=== PATIENT | male | born 1950 | race Caucasian/White ===

== ENCOUNTER → 2016-12-17 | Outpatient (CLI) | payer OTHER, MEDICARE ==
[~2016-12-17] MED LIST: ACET-1311 PO; ALT10 PO; ATEN-175 PO; CRS10 PO; GLC500 PO; LABE300T PO; PANT40TA PO; SPIR50TA2 PO
[2016-12-17 11:12] LABS: BASO % 0.3 %; BASO ABS # 0.03 K/uL (0-0.2); COMPLETE YES; EOS % 2.6 %; HEMATOCRIT 37.7 % (42-52); IG% 0.3 %; LYMPH % 16.7 %; LYMPH ABS # 1.51 K/uL (1.2-3.4); MEAN CELL VOLUME 91.1 fL (80-100); MEAN CORPUSCULAR HGB CONC 32.9 g/dl (32-36); MEAN PLATELET VOLUME 10.9 fL (7.4-10.4); MONO % 5.8 %; NEUT % 74.3 %; PLATELET COUNT 250 K/uL (130-400); RED BLOOD COUNT 4.14 M/uL (4.7-6.1); WHITE BLOOD COUNT 9.06 K/uL (4.8-10.8)
[2016-12-17 11:26] LABS: ESTIMATED AVERAGE GLUCOSE 151 mg/dl; HA1C FLAG Normal (Normal)
[2016-12-17 11:44] LABS: ALT/SGPT 21 U/L (12-78); AST/SGOT 12 U/L (15-37); BLOOD UREA NITROGEN 15 mg/dl (7-18); BUN/CREATININE RATIO 13.7 (10-20); CALCIUM 8.5 mg/dl (8.5-10.1); CARBON DIOXIDE 26 mmol/L (21-32); CHLORIDE 102 mmol/L (98-107); GLUCOSE 140 mg/dl (70-99); SODIUM 138 mmol/L (136-145)
[2016-12-17 11:48] LABS: ALB/GLOB RATIO 0.9 (0.9-2); ALKALINE PHOSPHATASE 95 U/L (45-117); CHOLESTEROL 166 mg/dl (0-200); CHOLESTEROL/HDL RATIO 4.3; HDL CHOLESTEROL 39 mg/dl; LDL CHOLESTEROL CALCULATED 81 mg/dl; TRIGLYCERIDES 229 mg/dl (0-150); VERY LOW DENSITY LIPOPROT CALC 46 mg/dl
[2016-12-17 11:50] LABS: RATIO 104.3 mcg/mg (0-30.0)
== END | disposition home or self-care (01) ==
LOC: C.LAB1850 09:49
PROVIDERS: ATTEND Nurse Practitioner Family
DX: E11.9 Type 2 diabetes mellitus without complications (principal); I10 Essential (primary) hypertension; E78.00 Pure hypercholesterolemia, unspecified; E88.81 Metabolic syndrome and other insulin resistance; K21.9 Gastro-esophageal reflux disease without esophagitis

== ENCOUNTER → 2017-01-21 | Outpatient (CLI) | payer OTHER, MEDICARE ==
[~2017-01-21] MED LIST changes: +ATEN50TA8 PO; +ATOR-24 PO; +CHOL20007 PO; +GLIM1TAB2 PO; +KRIL1000 PO; +LABE1TAB28 PO; +METF-384 PO; +RAMI10CA PO; +[UNRECOGNIZED DRUG - CODE] PO; +[UNRECOGNIZED DRUG - OTHER] PO
[2017-01-21 12:52] LABS: URINE APPEARANCE CLEAR (CLEAR); URINE BILIRUBIN NEG (NEG); URINE COLOR YELLOW; URINE EPITHELIAL CELL AUTO >30 /lpf (0-5); URINE NITRITE NEG (NEG); URINE SPECIFIC GRAVITY 1.011 (1.000-1.030); UROBILINOGEN NEG (NEG); ZZUR CULT IF INDIC CLEAN CATCH NO
[2017-01-21 12:57] LABS: MANUAL MICROSCOPIC REQUIRED? NO; REVIEW REQ? NO
[2017-01-21 13:06] LABS: URINE PROTIEN/CREAT RATIO 0.2 (0-0.2); URINE TOTAL PROTEIN 9.6 mg/dl (0-11.9)
[2017-01-21 13:14] LABS: BLOOD UREA NITROGEN 25 mg/dl (7-18); CARBON DIOXIDE 22 mmol/L (21-32); CHLORIDE 101 mmol/L (98-107); GLUCOSE 151 mg/dl (70-99); POTASSIUM 5.2 mmol/L (3.5-5.1); SODIUM 133 mmol/L (136-145)
[2017-01-21 13:15] LABS: PHOSPHORUS 3.2 mg/dl (2.5-4.9)
[2017-01-21 13:29] LABS: CALCIUM 9.6 mg/dl (8.5-10.1)
[2017-01-23 06:12] LABS: ALBUMIN 3.8 G/DL (3.8-4.8); ALBUMIN % 67.66 %; ALPHA-2-GLOBULIN % 9.07 %; BETA GLOBULIN % 11.58 %; CREATININE UR 58 MG/DL (20-370); GAMMA GLOBULIN 0.8 G/DL (0.8-1.7); GAMMA GLOBULIN % 6.11 %; TOTAL PROTEIN 6.9 G/DL (6.2-8.3)
--- NOTE | 2017-01-29 06:58 | CODING QUERY MEDICAL NECESSITY ---
CQSUPPORTING DIAGNOSIS NEEDED A supporting diagnosis is required for the test/procedure performed on this patient in order for us to be reimbursed by the patient's insurance. Please provide a supporting diagnosis for the following test/procedure listed below next to the test name along with your signature. *If there is no additional diagnosis for this patient that would support the following test/procedure please document that below next to the test/procedure. Test(s)/Procedure(s) that require a supporting diagnosis: DOS 01/21/17 VITAMIN D TEST Provider Signature: Date: Thank you Tamie Barakat Health Information Management Once completed, please kindly fax back to [phone] For questions please call [phone]
== END | disposition home or self-care (01) ==
LOC: C.LAB1850 10:41
PROVIDERS: ATTEND Internal Medicine Nephrology
DX: E83.42 Hypomagnesemia (principal); R80.9 Proteinuria, unspecified; E55.9 Vitamin D deficiency, unspecified

== ENCOUNTER → 2017-04-07 | Outpatient (CLI) | payer OTHER, MEDICARE ==
[~2017-04-07] MED LIST changes: -ATEN50TA8 PO; -ATOR-24 PO; -CHOL20007 PO; -GLIM1TAB2 PO; -KRIL1000 PO; -LABE1TAB28 PO; -METF-384 PO; -RAMI10CA PO; -[UNRECOGNIZED DRUG - CODE] PO; -[UNRECOGNIZED DRUG - OTHER] PO
[2017-04-07 10:57] LABS: ALT/SGPT 23 U/L (12-78); AST/SGOT 16 U/L (15-37); BLOOD UREA NITROGEN 25 mg/dl (7-18); BUN/CREATININE RATIO 17.9 (10-20); CARBON DIOXIDE 24 mmol/L (21-32); CHLORIDE 103 mmol/L (98-107); GLUCOSE 139 mg/dl (70-99); MAGNESIUM 1.9 mg/dl (1.8-2.4); POTASSIUM 5.4 mmol/L (3.5-5.1); SODIUM 136 mmol/L (136-145)
[2017-04-07 10:59] LABS: ALKALINE PHOSPHATASE 99 U/L (45-117)
[2017-04-07 11:22] LABS: RATIO 7.3 mcg/mg (0-30.0)
[2017-04-07 11:27] LABS: ESTIMATED AVERAGE GLUCOSE 143 mg/dl; HA1C FLAG Normal (Normal)
== END | disposition home or self-care (01) ==
LOC: C.LAB1850 09:26
PROVIDERS: ATTEND Internal Medicine Nephrology
DX: I10 Essential (primary) hypertension (principal); E78.00 Pure hypercholesterolemia, unspecified; E88.81 Metabolic syndrome and other insulin resistance; K21.9 Gastro-esophageal reflux disease without esophagitis; E83.42 Hypomagnesemia; E11.40 Type 2 diabetes mellitus with diabetic neuropathy, unspecified; Z12.11 Encounter for screening for malignant neoplasm of colon

== ENCOUNTER → 2017-05-19 | Outpatient (CLI) | payer OTHER, MEDICARE ==
[2017-05-19 12:59] LABS: BLOOD UREA NITROGEN 20 mg/dl (7-18); BUN/CREATININE RATIO 14.2 (10-20); CALCIUM 9.4 mg/dl (8.5-10.1); CARBON DIOXIDE 23 mmol/L (21-32); CHLORIDE 102 mmol/L (98-107); GLUCOSE 155 mg/dl (70-99); POTASSIUM 4.9 mmol/L (3.5-5.1); SODIUM 132 mmol/L (136-145)
== END | disposition home or self-care (01) ==
LOC: C.LAB1850 10:30
PROVIDERS: ATTEND Nurse Practitioner Family
DX: E87.5 Hyperkalemia (principal)

== ENCOUNTER → 2017-07-28 | Outpatient (CLI) | payer OTHER, MEDICARE ==
[~2017-07-28] MED LIST changes: +ATEN50TA8 PO; +ATOR-24 PO; +CHOL20007 PO; +GLIM1TAB2 PO; +KRIL1000 PO; +LABE1TAB28 PO; +METF-384 PO; +RAMI10CA PO; +[UNRECOGNIZED DRUG - CODE] PO; +[UNRECOGNIZED DRUG - OTHER] PO
[2017-07-28 13:25] LABS: ESTIMATED AVERAGE GLUCOSE 140 mg/dl; HA1C FLAG Normal (Normal)
[2017-07-28 13:52] LABS: ALT/SGPT 18 U/L (12-78); AST/SGOT 13 U/L (15-37); BLOOD UREA NITROGEN 22 mg/dl (7-18); BUN/CREATININE RATIO 16.5 (10-20); CALCIUM 9.1 mg/dl (8.5-10.1); CARBON DIOXIDE 23 mmol/L (21-32); CHLORIDE 102 mmol/L (98-107); CHOLESTEROL 181 mg/dl (0-200); CREATININE 1.33 mg/dl (0.60-1.40); GLUCOSE 152 mg/dl (70-99); MAGNESIUM 1.8 mg/dl (1.8-2.4); POTASSIUM 4.5 mmol/L (3.5-5.1); SODIUM 135 mmol/L (136-145); TRIGLYCERIDES 215 mg/dl (0-150); VERY LOW DENSITY LIPOPROT CALC 43 mg/dl
[2017-07-28 13:57] LABS: ALKALINE PHOSPHATASE 107 U/L (45-117); CHOLESTEROL/HDL RATIO 4.9; HDL CHOLESTEROL 37 mg/dl; LDL CHOLESTEROL CALCULATED 101 mg/dl; PHOSPHORUS 3.4 mg/dl (2.5-4.9)
[2017-07-28 15:21] LABS: RATIO 31.1 mcg/mg (0-30.0)
[2017-07-30 17:23] LABS: ALBUMIN 3.8 G/DL (3.8-4.8); GAMMA GLOBULIN 0.7 G/DL (0.8-1.7); TOTAL PROTEIN 6.5 G/DL (6.2-8.3)
== END | disposition home or self-care (01) ==
LOC: C.LAB1850 10:32
PROVIDERS: ATTEND Internal Medicine Nephrology
DX: R80.9 Proteinuria, unspecified (principal); E11.9 Type 2 diabetes mellitus without complications; I10 Essential (primary) hypertension; E78.00 Pure hypercholesterolemia, unspecified; E88.81 Metabolic syndrome and other insulin resistance; E87.5 Hyperkalemia

== ENCOUNTER → 2017-08-20 | Day surgery (SDC) | payer OTHER, MEDICARE ==
[2017-08-06 14:38] VITALS: BMI 49.0
[~2017-08-20] VITALS: Ht 172.7 cm; Wt 145.4 kg
[~2017-08-20] MED LIST changes: -ACET-1311 PO; -ALT10 PO; -ATEN-175 PO; -CRS10 PO; -GLC500 PO; -LABE300T PO; +PROPOFOL IV EMULSION 10 MG/ML 20 ML VIAL IV ONE; +SODIUM CHLORIDE 0.9% 500ML 500 ML IV ONE; -[UNRECOGNIZED DRUG - CODE] PO
[2017-08-20 08:09] VITALS: Ht 172.7 cm; Wt 145.4 kg
--- NOTE | 2017-08-20 08:51 | Endo History and Physical ---
History & Physical Date of Service: Aug 20, 2017. Chief Complaint: screening Referring Physician: Hai EVANS History of Present Illness 66 yo CM who presents for screening colonoscopy. Past Surgical History Hx Cardiac Surgery: No Hx Internal Defibrillator: No Hx Pacemaker: No Hx Abdominal Surgery: No Hx of Implantable Prosthesis: No Hx Post-Op Nausea and Vomiting: No Hx Cancer Surgery: No Hx Thoracic Surgery: No Hx Orthopedic: No Hx Urinary Tract Surgery: No Family History None Social History Smoking Status: Former Smoker Hx Substance Use: No Hx Alcohol Use: No Allergies Coded Allergies: No Known Allergies (Verified , NONE, 08/20/17) Current Medications Reported Home Medications Medications Dose Route/Sig Max Daily Dose Days Date Category Glucophage (Metformin Hcl) 1,000 Mg Tab 1,000 Mg PO BID 08/06/17 Reported Vitamin D3 (Cholecalciferol) 2,000 Unit Tab 1 Tab PO DAILY 08/06/17 Reported Krill Oil 1 Cap Cap 1 Cap PO DAILY 08/06/17 Reported [Super Mag] 400 Mg PO QID 08/06/17 Reported Protonix (Pantoprazole Sodium) 40 Mg Tab 40 Mg PO BID PRN 08/06/17 Reported Lipitor (Atorvastatin Calcium) 40 Mg Tab 40 Mg PO QPM 08/06/17 Reported Glimepiride 1 Mg Tab 1 Tab PO BID 08/06/17 Reported Normodyne (Labetalol HCl) 200 Mg Tab 200 Mg PO QAM 08/06/17 Reported Aldactone (Spironolactone) 50 Mg Tab 50 Mg PO BID 08/06/17 Reported Tenormin (Atenolol) 50 Mg Tab 50 Mg PO BID 08/06/17 Reported Ramipril 10 Mg Cap 1 Cap PO QAM 08/06/17 Reported Vital Signs Weight (Kilograms): 145.45 Height (Feet): 5 Height (Inches): 8 Date Time Temp Pulse Resp B/P (MAP) Pulse Ox O2 Delivery O2 Flow Rate FiO2 08/20/17 08:16 36.9 72 18 143/100 (114) 93 Room Air Physical Exam General Appearance: WD/WN, no apparent distress Respiratory/Chest: Auscultation: breath sounds normal Cardiovascular: Heart Auscultation: RRR Abdomen: Bowel Sounds: normal Inspection & Palpation: soft, non-distended, no tenderness, guarding & rebound Assessment and Plan Assessment: 66 yo CM who presents for screening colonoscopy. Plan: Proceed with colonoscopy.
--- NOTE | 2017-08-20 09:35 | Anesthesiology Progress Note ---
Anesthesia Post Op Note Date & Time Aug 20, 2017 at 09:35 Vital Signs Pain Intensity: 0 Vital Signs Past 12 Hours Date Time Temp Pulse Resp B/P (MAP) Pulse Ox O2 Delivery O2 Flow Rate FiO2 08/20/17 09:25 72 16 98/53 (68) 95 Room Air 08/20/17 08:16 36.9 72 18 143/100 (114) 93 Room Air Notes Mental Status: alert / awake / arousable, participated in evaluation Pt Amnestic to Procedure: Yes Nausea / Vomiting: adequately controlled Pain: adequately controlled Airway Patency, RR, SpO2: stable & adequate BP & HR: stable & adequate Hydration State: stable & adequate Anesthetic Complications: no major complications apparent
--- NOTE | 2017-08-20 09:41 | Discharge Instructions ---
Endoscopy Patient Instructions Date / Procedure(s) Performed Aug 20, 2017. Colonoscopy Allergy Information Coded Allergies: No Known Allergies (Verified , NONE, 08/20/17) Discharge Date / Findings Aug 20, 2017. Colon polyps Diverticulosis Internal hemorrhoids Medication Instructions Stopped Medication(s): METFORMIN AND SUPPLEMENTS OK to resume all medications today as prescribed Reported Home Medications Medications Dose Route/Sig Max Daily Dose Days Date Category Glucophage (Metformin Hcl) 1,000 Mg Tab 1,000 Mg PO BID 08/06/17 Reported Vitamin D3 (Cholecalciferol) 2,000 Unit Tab 1 Tab PO DAILY 08/06/17 Reported Krill Oil 1 Cap Cap 1 Cap PO DAILY 08/06/17 Reported [Super Mag] 400 Mg PO QID 08/06/17 Reported Protonix (Pantoprazole Sodium) 40 Mg Tab 40 Mg PO BID PRN 08/06/17 Reported Lipitor (Atorvastatin Calcium) 40 Mg Tab 40 Mg PO QPM 08/06/17 Reported Glimepiride 1 Mg Tab 1 Tab PO BID 08/06/17 Reported Normodyne (Labetalol HCl) 200 Mg Tab 200 Mg PO QAM 08/06/17 Reported Aldactone (Spironolactone) 50 Mg Tab 50 Mg PO BID 08/06/17 Reported Tenormin (Atenolol) 50 Mg Tab 50 Mg PO BID 08/06/17 Reported Ramipril 10 Mg Cap 1 Cap PO QAM 08/06/17 Reported Provider Instructions Activity Restrictions - No exercising or heavy lifting for 24 hours. - Do not drink alcohol the day of the procedure. - Do not drive a car or operate machinery until the day after the procedure. - Do not make any important decisions or sign important papers in 24 hours after the procedure. Following Day: - Return to full activity which may include returning to work/school. Diet Start your diet with liquids and light foods (jello, soup, juice, toast). Then eat your usual diet if not nauseated. Treatment For Common After Affects For mild abdominal pain, bloating, or excessive gas: - Rest - Eat lightly - Lie on right side Follow-Up Information Follow-up with Hai EVANS as scheduled Anesthesia Information What You Should Know You have had a procedure that required some medicine to reduce anxiety and discomfort. This treatment is called moderate sedation. After receiving the treatment, you may be sleepy, but you will be able to breathe on your own. The effects of the treatment may last for several hours. Follow these instructions along with Activity/Diet recommendations noted above: * Do NOT do anything where dizziness or clumsiness would be dangerous. * Rest quietly at home today, then you can be up and about tomorrow. * Have a responsible person stay with you the rest of today. * You may have had an I.V. today. If so, you may take the dressing off later today. Recommendations Call your doctor if: * Trouble breathing * Continuous vomiting for more than 24 hours * Temperature above 101 degrees * Severe abdominal pain or bloating * Pain not relieved by pain medicine ordered * There is increased drainage or redness from any incision * A large amount of rectal bleeding greater than 2-3 tablespoons. (If you had a polyp/s removed or have hemorrhoids, a small amount of blood - from the rectum is to be expected.) * You have any unanswered questions or concerns. IN THE EVENT OF A SERIOUS EMERGENCY, GO TO THE NEAREST EMERGENCY ROOM Your discharge instructions were prepared by provider Gerardo Ibrahim. Patient Instructions Signature Page Henri Granado Patient (or Guardian) Signature/Date: I have read and understand the instructions given to me by my caregivers. Caregiver/RN/Doctor Signature/Date: The above-named patient and/or guardian has received patient instructions on this date. + Original Patient Signature Page (only) stays with chart. Please make copy for patient.
[2017-08-20 09:58] VITALS: BP 124/62; PULSE 62; O2SAT 93
--- NOTE | 2017-08-20 10:32 | GI REPORT ---
Procedure Date: 08/20/2017 8:25 AM Procedure: Colonoscopy Indications: Screening for colorectal malignant neoplasm Medicines: Monitored Anesthesia Care Complications: No immediate complications. Estimated Blood Loss: Estimated blood loss: none. Procedure: Pre-Anesthesia Assessment: - Prior to the procedure, a History and Physical was performed, and patient medications and allergies were reviewed. The patient's tolerance of previous anesthesia was also reviewed. The risks and benefits of the procedure and the sedation options and risks were discussed with the patient. All questions were answered, and informed consent was obtained. Prior Anticoagulants: The patient has taken no previous anticoagulant or antiplatelet agents. ASA Grade Assessment: III - A patient with severe systemic disease. After reviewing the risks and benefits, the patient was deemed in satisfactory condition to undergo the procedure. After I obtained informed consent, the scope was passed under direct vision. Throughout the procedure, the patient's blood pressure, pulse, and oxygen saturations were monitored continuously. The scope was introduced through the anus and advanced to the terminal ileum. The colonoscopy was performed without difficulty. The patient tolerated the procedure well. The quality of the bowel preparation was good. The terminal ileum, ileocecal valve, appendiceal orifice, and rectum were photographed. Findings: Four sessile polyps were found in the sigmoid colon and in the ascending colon. The polyps were 4 to 7 mm in size. These polyps were removed with a hot snare. Resection and retrieval were complete. Multiple small-mouthed diverticula were found in the sigmoid colon. Non-bleeding internal hemorrhoids were found during retroflexion. The hemorrhoids were small. Impression: - Four 4 to 7 mm polyps in the sigmoid colon and in the ascending colon, removed with a hot snare. Resected and retrieved. - Diverticulosis in the sigmoid colon. - Non-bleeding internal hemorrhoids. Recommendation: - Resume previous diet. - Continue present medications. - Repeat colonoscopy for surveillance based on pathology results. - Return to primary care physician as previously scheduled. Gerardo Ibrahim, DO 08/20/2017 9:46:14 AM This report has been signed electronically. Note Initiated On: 08/20/2017 8:25 AM I attest to the content of the Intraoperative Record and orders documented therein, exceptions below
== END | disposition home or self-care (01) ==
LOC: C.GI 07:28
PROVIDERS: ATTEND Internal Medicine
DX: Z12.11 Encounter for screening for malignant neoplasm of colon (principal); D12.5 Benign neoplasm of sigmoid colon; D12.2 Benign neoplasm of ascending colon; K64.8 Other hemorrhoids; K57.90 Diverticulosis of intestine, part unspecified, without perforation or abscess without bleeding

== ENCOUNTER → 2018-01-26 | Outpatient (CLI) | payer OTHER, MEDICARE ==
[~2018-01-26] MED LIST changes: -PROPOFOL IV EMULSION 10 MG/ML 20 ML VIAL IV ONE; -SODIUM CHLORIDE 0.9% 500ML 500 ML IV ONE
[2018-01-26 12:57] LABS: HEMOGLOBIN A1C 6.9 % (4.5-5.6)
[2018-01-26 13:05] LABS: ALBUMIN 3.4 gm/dl (3.4-5.0); ALT/SGPT 21 U/L (12-78); AST/SGOT 15 U/L (15-37); BLOOD UREA NITROGEN 26 mg/dl (7-18); CARBON DIOXIDE 24 mmol/L (21-32); CREATININE 1.36 mg/dl (0.60-1.40); GLUCOSE 144 mg/dl (70-99); POTASSIUM 4.6 mmol/L (3.5-5.1); SODIUM 134 mmol/L (136-145)
[2018-01-26 13:09] LABS: ALKALINE PHOSPHATASE 100 U/L (45-117); CHOLESTEROL 176 mg/dl (0-200); LDL CHOLESTEROL CALCULATED 94 mg/dl; PHOSPHORUS 3.5 mg/dl (2.5-4.9); TOTAL PROTEIN 7.5 gm/dl (6.4-8.2)
[2018-01-26 14:59] LABS: CREATININE RANDOM URINE 76.5 mg/dl
== END | disposition home or self-care (01) ==
LOC: C.LAB1850 10:08
PROVIDERS: ATTEND Internal Medicine Nephrology
DX: E87.5 Hyperkalemia (principal); R80.9 Proteinuria, unspecified; I10 Essential (primary) hypertension; E83.42 Hypomagnesemia; E11.9 Type 2 diabetes mellitus without complications; E78.00 Pure hypercholesterolemia, unspecified; E88.81 Metabolic syndrome and other insulin resistance

== ENCOUNTER 2024-02-01 13:26 | Inpatient (IN) ==
[2024-02-01 14:27] LABS: Basophils # (auto) 0.06 K/uL (0.00-0.20); Basophils % (auto) 0.5 %; Eosinophils # (auto) 0.26 K/uL (0.00-0.50); Eosinophils % (auto) 2.2 %; Hematocrit (blood only) 40.8 % (42.0-52.0); Hemoglobin 13.5 g/dl (14.0-18.0); Immature Granulocytes # (auto) 0.04 K/uL (0.01-0.20); Immature Granulocytes % (auto) 0.3 %; Lymphocytes # (auto) 1.86 K/uL (1.20-3.40); Lymphocytes % (auto) 15.7 %; Mean Corpuscular Hgb Conc 33.1 g/dL (32.0-36.0); Mean Corpuscular Volume 93.6 fL (80.0-100.0); Mean Platelet Volume 10.4 fL (9.4-12.4); Monocytes # (auto) 0.84 K/uL (0.11-0.59); Monocytes % (auto) 7.1 %; Neutrophils # (auto) 8.78 K/uL (1.40-6.50); Neutrophils % (auto) 74.2 %; Platelet Count 210 K/uL (130-400); RDW Coefficient of Variation 12.9 % (11.5-14.5); RDW Standard Deviation 44.2 fL (36.4-46.3); Red Blood Count 4.36 M/uL (4.70-6.10); White Blood Count 11.84 K/ul (4.8-10.8)
[2024-02-01 14:39] LABS: Alanine Aminotransferase 16 U/L (7-52); Albumin Globulin Ratio 1.6 (0.9-2); Albumin Level 4.3 gm/dl (3.4-5.0); Alkaline Phosphatase 74 U/L (34-104); Anion Gap 11 (3-11); Aspartate Aminotransferase 18 U/L (13-39); BUN Creatinine Ratio 11.7 (10-20); Bilirubin,Total 0.4 mg/dl (0.2-1.0); Blood Urea Nitrogen 20 mg/dl (6-23); Calcium 8.9 mg/dl (8.6-10.3); Carbon Dioxide 22 mmol/L (21-32); Chloride 107 mmol/L (98-107); Creatinine Clr Calc Pharmacy 42.1 ml/min; Est GFR (African American) 45.4 ml/min; Est GFR (Non-African American) 39.1 ml/min; Globulin 2.7 gm/dl (2.5-4.0); Glucose 103 mg/dl (70-99(Fasting)); Potassium 3.6 mmol/L (3.5-5.1); Sodium 140 mmol/L (136-145)
--- NOTE | 2024-02-01 14:51 | Emergency Department Note ---
Impression & Plan Weakness, Diarrhea ED Provider Note NAME: GABRIELLA BECKER AGE: 73 SEX: Male INFORMANT: Patient ED PROVIDER(S): Alin Oliveira MD CHIEF COMPLAINT: Weakness PLAN: Disposition: Admitted Outpatient prescription management: None Referral: None MEDICAL DECISION MAKING: Patient presented to the emergency room because of feeling increased weakness. He noted having low magnesium and sodium on outpatient lab testing. He has decreased his magnesium supplementation due to loose stool which she states is a recurrent issue for him. The patient had an IV established. Blood work was obtained. Patient sodium was normal on testing. His magnesium was undetectable which was very concerning. IV magnesium replacement was ordered. Patient had a slight leukocytosis. Due to to the weakness and complaints of some back discomfort he did have x-ray imaging of the chest and thoracic spine. No abnormalities were noted. Patient will need further management in the hospital. [facility] Case was discussed with Dr. Barnhart and evaluated the patient in the ER and admitted him for further management and magnesium replacement. Care/management discussed with: manager vehicle Level of care consideration(s): After review of the information above and other included data, I feel the patient requires escalation of care to admission Triage Nursing notes: reviewed and agree them. Vital Signs: reviewed and remarkable for hypertension Additional History obtained from: none Chronic Medical/Social Conditions affecting care: Diabetes Prior/ Outside/ External records reviewed: none Differential Diagnosis: Infection, dehydration, metabolic abnormality, hypo/hyperglycemia, electrolyte disturbance, anemia, hypoxia, cardiac sources, intracerebral event, toxicologic, neurologic, as well as other pathologies. Diagnostics, independently interpreted by me: ECG: Twelve-lead ECG rhythm normal sinus rate 65 bpm low-voltage QRS. No ST elevation depression. Cardiac Monitoring: Cardiac monitoring ordered by me: The patient was placed on continuous cardiac monitoring and observed. It revealed a normal sinus rhythm at 65 beats per minute without ectopy or evidence of dysrhythmia. Medical decision rules: none Imaging studies: Chest x-ray. Findings: A chest x-ray was performed and revealed no pneumothorax, effusion, infiltrate, pulmonary edema, free air under the diaphragm, or wide mediastinum. Impression: No acute disease. RIB FRACTURE CARE: Definitive fracture care for rib fractures. Closed injury. No associated lung trauma. Patient educated, pain management reinforced, follow-up instructions provided. HPI: 73 year old Male arrives for evaluation of weakness. This started over the last and is seem to improve yesterday but then worsened in the afternoon and throughout the day today. The patient also notes the following associated symptoms, fluctuating levels of diarrhea and nausea. Patient felt more weak this afternoon and presented to the emergency department for evaluation.. The patient has taken no medication for relieving factors. Current pain is rated as mild. Patient noted some discomfort in his lower thoracic back. Denies any trauma. Patient states that he had outpatient blood work done and his magnesium was low at 1.2. His sodium was 130. Pt denies LOC, headache, fevers, chills, diaphoresis, neck pain, chest pain, breathing difficulties, vomiting, abdominal pain, back pain, melena, hematochezia, urinary symptoms, numbness, lymphadenopathy, rash, or other complaints. . PAST MEDICAL HISTORY: See Below, diabetes PAST SURGICAL HISTORY: See Below, SOCIAL HISTORY: See Below, retired HOME MEDICATIONS: See Below ALLERGIES: See Below VITALS: See Below PHYSICAL EXAMINATION: GENERAL: Awake, tired-appearing, in no distress HENT: Normocephalic, atraumatic. Oropharynx unremarkable. EYES: Normal conjunctiva. Sclera non-icteric. NECK: Inspection normal. Non-tender. Supple. No nuchal rigidity. FROM. No masses. RESPIRATORY: Clear to auscultation. No wheezes. No rales. Normal respiratory effort. CARDIAC: Normal rate. Normal rhythm. No murmurs. No rubs. Extremities warm and well perfused. Pulses equal. No JVD. GI: Soft, non-distended. No tenderness to palpation. No rebound or guarding. No masses. RECTAL: Deferred. MUSCULOSKELETAL: Atraumatic. Chest examination reveals no tenderness. The back is kyphotic on inspection without obvious abnormality. There is no CVA tenderness to palpation. No joint edema. LOWER EXTREMITIES: Calves are equal size bilaterally and non-tender. No edema. No discoloration. NEURO: Normal sensorium. No foot sensory or motor deficits noted. Mild resting tremor SKIN: No rash or jaundice noted. PROCEDURES: none CRITICAL CARE: none OBSERVATION NOTE: none Past Med/Surg History Medical History Hypomagnesemia Osteoarthritis Diabetes mellitus Gastroesophageal reflux disease Hypercholesterolemia Hypertension Obesity Proteinuria Surgical History No significant past surgical history Family History Father Congestive heart failure Mother Coronary heart disease Myocardial infarction Type 2 diabetes mellitus Brother Essential hypertension Sister Myocardial infarction Denies family history of Ovarian cancer Prostate cancer Kidney disease Breast cancer Colorectal cancer Social History Smoking Status: Former smoker Tobacco Type: Cigarettes Age Started Using Tobacco: 21; Second Hand Exposure: No; Do You Dip or Chew Tobacco: No; Hx Alcohol Use: No Hx Substance Use: No Preferred Language: Polish Communication Ability: Effective Visual Impairment: No Limitations Hearing Ability: Normal Consumer Lender Required: No Beliefs That Will Affect Care: None marital status: Single Current Living Situation: Family current occupational status: retired Feels Safe at Home: Yes Childhood Exposure to Second-Hand Smoke: No Diet: regular caffeine: Yes during the past year weight has: remained stable Dental Care, Regularly: Yes Physical Activity Frequency: Does not Exercise Seatbelt Use: always Sunscreen Use: No Assistive Devices: Glasses Allergies Allergies Allergy/AdvReac Type Severity Reaction Status Date / Time No Known Allergies Allergy Verified 02/01/24 15:20 Home Meds Home Medications Medication Instructions Recorded Confirmed [facility]/19 01/27/24 Ultra Blue Test Strip) cholecalciferol (vitamin D3) 25 3,000 units PO QDL 06/24/19 02/01/24 mcg (1,000 unit) capsule lancets 33 gauge (One[facility] #100 ea 06/24/19 01/27/24 Lancets) flaxseed 1,000 mg capsule 1,000 mg PO QDL 05/28/23 02/01/24 krill 500 mg-omega-3 150 mg-dha 45 1 cap PO QDL 05/28/23 02/01/24 mg-epa 75 [id number] capsule (krill oil) vitamin B complex 1 cap PO QPM 05/28/23 02/01/24 atenolol 50 mg tablet 25 mg PO QAM 02/01/24 02/01/24 atorvastatin 20 mg tablet 20 mg PO DAILY 02/01/24 02/01/24 atorvastatin 40 mg tablet 40 mg PO DAILY 02/01/24 02/01/24 spironolactone 50 mg tablet 50 mg PO QDL 02/01/24 02/01/24 Previous Rx's Medication Instructions Recorded furosemide 20 mg tablet 20 mg PO DAILY PRN edema #90 tabs 07/16/22 ramipril 10 mg capsule 10 mg PO BID #180 caps 07/02/23 diclofenac sodium 1 % topical gel 4 g topical QID PRN Joint Pain 90 07/04/23 days #300 grams glimepiride 1 mg tablet 1 mg PO BID #180 tabs 01/19/24 magnesium chloride 64 mg 64 mg PO BID #180 tabs 01/26/24 (magnesium chloride) tablet,delayed release pantoprazole 40 mg tablet,delayed 40 mg PO DAILY #90 tabs 01/26/24 release metformin 1,000 mg tablet 1,000 mg PO DAILY #90 tabs 01/27/24 Results & Data (ED) Vital Signs Vital Signs - 24 hr 02/01/24 13:40 02/01/24 15:07 Temperature 36.3 C L Temperature Source Temporal Artery Scan Pulse Rate 69 65 Respiratory Rate 20 Respiratory Effort / Characteristics Non-Labored Spontaneous Respiratory Depth Normal Blood Pressure 159/96 H Blood Pressure Mean 117 Pulse Oximetry 97 Oxygen Delivery Method Room Air Sepsis Recent Fever Within 48 Hours No Sepsis New/Unexplained Change in Mental Status N/A Sepsis Action Taken by Nursing No Action Required Laboratory Data 02/01/24 14:01 02/01/24 14:01 Lab Results 02/01/24 Range/Units 14:01 WBC 11.84 H (4.8-10.8) K/ul RBC 4.36 L (4.70-6.10) M/uL Hgb 13.5 L (14.0-18.0) g/dl Hct 40.8 L (42.0-52.0) % MCV 93.6 (80.0-100.0) fL MCH 31.0 (25.0-34.0) pg MCHC 33.1 (32.0-36.0) g/dL RDW Std Deviation 44.2 (36.4-46.3) fL RDW Coeff of Jonathan 12.9 (11.5-14.5) % Plt Count 210 (130-400) K/uL MPV 10.4 (9.4-12.4) fL Immature Gran % (Auto) 0.3 % Neut % (Auto) 74.2 % Lymph % (Auto) 15.7 % Webb % (Auto) 7.1 % Eos % (Auto) 2.2 % Baso % (Auto) 0.5 % Neut # (Auto) 8.78 H (1.40-6.50) K/uL Lymph # (Auto) 1.86 (1.20-3.40) K/uL Webb # (Auto) 0.84 H (0.11-0.59) K/uL Eos # (Auto) 0.26 (0.00-0.50) K/uL Baso # (Auto) 0.06 (0.00-0.20) K/uL Immature Gran # (Auto) 0.04 (0.01-0.20) K/uL Sodium 140 (136-145) mmol/L Potassium 3.6 (3.5-5.1) mmol/L Chloride 107 (98-107) mmol/L Carbon Dioxide 22 (21-32) mmol/L Anion Gap 11 (3-11) BUN 20 (6-23) mg/dl Creatinine 1.71 H (0.6-1.4) mg/dl Est Cr Clr Drug Dosing 42.1 ml/min Est GFR ( Amer) 45.4 ml/min Est GFR (Non-Af Amer) 39.1 ml/min BUN/Creatinine Ratio 11.7 (10-20) Glucose 103 H (70-99(Fasting)) mg/dl Calcium 8.9 (8.6-10.3) mg/dl Magnesium < 0.5 L* (1.7-2.4) mg/dl Total Bilirubin 0.4 (0.2-1.0) mg/dl AST 18 (13-39) U/L ALT 16 (7-52) U/L Alkaline Phosphatase 74 (34-104) U/L Troponin I High Sens 10.8 (0-20) pg/ml Total Protein 7.0 (6.0-8.3) gm/dl Albumin 4.3 (3.4-5.0) gm/dl Globulin 2.7 (2.5-4.0) gm/dl Albumin/Globulin Ratio 1.6 (0.9-2) Administered Medications Discontinued Medications Sodium Chloride (Nss) 500 mls @ 999 mls/hr IV .Q31M ONE Stop: 02/01/24 15:15 Last Infusion: 02/01/24 15:29 Dose: Infused Documented By: Admin: 02/01/24 14:52 Dose: 999 mls/hr Documented By: ELISABETH Sodium Chloride (Nss) 1,000 mls @ 125 mls/hr IV .Q8H [facility] Stop: 03/02/24 14:44 Last Admin: 02/01/24 15:30 Dose: 125 mls/hr Documented By: FAY Magnesium Sulfate/Dextrose (Magnesium Sulfate / D5w) 1 gm in 100 mls @ 100 mls/hr IV ONE ONE Stop: 02/01/24 16:24 Last Admin: 02/01/24 16:59 Dose: 100 mls/hr Documented By: FAY Magnesium Sulfate/Dextrose (Magnesium Sulfate / D5w) 1 gm in 100 mls @ 200 mls/hr IV Q30M [facility] Stop: 02/01/24 16:31 Last Infusion: 02/01/24 17:02 Dose: Infused Documented By: Admin: 02/01/24 16:24 Dose: 200 mls/hr Documented By: Infusion: 02/01/24 16:23 Dose: Infused Documented By: Admin: 02/01/24 15:50 Dose: 200 mls/hr Documented By: DAI Potassium Chloride (Potassium Chloride Crtab 20 Meq Tabcr) 40 meq PO NOW STA Stop: 02/01/24 16:09 Last Admin: 02/01/24 16:34 Dose: 40 meq Documented By: FAY Imaging Data Radiologist's Impression: Chest X-Ray 02/01/24 14:46 XR chest 2V PA/lateral HISTORY: weakness, back pain, nausea COMPARISON: Chest 04/03/2010. FINDINGS: The lungs are clear. Cardiac silhouette is normal in size. No pleural effusions. No pneumothorax. Degenerative changes within the right shoulder and lower thoracic spine. Calcified granuloma seen within the base of the left lower lobe. IMPRESSION: No acute process. ACT 112: Negative or not required by law. Electronically signed by: Raul Willams M.D. 02/01/2024 3:25 PM Thoracic Spine X-Ray 02/01/24 14:46 THORACIC SPINE 3 VIEWS HISTORY: low thoracic back pain COMPARISON: Chest 05/24/2009. FINDINGS: There is no fracture. No subluxation. Moderate to severe disc space narrowing within the lower thoracic spine. Mild disc space narrowing within the upper to mid thoracic spine IMPRESSION: No fracture or subluxation within the thoracic spine. Degenerative changes most pronounced within the lower thoracic spine. ACT 112: Negative or not required by law. Electronically signed by: Raul Willams M.D. 02/01/2024 3:23 PM Discharge Plan Visit Data Chief Complaint: Weakness Stated Complaint: WEAK/SHAKEY/PAIN [facility] Provider: Alin Oliveira Discharge Problem: Weakness, Diarrhea Forms Stand Alone Forms: [facility] Prescriptions Prescriptions: No Action furosemide 20 mg tablet 20 mg PO DAILY PRN (Reason: edema) Qty: 90 1RF ramipril 10 mg capsule 10 mg PO BID Qty: 180 3RF diclofenac sodium 1 % gel 4 g topical QID PRN (Reason: Joint Pain) 90 Days Qty: 300 1RF Rx Instructions: apply to single knee, ankle, foot; for foot includes sole/toes/top of foot glimepiride 1 mg tablet 1 mg PO BID Qty: 180 3RF (DME) OneTouch Ultra Blue Test Strip strip See Dose Instructions .ROUTE .MEDSUPPLY Qty: 10 Rx Instructions: As directed (DME) lancets [OneTouch [employer] Lancets] 33 gauge misc See Dose Instructions .ROUTE .MEDSUPPLY Qty: 100 Rx Instructions: As directed cholecalciferol (vitamin D3) 1,000 unit capsule 3,000 units PO QDL Hold Instructions: Home Medication placed on hold at Doctor's office magnesium chloride 64 mg tablet,delayed release (DR/EC) 64 mg PO BID Qty: 180 3RF pantoprazole 40 mg tablet,delayed release (DR/EC) 40 mg PO DAILY Qty: 90 3RF metformin 1,000 mg tablet 1,000 mg PO DAILY Qty: 90 3RF vitamin B complex Capsule 1 cap PO QPM flaxseed 1,000 mg Capsule 1,000 mg PO QDL krill oil [id number] mg Capsule 1 cap PO QDL atorvastatin 40 mg tablet 40 mg PO DAILY Rx Instructions: TAKE 1 TABLET BY MOUTH DAILY TAKE ALONG WITH 20 MG TABLET FOR 60 MG DAILY atorvastatin 20 mg tablet 20 mg PO DAILY Rx Instructions: TAKE 1 TABLET BY MOUTH DAILY TAKE ALONG WITH 40 MG TABLET FOR 60 MG DAILY atenolol 50 mg tablet 25 mg PO QAM Rx Instructions: TAKE 1/2 TABLET BY MOUTH ONCE DAILY (qam) spironolactone 50 mg tablet 50 mg PO QDL Rx Instructions: TAKE 1 TABLET BY MOUTH DAILY (lunch) Referrals Referrals: Hai Khan III, CRNP [Primary Care Provider] -
[2024-02-01] MEDS: SODIUM CHLORIDE 0.9% 500 ML IV ONE (14:52)
[2024-02-01 15:11] LABS: Troponin I High Sensitivity 10.8 pg/ml (0-20)
[2024-02-01 15:24] LABS: Magnesium < 0.5 mg/dl (1.7-2.4)
--- NOTE | 2024-02-01 15:25 | XRay Report ---
THORACIC SPINE 3 VIEWS HISTORY: low thoracic back pain COMPARISON: Chest 05/24/2009. FINDINGS: There is no fracture. No subluxation. Moderate to severe disc space narrowing within the l ower thoracic spine. Mild disc space narrowing within the upper to mid thoracic spine IMPRESSION: No fracture or subluxation within the thoracic spine. Degenerative changes most pronounced within the lower thoracic spine. ACT 112: Negative or not required by law. Electronically signed by: Raul Willams M.D. 02/01/2024 3:23 PM
--- NOTE | 2024-02-01 15:27 | XRay Report ---
XR chest 2V PA/lateral HISTORY: weakness, back pain, nausea COMPARISON: Chest 04/03/2010. FINDINGS: The lungs are clear. Cardiac silhouette is normal in size. No pleural effusions. No pneumot horax. Degenerative changes within the right shoulder and lower thoracic spine. Calcified granuloma s een within the base of the left lower lobe. IMPRESSION: No acute process. ACT 112: Negative or not required by law. Electronically signed by: Raul Willams M.D. 02/01/2024 3:25 PM
[2024-02-01] MEDS: SODIUM CHLORIDE 0.9% 1,000 ML IV SCH (15:30)
[2024-02-01] MEDS: MAGNESIUM SULFATE / D5W 1 GM/100 ML BAG IV ONE (15:31)
--- NOTE | 2024-02-01 15:47 | History & Physical Report ---
Date of Service February 01, 2024 Assessment & Plan (1) Hypomagnesemia: Plan: Chronically low (on PPI) but acutely worse after stopping oral magnesium supplementation Mg sulfate 2g over 1 hour. Then 1g over 1 hour. Then 3g over 6 hours. Stop if bradycardic or he becomes short of breath and remeasure Mg level. Repeat Mg/BMP/PO q6h Aim Mg 3.6-4.9 overnight, K > 4 Consult nephrology (2) Gastroesophageal reflux disease: Plan: Continue pantoprazole, recently decreased to once daily (3) Diabetes mellitus: Plan: HbA1C 5.5 in December, no need to repeat Hold metformin, glyburide Novolog: --Goal BSG Range: Low 110 mg/dL, High 140 mg/dL --Correction Factor: 45 mg/dL/unit --Carbohydrate ratio = 15 g/unit --BSGs ACHS if eating, q6h if npo Consult pharmacy for ongoing glycemic control, may need basal tomorrow as his current morning medications are metabolized/excreted Plan HTN/hypercholesterolemia - continue his routine home meds VTE Prophylaxis - heparin 5000 units SQ BID Diet - T2DM Disposition - admit to PCU Admission and Anticipated Discharge Date Admission Date: February 01, 2024 History of Present Illness Chief Complaint: Generalized weakness Primary Care Provider: Hai Khan III, CRNP Henri Granado is a 73-year-old male who presents to the ER with generalized weakness, shakiness, back pain. He has a history of hypomagnesemia possibly secondary to PPI use (recently reduced from BID to daily dosing) with some diarrhea this week therefore he cut back on his magnesium as he felt this was contributing. No vision changes, no seizures or history of such, no palpitations. Symptoms started yesterday with generalized weakness, generally washed out, shaky, back pain above his ribs on both sides. His recent Mg level was 1.2 a week ago therefore with his current diarrhea he thought the Mg supplementation was not working. He switched to slow Mg a week ago but only took 3-4 tabs of this to avoid getting diarrhea. He feels his diarrhea has been worse since eating less and therefore the magnesium supplements having more of an effect since September. He was recently advised by his physician assistant surgery to cut back to once a day pantoprazole from BID and he has not noticed worsening of his GERD although he has had 10-15 seconds of nausea intermittently the last few days. Allergies Allergy/AdvReac Type Severity Reaction Status Date / Time No Known Allergies Allergy Verified 02/01/24 15:20 Home Medications Medication Instructions Recorded Confirmed Type blood sugar diagnostic (Viriuch #10 ea 06/24/19 01/27/24 History Ultra Blue Test Strip) cholecalciferol (vitamin D3) 25 3,000 units PO QDL 06/24/19 02/01/24 History mcg (1,000 unit) capsule lancets 33 gauge (Jazmine Delica #100 ea 06/24/19 01/27/24 History Lancets) furosemide 20 mg tablet 20 mg PO DAILY PRN edema #90 tabs 07/16/22 02/01/24 Rx flaxseed 1,000 mg capsule 1,000 mg PO QDL 05/28/23 02/01/24 History krill 500 mg-omega-3 150 mg-dha 45 1 cap PO QDL 05/28/23 02/01/24 History mg-epa 75 mt-fapctjo-gnllz capsule (krill oil) vitamin B complex 1 cap PO QPM 05/28/23 02/01/24 History ramipril 10 mg capsule 10 mg PO BID #180 caps 07/02/23 02/01/24 Rx diclofenac sodium 1 % topical gel 4 g topical QID PRN Joint Pain 90 07/04/23 02/01/24 Rx days #300 grams glimepiride 1 mg tablet 1 mg PO BID #180 tabs 01/19/24 02/01/24 Rx magnesium chloride 64 mg 64 mg PO BID #180 tabs 01/26/24 02/01/24 Rx (magnesium chloride) tablet,delayed release pantoprazole 40 mg tablet,delayed 40 mg PO DAILY #90 tabs 01/26/24 02/01/24 Rx release metformin 1,000 mg tablet 1,000 mg PO DAILY #90 tabs 01/27/24 02/01/24 Rx atenolol 50 mg tablet 25 mg PO QAM 02/01/24 02/01/24 History atorvastatin 20 mg tablet 20 mg PO DAILY 02/01/24 02/01/24 History atorvastatin 40 mg tablet 40 mg PO DAILY 02/01/24 02/01/24 History spironolactone 50 mg tablet 50 mg PO QDL 02/01/24 02/01/24 History Past Med/Surg History Medical History Hypomagnesemia Osteoarthritis Diabetes mellitus Gastroesophageal reflux disease Hypercholesterolemia Hypertension Obesity Proteinuria Surgical History No significant past surgical history Family History Father Congestive heart failure Mother Coronary heart disease Myocardial infarction Type 2 diabetes mellitus Brother Essential hypertension Sister Myocardial infarction Denies family history of Ovarian cancer Prostate cancer Kidney disease Breast cancer Colorectal cancer Social History Smoking Status: Former smoker Tobacco Type: Cigarettes Age Started Using Tobacco: 21; Second Hand Exposure: No; Do You Dip or Chew Tobacco: No; Hx Alcohol Use: No Hx Substance Use: No Preferred Language: Russian Communication Ability: Effective Visual Impairment: No Limitations Hearing Ability: Normal 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 Beliefs That Will Affect Care: None marital status: Single Current Living Situation: Family current occupational status: retired Feels Safe at Home: Yes Childhood Exposure to Second-Hand Smoke: No Diet: regular caffeine: Yes during the past year weight has: remained stable Dental Care, Regularly: Yes Physical Activity Frequency: Does not Exercise Seatbelt Use: always Sunscreen Use: No Assistive Devices: Glasses Review of Systems Review of Systems: All systems reviewed & are unremarkable except as noted in HPI & below Physical Exam Constitutional: WD/WN, vitals as above Eyes: PERRL, conjunctivae normal, anicteric sclerae no nystagmus ENMT: external ear and nose normal, oropharynx normal Respiratory: normal respiratory effort, lungs clear to auscultation Cardiovascular: RRR, no murmur, no edema Gastrointestinal (Abdomen): normal bowel sounds, soft, nontender, no hepatosplenomegaly Musculoskeletal: no cyanosis or clubbing, extremities motor strength 5/5 Skin: no rashes, warm and dry Neurologic: moves all extremities and awake; + abnormal deep tendon reflexes (hyperreflexia) and not confused Psychiatric: A+Ox3, euthymic affect Genitourinary: no CVA tenderness Results & Data Results & Data Vital Signs (Past 12 Hours) Vital Signs Temp Pulse Resp BP Pulse Ox O2 Del Method 02/01/24 15:07 65 02/01/24 13:40 36.3 C L 69 20 159/96 H 97 Room Air Laboratory Results Abnormal lab results 02/01/24 Range/Units 14:01 WBC 11.84 H (4.8-10.8) K/ul RBC 4.36 L (4.70-6.10) M/uL Hgb 13.5 L (14.0-18.0) g/dl Hct 40.8 L (42.0-52.0) % Neut # (Auto) 8.78 H (1.40-6.50) K/uL [place]ton # (Auto) 0.84 H (0.11-0.59) K/uL Creatinine 1.71 H (0.6-1.4) mg/dl Glucose 103 H (70-99(Fasting)) mg/dl Magnesium < 0.5 L* (1.7-2.4) mg/dl Diagnostic Findings XR chest 2V PA/lateral HISTORY: weakness, back pain, nausea COMPARISON: Chest 04/03/2010. FINDINGS: The lungs are clear. Cardiac silhouette is normal in size. No pleural effusions. No pneumothorax. Degenerative changes within the right shoulder and lower thoracic spine. Calcified granuloma seen within the base of the left lower lobe. IMPRESSION: No acute process. THORACIC SPINE 3 VIEWS HISTORY: low thoracic back pain COMPARISON: Chest 05/24/2009. FINDINGS: There is no fracture. No subluxation. Moderate to severe disc space narrowing within the lower thoracic spine. Mild disc space narrowing within the upper to mid thoracic spine IMPRESSION: No fracture or subluxation within the thoracic spine. Degenerative changes most pronounced within the lower thoracic spine. Medications Administered ER medications given: Normal saline 500 mL bolus Magnesium sulfate 1 g IV ECG Rate (beats per minute): 65 Rhythm: normal sinus Findings: + other (T wave flattening widespread) Comparison ECG Date: from (April 03, 2010) Change: the following changes noted (T wave flattening anteriorly) Code Status & VTE Plan Code Status Full VTE Prophylaxis Plan VTE Prophylaxis will be ordered: Yes PG Care Time/CCT Total # of Minutes Spent Total Time Spent with Patient: Total time spent is greater than 50% in coordination of care (as documented) at patient's floor/unit and/or counseling patient: Coding Level of Care Code 65899 INT INP/OBS CARE Diagnoses Hypomagnesemia E83.42 Gastroesophageal reflux disease without esophagitis K21.9 Esophagitis presence: without esophagitis Type 2 diabetes mellitus with chronic kidney disease, without long-term current use of insulin, unspecified CKD stage E11.22 Chronic kidney disease stage: unspecified stage Diabetes mellitus complication detail: with chronic kidney disease Diabetes mellitus complication status: with kidney complications Diabetes mellitus terminologist insulin use: without terminologist use Diabetes mellitus type: type 2 (2) Gastroesophageal reflux disease Esophagitis presence: without esophagitis Qualified Code(s): K21.9 - Gastro- esophageal reflux disease without esophagitis (3) Diabetes mellitus Chronic kidney disease stage: unspecified stage Diabetes mellitus complication detail: with chronic kidney disease Diabetes mellitus complication status: with kidney complications Diabetes mellitus terminologist insulin use: without terminologist use Diabetes mellitus type: type 2 Qualified Code(s): E11.22 - Type 2 diabetes mellitus with diabetic chronic kidney disease
[2024-02-01] MEDS: MAGNESIUM SULFATE / D5W 1 GM/100 ML BAG IV SCH ×2 (15:50→20:41)
[2024-02-01] MEDS: POTASSIUM CHLORIDE CRTAB 20 MEQ TABCR PO STA (16:34)
[2024-02-01] MEDS: MAGNESIUM SULFATE / D5W 1 GM/100 ML BAG IV STA (18:22)
[2024-02-01] MEDS ORDERED: GLUCOSE 10 TAB/TUBE PO PRN (20:10)
[2024-02-01] MEDS ORDERED: PHARMACY GLYCEMIC MGMT CONSULT PRN (20:10)
[2024-02-01] MEDS ORDERED: DEXTROSE 50% 50 ML SYRINGE IV PRN (20:10)
[2024-02-01] MEDS ORDERED: GLUCOSE 40% GEL 15 GM TUBE PO PRN (20:10)
[2024-02-01] MEDS ORDERED: CARBOHYDRATES FOR HYPOGLYCEMIA PO PRN (20:10)
[2024-02-01] MEDS ORDERED: GLUCAGON FOR INJ 1 MG VIAL SQ PRN (20:10)
[2024-02-01] MEDS ORDERED: ENALAPRIL MALEATE 10 MG TAB PO SCH (21:00)
[2024-02-01] MEDS ORDERED: MAGNESIUM CHLORIDE W/CALCIUM 64MG DELAYED REL TAB PO SCH (21:00)
[2024-02-01] MEDS: HEPARIN SOD 5,000 UNIT/0.5 ML VIAL SQ SCH (21:12)
[2024-02-01] MEDS: INSULIN ASPART PER UNIT CHARGE SC SCH (21:20)
[2024-02-01] MEDS: VITAMIN B COMPLEX TAB PO SCH (21:21)
[2024-02-01 21:25] LABS: BUN Creatinine Ratio 12.5 (10-20); Calcium 8.2 mg/dl (8.6-10.3); Creatinine Clr Calc Pharmacy 47.4 ml/min; Est GFR (African American) 52.3 ml/min; Est GFR (Non-African American) 45.1 ml/min; Magnesium 1.5 mg/dl (1.7-2.4); Phosphorus 3.4 mg/dl (2.5-4.9); Potassium 3.8 mmol/L (3.5-5.1)
--- NOTE | 2024-02-01 23:15 | Electrocardiogram Report ---
Test Reason : Blood Pressure : / mmHG Vent. Rate : 065 BPM Atrial Rate : 065 BPM P-R Int : 186 ms QRS Dur : 092 ms QT Int : 364 ms P-R-T Axes : 056 025 048 degrees QTc Int : 378 ms Normal sinus rhythm Low voltage QRS Borderline ECG When compared with ECG of 03-APR-2010 19:51, QRS duration has decreased T wave amplitude has decreased in Anterior leads Confirmed by Yaya Kahn ([id number]) on 02/01/2024 11:15:16 PM Referred By: Confirmed By:Yaya Kahn
[2024-02-02 02:04] LABS: Appearance Urine Clear (Clear); Bilirubin Urine Negative (Negative); Blood Urine Negative (Negative); Color Urine Dark Yellow; Glucose Urine UA Negative (Negative); Ketones Urine Trace (Negative); Leukocyte Esterase Urine Negative (Negative); Nitrite Urine Negative (Negative); Protein Urine Negative (Negative); Specific Gravity Urine 1.018 (1.000-1.030); Urobilinogen Urine Negative (Negative)
[2024-02-02 03:27] LABS: BUN Creatinine Ratio 12.8 (10-20); Calcium 8.2 mg/dl (8.6-10.3); Creatinine Clr Calc Pharmacy 52.4 ml/min; Est GFR (Non-African American) 46.6 ml/min; Magnesium 1.6 mg/dl (1.7-2.4); Potassium 3.5 mmol/L (3.5-5.1)
[2024-02-02] MEDS ORDERED: POTASSIUM CHLORIDE / WTR 10 MEQ/100 ML PLCT IV SCH (04:00)
[2024-02-02] MEDS: POTASSIUM CHLORIDE CRTAB 20 MEQ TABCR PO STA (04:18)
[2024-02-02] MEDS: MAGNESIUM SULFATE / D5W 1 GM/100 ML BAG IV SCH (04:18)
[2024-02-02 07:24] LABS: BUN Creatinine Ratio 11.4 (10-20); Calcium 7.8 mg/dl (8.6-10.3); Est GFR (African American) 53.6 ml/min; Est GFR (Non-African American) 46.2 ml/min; Magnesium 1.9 mg/dl (1.7-2.4); Phosphorus 3.2 mg/dl (2.5-4.9); Potassium 3.9 mmol/L (3.5-5.1)
--- NOTE | 2024-02-02 08:33 | Nephrology Consultation ---
Date of Consultation February 02, 2024 Assessment & Plan (1) Hypomagnesemia: Improving with IV replacement. I have ordered magnesium chloride BID starting this afternoon. IV infusion to complete this morning. Henri received spironolactone this morning but I would consider switching to amiloride in the future. Consider dietary consult to discuss magnesium rich diet options. I suspect his PPI, diarrhea, and chronic metformin use are contributing to hypomagnesemia. Continue once daily PPI and wean as tolerated. May benefit from gastroenterology follow up regarding GI symptoms including persistent GERD and dyspepsia. (2) Diabetes mellitus with diabetic nephropathy: Remains on metformin. (3) Proteinuria: Recent evaluation reviewed. Close outpatient follow up in the nephrology clinic p discharge. Continue ramipril as Rx. (4) Diarrhea: Improving. Henri feels this is related to PO magnesium. We are trying to adjust therapy to something better tolerated. He was also advised that PRN Imodium may be considered. Ultimately, he may benefit from follow up with gastroenterology. (5) Diabetes mellitus: (6) Gastroesophageal reflux disease: Remains on pantoprazole 40 mg daily. History of Present Illness Reason for Consultation: hypomagnesemia Requesting Physician: Isaak Mccarthy Attending Physician: Isaak Mccarthy History of Present Illness Henri Granado is a 73 year-old male with diabetes mellitus, hypertension, obesity, GERD, OA/DJD, hypomagnesemia, and CKD. 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 Henri has followed with me in the clinic for several years. I recently saw Henri in the clinic ~1 week ago. Prior to this Henri's last clinic visit was in December 2022. Baseline creatinine ~1.5-1.9 mg/dL. MACR 12 mcg/mg. Kidney function has been stable for years. Serum magnesium had seemingly been controlled for at least 1 year. Henri gained weight over the holidays. He changed his diet in mid-September but developed worsening of chronic diarrhea around this time. He presented to the clinic last month with ongoing diarrhea and associated volume depletion. He stopped taking his OTC magnesium supplement and this helped with his GI symptoms. He did not endorse melena or hematochezia. He held ramipril intermittently due to low BP. He was not taking any furosemide. Henri was supplementing with Super Magnesium (Mg lactate + citrat e combination) for hypomagnesemia. Following the clinic visit, I advised that he stop his Super Magnesium supplement and try Magnesium Chloride. We also attempted to wean pantoprazole from 40 mg twice daily to once daily. He has not tolerated weaning his PPI in the past. He has a longstanding history of GERD. EGD was performed several years ago per Henri. He reports H pylori which was treated. Henri has been treated for hypertension since he was in his 40's. He required more than 1 agent for many years. In 2012, his PCP was concerned about an element of aldosteronism and Aldactone was added with reportedly good response. There was no confirmation of a diagnosis of hyperaldosteronism based on labs. Henri has a longstanding history of hypomagnesemia for many years. He has been treated with IV magnesium in the past. He developed diarrhea with magnesium oxide. He switched over to a complex magnesium supplement (Super Mag) and was tolerating this medication well for at least ~1 year. He does not consume alcohol. He has a history of a slight M spike on SPEP. On follow up testing, there was no change or development of progressive globulinemia. Immunofixation demonstrated a small band in IgM lambda in the past but more recently IgM K with very slight increase in alpha globulins on SPEP. UPEP by history showed non selective proteinuria. He has not had evidence of RTA otherwise. There is no other clinical evidence of paraproteinemia and no significant change overall in proteinuria. OA/DJD major limiting factor to activity tolerance. Henri states that he tolerated magnesium chloride for 3 days but on the 4th day he developed diarrhea with multiple loose watery bowel movements after taking the medication. He describes some increased abdominal bloating after reducing his PPI. He was experiencing mild nausea and some reflux while in bed this morning. He continues to restrict his calories and reports that he feels full after very small meals. He is not experiencing any diarrhea at this time. Some generalized weakness and shakiness persist but he is feeling significantly better than he did yesterday. Allergies Allergy/AdvReac Type Severity Reaction Status Date / Time No Known Allergies Allergy Verified 02/01/24 15:20 Home Medications Medication Instructions Recorded Confirmed Type blood sugar diagnostic (OneEyeAntTouch #10 ea 06/24/19 01/27/24 History Ultra Blue Test Strip) cholecalciferol (vitamin D3) 25 3,000 units PO QDL 06/24/19 02/01/24 History mcg (1,000 unit) capsule lancets 33 gauge (TaylaToayana Delalcides #100 ea 06/24/19 01/27/24 History Lancets) furosemide 20 mg tablet 20 mg PO DAILY PRN edema #90 tabs 07/16/22 02/01/24 Rx flaxseed 1,000 mg capsule 1,000 mg PO QDL 05/28/23 02/01/24 History krill 500 mg-omega-3 150 mg-dha 45 1 cap PO QDL 05/28/23 02/01/24 History mg-epa 75 [id number] capsule (krill oil) vitamin B complex 1 cap PO QPM 05/28/23 02/01/24 History ramipril 10 mg capsule 10 mg PO BID #180 caps 07/02/23 02/01/24 Rx diclofenac sodium 1 % topical gel 4 g topical QID PRN Joint Pain 90 07/04/23 02/01/24 Rx days #300 grams glimepiride 1 mg tablet 1 mg PO BID #180 tabs 01/19/24 02/01/24 Rx magnesium chloride 64 mg 64 mg PO BID #180 tabs 01/26/24 02/01/24 Rx (magnesium chloride) tablet,delayed release pantoprazole 40 mg tablet,delayed 40 mg PO DAILY #90 tabs 01/26/24 02/01/24 Rx release metformin 1,000 mg tablet 1,000 mg PO DAILY #90 tabs 01/27/24 02/01/24 Rx atenolol 50 mg tablet 25 mg PO QAM 02/01/24 02/01/24 History atorvastatin 20 mg tablet 20 mg PO DAILY 02/01/24 02/01/24 History atorvastatin 40 mg tablet 40 mg PO DAILY 02/01/24 02/01/24 History spironolactone 50 mg tablet 50 mg PO QDL 02/01/24 02/01/24 History Patient History Medical History Hypomagnesemia Osteoarthritis Diabetes mellitus Gastroesophageal reflux disease Hypercholesterolemia Hypertension Obesity Proteinuria Surgical History No significant past surgical history Family History Father Congestive heart failure Mother Coronary heart disease Myocardial infarction Type 2 diabetes mellitus Brother Essential hypertension Sister Myocardial infarction Denies family history of Ovarian cancer Prostate cancer Kidney disease Breast cancer Colorectal cancer Social History Smoking Status: Former smoker Tobacco Type: Cigarettes Age Started Using Tobacco: 21; Second Hand Exposure: No; Do You Dip or Chew Tobacco: No; Tobacco Cessation Education Requested by Patient: No Hx Alcohol Use: No Hx Substance Use: No Preferred Language: Chadian Communication Ability: Effective Visual Impairment: No Limitations Hearing Ability: Normal Bandmill Operator Required: No Beliefs That Will Affect Care: None marital status: Single Current Living Situation: Family current occupational status: retired Other Information That Helps Us Care for You: No Feels Safe at Home: Yes Childhood Exposure to Second-Hand Smoke: No Diet: regular caffeine: Yes during the past year weight has: remained stable Dental Care, Regularly: Yes Physical Activity Frequency: Does not Exercise Seatbelt Use: always Sunscreen Use: No Assistive Devices: Cane Review of Systems Review of Systems: All systems reviewed & are unremarkable except as noted in HPI & below Gastrointestinal: + heartburn, + nausea and + diarrhea/loo se stools Physical Exam Constitutional: well developed; no acute distress Eyes: no scleral abnormality and no corneal abnormality Neck: normal visual inspection and trachea midline Respiratory: normal respiratory effort Auscultation: lungs clear to auscultation bilaterally Cardiovascular: Rate/Rhythm: regular rate Heart Sounds: normal S1 and normal S2 Extremities: no edema Musculoskeletal: Extremities: no cyanosis and no clubbing Skin: normal turgor; no lesions Neurologic: Motor/Sensory: no tremor and no asterixis Psychiatric: Orientation: alert and oriented x 3 Results & Data Vital Signs (Past 12 Hours) Vital Signs Temp Pulse Pulse Pulse Resp BP Pulse Ox 02/02/24 07:44 36.7 C 89 19 139/85 93 02/02/24 02:43 36.6 C 81 18 143/79 H 95 02/01/24 22:55 36.5 C 70 18 156/83 H 95 02/01/24 22:00 65 02/01/24 21:58 36.9 C 75 16 172/91 H 96 O2 Del Method 02/02/24 07:44 Room Air 02/02/24 02:43 Room Air 02/01/24 22:55 Room Air 02/01/24 22:00 02/01/24 21:58 Room Air Laboratory Results Laboratory Results - last 24 hr 02/01/24 02/01/24 02/01/24 14:01 20:47 21:18 WBC 11.84 H RBC 4.36 L Hgb 13.5 L Hct 40.8 L MCV 93.6 MCH 31.0 MCHC 33.1 RDW Std Deviation 44.2 RDW Coeff of Jonathan 12.9 Plt Count 210 MPV 10.4 Immature Gran % (Auto) 0.3 Neut % (Auto) 74.2 Lymph % (Auto) 15.7 [place] % (Auto) 7.1 Eos % (Auto) 2.2 Baso % (Auto) 0.5 Neut # (Auto) 8.78 H Lymph # (Auto) 1.86 [place] # (Auto) 0.84 H Eos # (Auto) 0.26 Baso # (Auto) 0.06 Immature Gran # (Auto) 0.04 Sodium 140 140 Potassium 3.6 3.8 Chloride 107 109 H Carbon Dioxide 22 20 L Anion Gap 11 11 BUN 20 19 Creatinine 1.71 H 1.52 H Est Cr Clr Drug Dosing 42.1 47.4 Est GFR ( Amer) 45.4 52.3 Est GFR (Non-Af Amer) 39.1 45.1 BUN/Creatinine Ratio 11.7 12.5 Glucose 103 H 105 H POC Glucose 107 H Calcium 8.9 8.2 L Phosphorus 3.4 Magnesium < 0.5 L* 1.5 L Total Bilirubin 0.4 AST 18 ALT 16 Alkaline Phosphatase 74 Troponin I High Sens 10.8 Total Protein 7.0 Albumin 4.3 Globulin 2.7 Albumin/Globulin Ratio 1.6 Urine Color Urine Appearance Urine pH Ur Specific [place] Urine Protein Urine Glucose (UA) Urine Ketones Urine Blood Urine Nitrite Urine Bilirubin Urine Urobilinogen Ur Leukocyte Esterase 02/02/24 02/02/24 02/02/24 01:50 02:41 06:31 WBC RBC Hgb Hct MCV MCH MCHC RDW Std Deviation RDW Coeff of Jonathan Plt Count MPV Immature Gran % (Auto) Neut % (Auto) Lymph % (Auto) [place] % (Auto) Eos % (Auto) Baso % (Auto) Neut # (Auto) Lymph # (Auto) [place] # (Auto) Eos # (Auto) Baso # (Auto) Immature Gran # (Auto) Sodium 140 140 Potassium 3.5 3.9 Chloride 111 H 109 H Carbon Dioxide 20 L 22 Anion Gap 9 9 BUN 19 17 Creatinine 1.48 H 1.49 H Est Cr Clr Drug Dosing 52.4 52.0 Est GFR ( Amer) 54.0 53.6 Est GFR (Non-Af Amer) 46.6 46.2 BUN/Creatinine Ratio 12.8 11.4 Glucose 105 H 102 H POC Glucose Calcium 8.2 L 7.8 L Phosphorus 3.0 3.2 Magnesium 1.6 L 1.9 Total Bilirubin AST ALT Alkaline Phosphatase Troponin I High Sens Total Protein Albumin Globulin Albumin/Globulin Ratio Urine Color Dark Yellow Urine Appearance Clear Urine pH 5.0 Ur Specific [place] 1.018 Urine Protein Negative Urine Glucose (UA) Negative Urine Ketones Trace H Urine Blood Negative Urine Nitrite Negative Urine Bilirubin Negative Urine Urobilinogen Negative Ur Leukocyte Esterase Negative 02/02/24 07:12 WBC RBC Hgb Hct MCV MCH MCHC RDW Std Deviation RDW Coeff of Jonathan Plt Count MPV Immature Gran % (Auto) Neut % (Auto) Lymph % (Auto) [place] % (Auto) Eos % (Auto) Baso % (Auto) Neut # (Auto) Lymph # (Auto) [place] # (Auto) Eos # (Auto) Baso # (Auto) Immature Gran # (Auto) Sodium Potassium Chloride Carbon Dioxide Anion Gap BUN Creatinine Est Cr Clr Drug Dosing Est GFR ( Amer) Est GFR (Non-Af Amer) BUN/Creatinine Ratio Glucose POC Glucose 97 Calcium Phosphorus Magnesium Total Bilirubin AST ALT Alkaline Phosphatase Troponin I High Sens Total Protein Albumin Globulin Albumin/Globulin Ratio Urine Color Urine Appearance Urine pH Ur Specific [place] Urine Protein Urine Glucose (UA) Urine Ketones Urine Blood Urine Nitrite Urine Bilirubin Urine Urobilinogen Ur Leukocyte Esterase Diagnostic Findings XR chest 2V PA/lateral COMPARISON: Chest 04/03/2010. FINDINGS: The lungs are clear. Cardiac silhouette is normal in size. No pleural effusions. No pneumothorax. Degenerative changes within the right shoulder and lower thoracic spine. Calcified granuloma seen within the base of the left lower lobe. IMPRESSION: No acute process. ECG Additional Comments: Vent. Rate : 065 BPM Atrial Rate : 065 BPM P-R Int : 186 ms QRS Dur : 092 ms QT Int : 364 ms P-R-T Axes : 056 025 048 degrees QTc Int : 378 ms Normal sinus rhythm Low voltage QRS PG Care Time/CCT Total # of Minutes Spent Total Time Spent with Patient: Total time spent is greater than 50% in coordination of care (as documented) at patient's floor/unit and/or counseling patient: Coding Level of Care Code 81882 IN/OBS CONSULT LVL 4,60M Diagnoses Hypomagnesemia E83.42 Type 2 diabetes mellitus with diabetic nephropathy, without long-term current use of insulin E11.21 Diabetes mellitus general milling superintendent insulin use: without detention use Diabetes mellitus type: type 2 Proteinuria R80.9 Diarrhea R19.7 Type 2 diabetes mellitus with chronic kidney disease, without long-term current use of insulin, unspecified CKD stage E11.22 Chronic kidney disease stage: unspecified stage Diabetes mellitus complication detail: with chronic kidney disease Diabetes mellitus complication status: with kidney complications Diabetes mellitus general milling superintendent insulin use: without detention use Diabetes mellitus type: type 2 Gastroesophageal reflux disease without esophagitis K21.9 Esophagitis presence: without esophagitis (2) Diabetes mellitus with diabetic nephropathy Diabetes mellitus general milling superintendent insulin use: without detention use Diabetes mellitus type: type 2 Qualified Code(s): E11.21 - Type 2 diabetes mellitus with diabetic nephropathy (5) Diabetes mellitus Chronic kidney disease stage: unspecified stage Diabetes mellitus complication detail: with chronic kidney disease Diabetes mellitus complication status: with kidney complications Diabetes mellitus detention insulin use: without detention use Diabetes mellitus type: type 2 Qualified Code(s): E11.22 - Type 2 diabetes mellitus with diabetic chronic kidney disease (6) Gastroesophageal reflux disease Esophagitis presence: without esophagitis Qualified Code(s): K21.9 - Gastro- esophageal reflux disease without esophagitis
[2024-02-02] MEDS: ATORVASTATIN 40 MG TAB PO SCH (09:24)
[2024-02-02] MEDS: PANTOprazole 40 MG TAB PO SCH (09:24)
[2024-02-02] MEDS: ATENOLOL 25 MG TABLET PO SCH (09:24)
[2024-02-02] MEDS: ENALAPRIL MALEATE 10 MG TAB PO SCH (09:24)
[2024-02-02] MEDS: ATORVASTATIN 20 MG TAB PO SCH (09:24)
[2024-02-02] MEDS: SPIRONOLACTONE 25 MG TAB PO SCH (12:05)
--- NOTE | 2024-02-02 13:58 | Pharmacy Report ---
Pharmacy Glycemic Short Note 2 - Date of Service February 02, 2024 - Glycemic Short BSG Results (Last 24 hours): 02/01/24 02/01/24 02/01/24 14:01 20:47 21:18 Glucose 103 H 105 H POC Glucose 107 H 02/02/24 02/02/24 02/02/24 02:41 06:31 07:12 Glucose 105 H 102 H POC Glucose 97 02/02/24 02/02/24 09:50 12:07 Glucose POC Glucose 172 H 120 H OUTPATIENT ANTIDIABETIC REGIMEN: * metformin 1000mg PO daily * glimepiride 1mg PO BID * A1c= 5.5% 12/2023 per Hospitalist documentation ASSESSMENT: * Type 2 diabetic admitted for weakness, shakiness, hypomagnesemia. * Fasting BSG at goal this AM with no basal on board. Will continue to withhold basal and monitor fasting trend. * Post-prandial BSGs well controlled with current Novolog CR/CF (equivalent to "mild-moderate" stress level wt-based dosing) PLAN FOR INPATIENT GLYCEMIC CONTROL: * Hold outpatient oral diabetes medications * Basal insulin * none at this time * Bolus insulin * NovoLog per scale ACHS or Q6hrs while NPO * Goal Range: Low 110 mg/dL - High 140 mg/dL * Correction Factor: 25 mg/dL/unit * Nutritional / Prandial insulin per carb ratio of 1 unit per 10 grams CHO consumed
[2024-02-02 16:22] LABS: BUN Creatinine Ratio 11.4 (10-20); Calcium 8.4 mg/dl (8.6-10.3); Est GFR (African American) 53.6 ml/min; Est GFR (Non-African American) 46.2 ml/min; Phosphorus 2.5 mg/dl (2.5-4.9); Potassium 4.4 mmol/L (3.5-5.1)
[2024-02-02] MEDS: MAGNESIUM CHLORIDE W/CALCIUM 64MG DELAYED REL TAB PO SCH (21:53)
--- NOTE | 2024-02-02 23:01 | Hospitalist Progress Note ---
Date of Service February 02, 2024 Assessment & Plan (1) Hypomagnesemia: Plan: Chronically low (on PPI) but acutely worse after stopping oral magnesium supplementation Mg sulfate 2g over 1 hour. Then 1g over 1 hour. Then 3g over 6 hours. Stop if bradycardic or he becomes short of breath and remeasure Mg level. Consult nephrology Magnesium appears better controlled. will recheck magenesium to ensure stability. will consider switching metformin 500 mg PO BID ER. (2) Gastroesophageal reflux disease: Plan: Continue pantoprazole, recently decreased to once daily (3) Diabetes mellitus: Plan: HbA1C 5.5 in December, no need to repeat Hold metformin, glyburide Novolog: --Goal BSG Range: Low 110 mg/dL, High 140 mg/dL --Correction Factor: 45 mg/dL/unit --Carbohydrate ratio = 15 g/unit --BSGs ACHS if eating, q6h if npo Consult pharmacy for ongoing glycemic control, may need basal tomorrow as his current morning medications are metabolized/excreted Plan HTN/hypercholesterolemia - continue his routine home meds VTE Prophylaxis - heparin 5000 units SQ BID Diet - T2DM Disposition - admit to PCU Admission and Anticipated Discharge Date Admission Date: February 01, 2024 Subjective Patient reports no new symptoms. Patient stae he is feeling better but not quite at baseline. He is concerned about his magnesium. Review of Systems Review of Systems: All systems reviewed & are unremarkable except as noted in HPI & below Physical Exam Physical Exam: Constitutional: WD/WN, vitals as above Eyes: PERRL, conjunctivae normal, anicteric sclerae no nystagmus ENMT: external ear and nose normal, oropharynx normal Respiratory: normal respiratory effort, lungs clear to auscultation Cardiovascular: RRR, no murmur, no edema Gastrointestinal (Abdomen): normal bowel sounds, soft, nontender, no hepatosplenomegaly Skin: no rashes, warm and dry Psychiatric: A+Ox3, euthymic affect Genitourinary: no CVA tenderness Results & Data Results & Data Vital Signs (Past 12 Hours) Vital Signs Temp Pulse Resp BP Pulse Ox O2 Del Method 02/02/24 19:28 37.2 C 67 20 140/80 94 Room Air 02/02/24 13:58 37.3 C 64 20 149/89 H 95 Room Air PG Care Time/CCT Total # of Minutes Spent Total Time Spent with Patient: Total time spent is greater than 50% in coordination of care (as documented) at patient's floor/unit and/or counseling patient: Coding Level of Care Code 19119 SUB INP/OBS CARE 350MIN Diagnoses Hypomagnesemia E83.42 Gastroesophageal reflux disease without esophagitis K21.9 Esophagitis presence: without esophagitis Type 2 diabetes mellitus with chronic kidney disease, without long-term current use of insulin, unspecified CKD stage E11.22 Chronic kidney disease stage: unspecified stage Diabetes mellitus complication detail: with chronic kidney disease Diabetes mellitus complication status: with kidney complications Diabetes mellitus nursing home insulin use: without intermediate manager use Diabetes mellitus type: type 2 Time Spent (min) 50 (2) Gastroesophageal reflux disease Esophagitis presence: without esophagitis Qualified Code(s): K21.9 - Gastro- esophageal reflux disease without esophagitis (3) Diabetes mellitus Chronic kidney disease stage: unspecified stage Diabetes mellitus complication detail: with chronic kidney disease Diabetes mellitus complication status: with kidney complications Diabetes mellitus intermediate manager insulin use: without intermediate manager use Diabetes mellitus type: type 2 Qualified Code(s): E11.22 - Type 2 diabetes mellitus with diabetic chronic kidney disease
[2024-02-03] MEDS ORDERED: busPIRone 5 MG TAB PO SCH
[2024-02-03 07:11] LABS: Hematocrit (blood only) 32.9 % (42.0-52.0); Hemoglobin 10.9 g/dl (14.0-18.0); Mean Corpuscular Hemoglobin 30.8 pg (25.0-34.0); Mean Corpuscular Hgb Conc 33.1 g/dL (32.0-36.0); Mean Corpuscular Volume 92.9 fL (80.0-100.0); Mean Platelet Volume 10.4 fL (9.4-12.4); Platelet Count 155 K/uL (130-400); RDW Coefficient of Variation 12.8 % (11.5-14.5); RDW Standard Deviation 43.8 fL (36.4-46.3); Red Blood Count 3.54 M/uL (4.70-6.10); White Blood Count 6.25 K/ul (4.8-10.8)
[2024-02-03 07:53] LABS: Albumin Level 3.4 gm/dl (3.4-5.0); BUN Creatinine Ratio 12.8 (10-20); Calcium 7.8 mg/dl (8.6-10.3); Creatinine Clr Calc Pharmacy 52.5 ml/min; Est GFR (Non-African American) 46.6 ml/min; Magnesium 1.7 mg/dl (1.7-2.4); Potassium 4.2 mmol/L (3.5-5.1)
[2024-02-03] MEDS: LOPERAMIDE HCL 2 MG CAP PO PRN (08:48)
--- NOTE | 2024-02-03 10:00 | Nephrology Progress Note ---
Date of Service February 03, 2024 Assessment & Plan (1) Hypomagnesemia: Plan: Magnesium chloride 64 mg BID. Recheck magnesium this afternoon. Spot urine sample pending to assess for renal wasting. I suspect hypomagnesemia was related to GI losses and poor absorption (metformin and PPI contributing). PPI is being weaned as tolerated. Oral replacement restarted. No significant GI symptoms at this time. Imodium available PRN. Henri remains on spironolactone which hopefully will help. We discussed monitoring blood magnesium weekly post discharge and supplementing with IV replacement PRN. (2) Diabetes mellitus with diabetic nephropathy: Plan: Remains on metformin. (3) Proteinuria: Plan: No evidence of monoclonal/Bence Fox protein on UPEP. Close outpatient follow up in the nephrology clinic p discharge. Continue ramipril as Rx. (4) Diarrhea: Plan: Improved. Henri suspects that this was related to PO magnesium. We are trying to adjust therapy to something better tolerated. Ultimately, follow up with gastroenterology may be beneficial. (5) Gastroesophageal reflux disease: Plan: Remains on pantoprazole 40 mg daily. Admission and Anticipated Discharge Date Admission Date: February 01, 2024 Subjective Henri was resting comfortably in bed this morning. He reports episodes of feeling shaky and anxious overnight. There was an episode associated with elevated blood pressure which lasted ~1 hour. Henri felt like he was experiencing a panic attack. He denies chest pains, palpitations, or headaches. The episode resolved spontaneously. He asked if an anxiolytic could help in the future. He remains concerned about his health and continues to report anxiety. He is comfortable in the hospital and states that he is not in a smith to return home. Otherwise, he feels well. He noted some fullness or fluid retention in his arms yesterday but this has resolved. He is not experiencing any fluid retention or edema at this time. He is not experiencing shortness of breath. He does not endorse significant GI symptoms. He denies significant reflux or dyspepsia. He is moving his bowels regularly ~1 x per day. He has not experienced diarrhea. Appetite is good. Education on magnesium rich diet was provided yesterday. Review of Systems Review of Systems: All systems reviewed & are unremarkable except as noted in HPI & below Physical Exam Constitutional: well developed; no acute distress Eyes: no scleral abnormality and no corneal abnormality Neck: normal visual inspection and trachea midline Respiratory: normal respiratory effort Auscultation: lungs clear to auscultation bilaterally Cardiovascular: Rate/Rhythm: regular rate Heart Sounds: normal S1 and normal S2 Extremities: no edema Musculoskeletal: Extremities: no cyanosis and no clubbing Skin: normal turgor; no lesions Neurologic: Motor/Sensory: no tremor and no asterixis Psychiatric: Orientation: alert and oriented x 3 Results & Data Vital Signs (Past 12 Hours) Vital Signs Temp Pulse Pulse Resp BP Pulse Ox O2 Del Method 02/03/24 07:18 36.8 C 65 18 138/85 95 Room Air 02/03/24 03:01 36.9 C 76 20 157/89 H 95 Room Air 02/03/24 00:59 64 02/02/24 23:26 36.7 C 62 20 125/69 95 Room Air Laboratory Results Laboratory Results - last 24 hr 02/02/24 02/02/24 02/02/24 12:07 15:39 16:08 WBC RBC Hgb Hct MCV MCH MCHC RDW Std Deviation RDW Coeff of Jonathan Plt Count MPV Sodium 138 Potassium 4.4 Chloride 111 H Carbon Dioxide 19 L Anion Gap 8 BUN 17 Creatinine 1.49 H Est Cr Clr Drug Dosing 52.0 Est GFR ( Amer) 53.6 Est GFR (Non-Af Amer) 46.2 BUN/Creatinine Ratio 11.4 Glucose 126 H POC Glucose 120 H 112 H Calcium 8.4 L Phosphorus 2.5 Magnesium 2.0 Albumin 02/02/24 02/03/24 02/03/24 20:40 06:12 07:19 WBC 6.25 RBC 3.54 L Hgb 10.9 L Hct 32.9 L MCV 92.9 MCH 30.8 MCHC 33.1 RDW Std Deviation 43.8 RDW Coeff of Jonathan 12.8 Plt Count 155 MPV 10.4 Sodium 140 Potassium 4.2 Chloride 111 H Carbon Dioxide 21 Anion Gap 8 BUN 19 Creatinine 1.48 H Est Cr Clr Drug Dosing 52.5 Est GFR ( Amer) 54.0 Est GFR (Non-Af Amer) 46.6 BUN/Creatinine Ratio 12.8 Glucose 93 POC Glucose 115 H 89 Calcium 7.8 L Phosphorus 3.0 Magnesium 1.7 Albumin 3.4 PG Care Time/CCT Total # of Minutes Spent Total Time Spent with Patient: Total time spent is greater than 50% in coordination of care (as documented) at patient's floor/unit and/or counseling patient: Coding Level of Care Code 63165 SUB INP/OBS CARE 350MIN Diagnoses Hypomagnesemia E83.42 Type 2 diabetes mellitus with diabetic nephropathy, without long-term current use of insulin E11.21 Diabetes mellitus type: type 2 Diabetes mellitus group home insulin use: without group home use Proteinuria R80.9 Diarrhea R19.7 Gastroesophageal reflux disease without esophagitis K21.9 Esophagitis presence: without esophagitis (2) Diabetes mellitus with diabetic nephropathy Diabetes mellitus type: type 2 Diabetes mellitus group home insulin use: without intermediate manager use Qualified Code(s): E11.21 - Type 2 diabetes mellitus with diabetic nephropathy (5) Gastroesophageal reflux disease Esophagitis presence: without esophagitis Qualified Code(s): K21.9 - Gastro- esophageal reflux disease without esophagitis
[2024-02-03] MEDS: MAGNESIUM SULFATE / D5W 1 GM/100 ML BAG IV SCH (10:27)
--- NOTE | 2024-02-03 12:05 | Discharge Summary ---
Date of Service February 03, 2024 Admission HPI Per Admitting Provider Henri Granado is a 73-year-old male who presents to the ER with generalized weakness, shakiness, back pain. He has a history of hypomagnesemia possibly secondary to PPI use (recently reduced from BID to daily dosing) with some diarrhea this week therefore he cut back on his magnesium as he felt this was contributing. No vision changes, no seizures or history of such, no palpitations. Symptoms started yesterday with generalized weakness, generally washed out, shaky, back pain above his ribs on both sides. His recent Mg level was 1.2 a week ago therefore with his current diarrhea he thought the Mg supplementation was not working. He switched to slow Mg a week ago but only took 3-4 tabs of this to avoid getting diarrhea. He feels his diarrhea has been worse since eating less and therefore the magnesium supplements having more of an effect since September. He was recently advised by his rn cvor to cut back to once a day pantoprazole from BID and he has not noticed worsening of his GERD although he has had 10-15 seconds of nausea intermittently the last few days. Principal Diagnosis hypomagnesemia Discharge Exam Constitutional: WD/WN, vitals as above Eyes: PERRL, conjunctivae normal, anicteric sclerae no nystagmus ENMT: external ear and nose normal, oropharynx normal Respiratory: normal respiratory effort, lungs clear to auscultation Cardiovascular: RRR, no murmur, no edema Gastrointestinal (Abdomen): normal bowel sounds, soft, nontender, no hepatosplenomegaly Skin: no rashes, warm and dry Psychiatric: A+Ox3, euthymic affect Genitourinary: no CVA tenderness Discharge Data Allergies Allergy/AdvReac Type Severity Reaction Status Date / Time No Known Allergies Allergy Verified 02/01/24 15:20 Consultations 02/01/24 16:07 ED Decision to Admit Stat 02/01/24 20:09 Consult Nephrology Routine Hospital Course (1) Hypomagnesemia: Chronically low (on PPI) but acutely worse after stopping oral magnesium supplementation Mg sulfate 2g over 1 hour. Then 1g over 1 hour. Then 3g over 6 hours. Consult nephrology Magnesium appears to be sustained now at a normal level over past 36 hours As there is concern that magnesium lisa be low due to diarrhea, will switch metformin 500 mg PO BID ER. Will also need to be checking magnesium as an outpatient once a week to ensure stability. (2) Gastroesophageal reflux disease: Continue pantoprazole, recently decreased to once daily (3) Diabetes mellitus: HbA1C 5.5 in December, no need to repeat will switch to metformin 500 mg PO BI ER. May consider even cutting down dose as A!C is at goal. Plan HTN/hypercholesterolemia - continue his routine home meds CKD 3 Creatinine 1.52, BUN 19, estimated GFR 45.1 Treatment: Daily PRP's, IVF, potassium replacement, magnesium replacement, calcium replacement, Total Time Total Time Spent Total Time Spent (In Minutes): 32 Discharge Plan Discharge Items Patient Disposition: Home - Self-Care Reason For Visit: HYPOMAGNESEMIA Discharge Diagnosis: hypomagnesemia Activity: Resume your previous activity Non-emergency contact: Primary Care Provider Call non-emergency contact if: you have any medication questions Follow-up/Referrals: Hai Khan III, CRNP [Primary Care Provider] - 02/11/24 9:20 am Diet: Carb Consistent or DM2 Ambulatory Orders: Basic Metabolic Panel (Routine) Timeframe: 1 Week Location: Determined by Patient Ordered By: Isaak Castro (Recollect EDLab Use Only) (Routine) Timeframe: 1 Week Location: Determined by Patient Ordered By: Isaak Arceo Attending Provider Instructions: recommend followup with PCP in 1 week Recommend checking bmp and magnesium every week for one month. Recommend you take buspar 1 tablet twice a day ongoing. This can be stopped without tapering. Pending Studies at Discharge: No Stand-Alone [facility] Sm[facility] Cess[facility] Medications and DC Order Prescriptions: New buspirone 5 mg Tablet 5 mg PO BID Qty: 60 0RF loperamide 2 mg Capsule 2 mg PO Q6 PRN (Reason: diarrhea) Qty: 45 0RF metformin 500 mg tablet extended release 24 hr 500 mg PO BID Qty: 60 0RF Rx Instructions: Take on a full stomach Continued furosemide 20 mg tablet 20 mg PO DAILY PRN (Reason: edema) Qty: 90 1RF ramipril 10 mg capsule 10 mg PO BID Qty: 180 3RF diclofenac sodium 1 % gel 4 g topical QID PRN (Reason: Joint Pain) 90 Days Qty: 300 1RF Rx Instructions: apply to single knee, ankle, foot; for foot includes sole/toes/top of foot glimepiride 1 mg tablet 1 mg PO BID Qty: 180 3RF (DME) OneTouch Ultra Blue Test Strip strip See Dose Instructions .ROUTE .MEDSUPPLY Qty: 10 Rx Instructions: As directed (DME) lancets [OneTouch Delica Lancets] 33 gauge misc See Dose Instructions .ROUTE .MEDSUPPLY Qty: 100 Rx Instructions: As directed cholecalciferol (vitamin D3) 1,000 unit capsule 3,000 units PO QDL Hold Instructions: Home Medication placed on hold at Doctor's office magnesium chloride 64 mg tablet,delayed release (DR/EC) 64 mg PO BID Qty: 180 3RF pantoprazole 40 mg tablet,delayed release (DR/EC) 40 mg PO DAILY Qty: 90 3RF vitamin B complex Capsule 1 cap PO QPM flaxseed 1,000 mg Capsule 1,000 mg PO QDL krill oil [id number] mg Capsule 1 cap PO QDL atorvastatin 40 mg tablet 40 mg PO DAILY Rx Instructions: TAKE 1 TABLET BY MOUTH DAILY TAKE ALONG WITH 20 MG TABLET FOR 60 MG DAILY atorvastatin 20 mg tablet 20 mg PO DAILY Rx Instructions: TAKE 1 TABLET BY MOUTH DAILY TAKE ALONG WITH 40 MG TABLET FOR 60 MG DAILY atenolol 50 mg tablet 25 mg PO QAM Rx Instructions: TAKE 1/2 TABLET BY MOUTH ONCE DAILY (qam) spironolactone 50 mg tablet 50 mg PO QDL Rx Instructions: TAKE 1 TABLET BY MOUTH DAILY (lunch) Discontinued metformin 1,000 mg tablet 1,000 mg PO DAILY Qty: 90 3RF Discharge Orders: Discharge Order (Routine); Ordered 02/03/24 Ordered By: Isaak Mccarthy Admission Data Admit Date/Time: 02/01/24 17:55 Attending Provider: Isaak Mccarthy Admit Provider: Nigel Barnhart Primary Care Provider: Hai Khan III Other Providers: Naga Mcgrath Other Interventions: Discharge Summary Assessment (RN) Last Done: 02/03/24 17:54 Coding Level of Care Code 87097 INP/OBS DISCH >30 MIN Diagnoses Hypomagnesemia E83.42 Gastroesophageal reflux disease without esophagitis K21.9 Esophagitis presence: without esophagitis Type 2 diabetes mellitus with chronic kidney disease, without long-term current use of insulin, unspecified CKD stage E11.22 Chronic kidney disease stage: unspecified stage Diabetes mellitus complication detail: with chronic kidney disease Diabetes mellitus complication status: with kidney complications Diabetes mellitus 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
[2024-02-03] MEDS ORDERED: Nursing to Pharmacy Communication SCH (18:15)
[2024-02-03] MEDS: busPIRone 5 MG TAB PO SCH (18:50)
[2024-02-05 20:24] LABS: Magnesium, Random Urine 109 mg/g creat (22-130)
== END 2024-02-03 18:55 | disposition home or self-care (01) | DRG 641 ==
LOC: ED 13:26 → EDINP 17:55 → SUATTDRO 17:55 → 2E 21:31

== ENCOUNTER 2024-02-10 19:16 | Observation (INO) ==
--- NOTE | 2024-02-10 19:33 | ED Triage Note ---
Date of Service February 10, 2024 Provider in Triage Author: Tank Walker A History of Present Illness This patient was briefly evaluated while in triage. An abbreviated physical exam was performed. This patient is a 73-year-old Male who presents to the ED for evaluation of low magnesium. Was admitted last week for low magnesium. Had outpatient labs through [facility] and it was 1.1 today. Physical Exam Limited Triage Exam: VITALS: Vitals are noted on the nurse's note and reviewed by myself. Vital signs stable. GENERAL: Well-developed, well-nourished, white male, who is in no acute distress and resting comfortably. Patient is cooperative with the examination. HEART: Regular rate and rhythm without murmurs gallops or rubs. LUNGS: Clear to auscultation bilaterally without wheezes, rales or rhonchi. No retractions or accessory muscle use. NEURO: Patient was alert and oriented to person place and time. CN II through XII grossly intact. Initial orders for labs and / or imaging were placed and patient was placed in the waiting area until a bed is available. Please see further documentation for the full ED course.
[2024-02-10 20:30] LABS: Basophils # (auto) 0.04 K/uL (0.00-0.20); Basophils % (auto) 0.4 %; Eosinophils # (auto) 0.23 K/uL (0.00-0.50); Eosinophils % (auto) 2.4 %; Immature Granulocytes # (auto) 0.04 K/uL (0.01-0.20); Immature Granulocytes % (auto) 0.4 %; Lymphocytes # (auto) 1.48 K/uL (1.20-3.40); Lymphocytes % (auto) 15.2 %; Mean Corpuscular Hgb Conc 33.3 g/dL (32.0-36.0); Mean Corpuscular Volume 93.1 fL (80.0-100.0); Monocytes # (auto) 0.83 K/uL (0.11-0.59); Monocytes % (auto) 8.5 %; Neutrophils % (auto) 73.1 %; Platelet Count 215 K/uL (130-400); RDW Coefficient of Variation 12.9 % (11.5-14.5); RDW Standard Deviation 43.7 fL (36.4-46.3); Red Blood Count 4.19 M/uL (4.70-6.10); White Blood Count 9.72 K/ul (4.8-10.8)
[2024-02-10 20:47] LABS: Albumin Globulin Ratio 1.4 (0.9-2); Albumin Level 4.1 gm/dl (3.4-5.0); BUN Creatinine Ratio 12.9 (10-20); Bilirubin,Total 0.6 mg/dl (0.2-1.0); Calcium 9.1 mg/dl (8.6-10.3); Creatinine Clr Calc Pharmacy 45.7 ml/min; Est GFR (African American) 45.4 ml/min; Est GFR (Non-African American) 39.1 ml/min; Globulin 2.9 gm/dl (2.5-4.0); Magnesium 1.1 mg/dl (1.7-2.4); Potassium 4.4 mmol/L (3.5-5.1)
[2024-02-10 20:52] LABS: Troponin I High Sensitivity 8.6 pg/ml (0-20)
[2024-02-10] MEDS: SODIUM CHLORIDE 0.9% 500 ML IV SCH (21:57)
[2024-02-10] MEDS: SODIUM CHLORIDE 0.9% 500 ML IV ONE (21:57)
[2024-02-10] MEDS: MAGNESIUM SULFATE / D5W 1 GM/100 ML BAG IV SCH (21:57)
--- NOTE | 2024-02-10 22:44 | History & Physical Report ---
Date of Service February 10, 2024 Assessment & Plan (1) Hypomagnesemia: Plan: -CBC was benign, slight rise in creatinine at 1.71, magnesium 1.1. -Patient was recently discharged from the hospital on 02/03/2024 for hypomagnesia. He saw nephrology which recommended magnesium chloride 45 mg twice daily as well as staying on spironolactone and to continue on pantoprazole 40 mg daily -Has been taking Imodium with his oral magnesium to reduce the episodes of diarrhea. Did have 3 episodes of diarrhea since discharge. -EKG showed normal sinus rhythm. -Will monitor on telemetry, nephrology consulted. -Will give 4 bags of magnesium IV, check magnesium, CBC, CMP, phosphorus in the a.m. (2) Gastroesophageal reflux disease: Plan: -Was on twice daily dosing pantoprazole. Currently 40 mg daily. -Will hold for the time being and reassess in the a.m. (3) Hypercholesterolemia: Plan: - continue home meds. (4) Hypertension: Plan: - Continue home meds. (5) Diabetes mellitus: Plan: - Patient's home regimen held on admission - Continue BSG checks, sliding-scale insulin, hypoglycemic protocol History of Present Illness Chief Complaint: Hypomagnesia Primary Care Provider: Hai Khan III, CRISTINA Henri Granado is a 73-year-old male who presents to the hospital for low magnesium. Patient was recently discharged from the hospital hypomagnesia. He had it checked today and was told to come into the emergency room. States that he is having tingling in his hands and legs and he feels weak. States that since he has been home he has been taking oral magnesium. With the oral magnesium he has also been taking Imodium and has only had approximately 3 episodes of diarrhea over the past week since being discharged. Denies any other symptoms. Denies any chest pain, abdominal pain, or palpitations. Allergies Allergy/AdvReac Type Severity Reaction Status Date / Time No Known Allergies Allergy Verified 02/01/24 15:20 Home Medications Medication Instructions Recorded Confirmed Type blood sugar diagnostic (Battery Medicsuch #10 ea 06/24/19 01/27/24 History Ultra Blue Test Strip) cholecalciferol (vitamin D3) 25 3,000 units PO QDL 06/24/19 02/10/24 History mcg (1,000 unit) capsule lancets 33 gauge (Jazmine Espinal #100 ea 06/24/19 01/27/24 History Lancets) furosemide 20 mg tablet 20 mg PO DAILY PRN edema #90 tabs 07/16/22 02/10/24 Rx flaxseed 1,000 mg capsule 1,000 mg PO QDL 05/28/23 02/10/24 History krill 500 mg-omega-3 150 mg-dha 45 1 cap PO QDL 05/28/23 02/10/24 History mg-epa 75 [id number] capsule (krill oil) vitamin B complex 1 cap PO QPM 05/28/23 02/10/24 History ramipril 10 mg capsule 10 mg PO BID #180 caps 07/02/23 02/10/24 Rx diclofenac sodium 1 % topical gel 4 g topical QID PRN Joint Pain 90 07/04/23 02/10/24 Rx days #300 grams glimepiride 1 mg tablet 1 mg PO BID #180 tabs 01/19/24 02/10/24 Rx atenolol 50 mg tablet 25 mg PO QAM 02/01/24 02/10/24 History atorvastatin 20 mg tablet 20 mg PO QDL 02/01/24 02/10/24 History atorvastatin 40 mg tablet 40 mg PO QDL 02/01/24 02/10/24 History loperamide 2 mg capsule 2 mg PO Q6 PRN diarrhea #45 caps 02/03/24 02/10/24 Rx metformin 500 mg tablet,extended 500 mg PO BID #60 tabs 02/03/24 02/10/24 Rx release 24 hr pantoprazole 40 mg tablet,delayed 40 mg PO QAM 02/10/24 02/10/24 History release amiloride 5 mg tablet 5 mg PO DAILY #30 tabs 02/11/24 Rx magnesium L-lactate 84 mg 84 mg PO BID #60 tabs 02/11/24 Rx tablet,extended release Past Med/Surg History Problem List CKD (chronic kidney disease) (Acute) Diarrhea (Acute) Weakness (Acute) Diabetes mellitus with diabetic nephropathy Hypomagnesemia (Acute) Osteoarthritis (Chronic) Proteinuria (Chronic) Obesity (Chronic) Hypertension (Chronic) Hypercholesterolemia (Chronic) Gastroesophageal reflux disease (Chronic) Diabetes mellitus (Chronic) Surgical History No significant past surgical history Family History Father Congestive heart failure Mother Coronary heart disease Myocardial infarction Type 2 diabetes mellitus Brother Essential hypertension Sister Myocardial infarction Denies family history of Ovarian cancer Prostate cancer Kidney disease Breast cancer Colorectal cancer Social History Smoking Status: Former smoker Tobacco Type: Cigarettes Age Started Using Tobacco: 21; Second Hand Exposure: No; Do You Dip or Chew Tobacco: No; Hx Alcohol Use: No Hx Substance Use: No Preferred Language: Qatari Communication Ability: Effective Visual Impairment: No Limitations Hearing Ability: Normal Tool Shaper Setup Operator Required: No Beliefs That Will Affect Care: None marital status: Single Current Living Situation: Family current occupational status: retired Feels Safe at Home: Yes Childhood Exposure to Second-Hand Smoke: No Diet: regular caffeine: Yes during the past year weight has: remained stable Dental Care, Regularly: Yes Physical Activity Frequency: Does not Exercise Seatbelt Use: always Sunscreen Use: No Assistive Devices: Cane Review of Systems Review of Systems: All systems reviewed & are unremarkable except as noted in Subjective Physical Exam Physical Exam: Constitutional: well-appearing, no acute distress HEENT: NCAT, no conjunctival injection CV: regular rhythm, no murmur appreciated, extremities well-perfused, no LE edema Resp: CTABL, no wheezes/rales/rhonchi appreciated, no increased work of breathing GI: soft, nondistended, nontender, BS normoactive MSK: no gross deformities appreciated Skin: warm, dry, no rash appreciated Neuro: alert, oriented, no focal neurologic deficit appreciated Results & Data Results & Data Vital Signs (Past 12 Hours) Vital Signs Temp Pulse Resp BP Pulse Ox O2 Del Method 02/10/24 22:18 76 02/10/24 19:31 36.9 C 87 16 159/93 H 96 Room Air Supervising Physician Co-Signing Physician Notes Attending addendum: I have physically seen this patient, have supervised the medical residents activities, and agree with the H&P unless as otherwise noted. Assessment and Plan: Hypomagnesemia- Magnesium 1.1 on admission To receive 4 g of magnesium sulfate IV Pantoprazole 40 mg p.o. daily which has been tapered without recurrence of symptoms Start on famotidine 20 mg p.o. twice daily Difficult for him to take oral magnesium, as it causes diarrhea Hypertension/acute kidney injury superimposed on CKD- Creatinine 1.71 with baseline 1.48 He reports not having taken furosemide for a while Hold evening dose of ramipril Continue amiloride and atenolol with hold parameters IV fluids as noted For both problems consult nephrology Dr. Robertson GERD- Stop pantoprazole as noted Start famotidine as noted Could consider Carafate if symptomatic Diabetes mellitus- Hold glimepiride Placed on Accu-Cheks with NovoLog SSI Resident Activity Tracking Resident Involvement: Resident Care Provided Care Provided: Adult Hospital Medicine (2) Gastroesophageal reflux disease Esophagitis presence: without esophagitis Qualified Code(s): K21.9 - Gastro- esophageal reflux disease without esophagitis (4) Hypertension Hypertension type: essential hypertension Qualified Code(s): I10 - Essential (primary) hypertension (5) Diabetes mellitus Chronic kidney disease stage: unspecified stage Diabetes mellitus complication detail: with chronic kidney disease Diabetes mellitus complication status: with kidney complications Diabetes mellitus manager intermediate insulin use: without skilled nursing use Diabetes mellitus type: type 2 Qualified Code(s): E11.22 - Type 2 diabetes mellitus with diabetic chronic kidney disease
--- NOTE | 2024-02-10 22:45 | Emergency Department Note ---
Impression & Plan Hypomagnesemia, Acute on chronic renal insufficiency, Dizziness ED Provider Note NAME: GABRIELLA BECKER AGE: 73 SEX: M : 1950 ARRIVES VIA: Walk-In INFORMANT: Patient ED PROVIDER(S): Deepak Membreno MD CHIEF COMPLAINT: Dizziness, Low magnesium, referred. PLAN: Disposition: Admit MEDICAL DECISION MAKING: The patient is a pleasant 73-year-old gentleman with a past medical history of acid reflux, hypertension, hyperlipidemia who presents to the emergency department via walk-in referred by his outpatient doctor for recurrence of low magnesium with magnesium of 1.1 this morning despite having decreased his dose of pantoprazole which was suspected to be contributing to his poor magnesium absorption and also controlling his chronic diarrhea with Imodium. Patient reports feeling weak, nauseated, and dizzy with tingling in extremities similar to his admission recently. Denies chest pain or shortness of breath. He otherwise denies fevers, chills, cough congestion, vomiting. Of note, the patient did arrive to emergency department during time of high volume, acuity and prolonged emergency department waiting times. Critical pathways initiated from triage. On evaluation the patient is no acute distress, afebrile with blood pressure 150s/90s vital signs otherwise stable. Appears clinically dry. Has no focal neurologic deficits. EKG without overt acute ischemia. WBC and platelets wnl. H/H similar to prior range. Chemistry without acidosis. Creatine 1.72 increased from prior. Magnesium 1.1 with IV repletion initiated. Otherwise Electrolytes unremarkable. LFTs without significant abnormality. HS troponin 8.6 wnl. Lipase wnl. Patient agrees with referral for admission for further management for peristently low magnesium. Case was discussed with Dr. Castro, admitting [place] [facility] [place] who will evaluate the patient for admission. Further management per admitting team. Triage Nursing notes reviewed and agree them. Prior/external medical records reviewed Vital Signs: reviewed Differential diagnosis: Infection, dehydration, metabolic abnormality, hypo/hyperglycemia, electrolyte disturbance, anemia, hypoxia, cardiac sources, intracerebral event, toxicologic, neurologic, as well as other pathologies. ER treatment provided: See below. Diagnostics interpreted by me: ECG: Normal sinus rhythm, 76 bpm, no ectopy, no overt ST elevation or depression, QTc 407, QRS 82. Cardiac Monitoring: An order for continuous cardiac monitoring was placed and demonstrated Normal sinus rhythm, 76 bpm, no ectopy, Laboratory studies: See below Imaging studies: See below Consultation(s): Case was discussed with Dr. Castro, admitting resident [place], [facility] [place] who will evaluate the patient for admission. HPI: The patient is a pleasant 73-year-old gentleman with a past medical history of acid reflux, hypertension, hyperlipidemia who presents to the emergency department via walk-in referred by his outpatient doctor for recurrence of low magnesium with magnesium of 1.1 this morning despite having decreased his dose of pantoprazole which was suspected to be contributing to his poor magnesium absorption and also controlling his chronic diarrhea with Imodium. Patient reports feeling weak, nauseated, and dizzy with tingling in extremities similar to his admission recently. Denies chest pain or shortness of breath. He otherwise denies fevers, chills, cough congestion, vomiting. ROS: See above HPI for pertinent positives & negatives. A total of 10 systems reviewed and were otherwise negative. VITALS:See Below PHYSICAL EXAMINATION: GENERAL: Awake, alert, in no distress HENT: Normocephalic, atraumatic. Oropharynx with dry mucous membranes and otherwise unremarkable. EYES: Normal conjunctiva. Sclera non-icteric. NECK: Supple. No nuchal rigidity. FROM. No JVD. RESPIRATORY: Clear to auscultation. CARDIAC: Regular rate, normal rhythm. Extremities warm and well perfused. Pulses equal. ABDOMEN: Soft, non-distended. No tenderness to palpation. No rebound or guarding. No masses. MUSCULOSKELETAL: Chest examination reveals no tenderness. The back is symmetrical on inspection without obvious abnormality. There is no CVA tenderness to palpation. No joint edema. LOWER EXTREMITIES: Calves are equal size bilaterally and non-tender. No edema. No discoloration. NEURO: Normal sensorium. No sensory or motor deficits noted. 5/5 strength and SILT x 4 extremities. Intact finger to nose. DTRs wnl. No clonus. SKIN: No rash or jaundice noted. Deepak Membreno MD Past Med/Surg History Problem List (Updated 02/13/24 @ 02:32 by Deepak Membreno MD) Dizziness (Acute) Acute on chronic renal insufficiency (Acute) Diarrhea (Acute) Weakness (Acute) Diabetes mellitus with diabetic nephropathy Hypomagnesemia (Acute) Osteoarthritis (Chronic) Proteinuria (Chronic) Obesity (Chronic) Hypertension (Chronic) Hypercholesterolemia (Chronic) Gastroesophageal reflux disease (Chronic) Diabetes mellitus (Chronic) Surgical History No significant past surgical history Family History Father Congestive heart failure Mother Coronary heart disease Myocardial infarction Type 2 diabetes mellitus Brother Essential hypertension Sister Myocardial infarction Denies family history of Ovarian cancer Prostate cancer Kidney disease Breast cancer Colorectal cancer Social History Smoking Status: Former smoker Tobacco Type: Cigarettes Age Started Using Tobacco: 21; Second Hand Exposure: No; Do You Dip or Chew Tobacco: No; Hx Alcohol Use: No Hx Substance Use: No Preferred Language: Yoruba Communication Ability: Effective Visual Impairment: No Limitations Hearing Ability: Normal Industrial Technician Required: No Beliefs That Will Affect Care: None marital status: Single Current Living Situation: Family current occupational status: retired Feels Safe at Home: Yes Childhood Exposure to Second-Hand Smoke: No Diet: regular caffeine: Yes during the past year weight has: remained stable Dental Care, Regularly: Yes Physical Activity Frequency: Does not Exercise Seatbelt Use: always Sunscreen Use: No Assistive Devices: Cane Allergies Allergies Allergy/AdvReac Type Severity Reaction Status Date / Time No Known Allergies Allergy Verified 02/01/24 15:20 Home Meds Home Medications Medication Instructions Recorded Confirmed blood sugar diagnostic (OneTouch #10 ea 06/24/19 01/27/24 Ultra Blue Test Strip) cholecalciferol (vitamin D3) 25 3,000 units PO QDL 06/24/19 02/10/24 mcg (1,000 unit) capsule lancets 33 gauge (OneTouch Delica #100 ea 06/24/19 01/27/24 Lancets) flaxseed 1,000 mg capsule 1,000 mg PO QDL 05/28/23 02/10/24 krill 500 mg-omega-3 150 mg-dha 45 1 cap PO QDL 05/28/23 02/10/24 mg-epa 75 [id number] capsule (krill oil) vitamin B complex 1 cap PO QPM 05/28/23 02/10/24 atenolol 50 mg tablet 25 mg PO QAM 02/01/24 02/10/24 atorvastatin 20 mg tablet 20 mg PO QDL 02/01/24 02/10/24 atorvastatin 40 mg tablet 40 mg PO QDL 02/01/24 02/10/24 pantoprazole 40 mg tablet,delayed 40 mg PO QAM 02/10/24 02/10/24 release Previous Rx's Medication Instructions Recorded furosemide 20 mg tablet 20 mg PO DAILY PRN edema #90 tabs 07/16/22 ramipril 10 mg capsule 10 mg PO BID #180 caps 07/02/23 diclofenac sodium 1 % topical gel 4 g topical QID PRN Joint Pain 90 07/04/23 days #300 grams glimepiride 1 mg tablet 1 mg PO BID #180 tabs 01/19/24 loperamide 2 mg capsule 2 mg PO Q6 PRN diarrhea #45 caps 02/03/24 metformin 500 mg tablet,extended 500 mg PO BID #60 tabs 02/03/24 release 24 hr amiloride 5 mg tablet 5 mg PO DAILY #30 tabs 02/12/24 magnesium L-lactate 84 mg 84 mg PO BID #60 tabs 02/12/24 tablet,extended release Results & Data (ED) Vital Signs Vital Signs - 24 hr 02/10/24 19:31 02/10/24 22:18 02/10/24 23:00 Temperature 36.9 C Temperature Source Oral Pulse Rate 87 76 Respiratory Rate 16 Respiratory Depth Normal Blood Pressure 159/93 H Blood Pressure Mean 115 Pulse Oximetry 96 94 Oxygen Delivery Method Room Air Room Air Sepsis Recent Fever Within 48 Hours No Sepsis New/Unexplained Change in Mental Status No Sepsis Action Taken by Nursing No Action Required 02/10/24 23:00 Temperature Temperature Source Pulse Rate 77 Respiratory Rate 17 Respiratory Depth Blood Pressure Blood Pressure Mean Pulse Oximetry 94 Oxygen Delivery Method Room Air Sepsis Recent Fever Within 48 Hours Sepsis New/Unexplained Change in Mental Status Sepsis Action Taken by Nursing Laboratory Data Attestation: I reviewed the patient's lab results. 02/11/24 03:46 02/11/24 03:46 Lab Results 02/10/24 Range/Units 20:03 WBC 9.72 (4.8-10.8) K/ul RBC 4.19 L (4.70-6.10) M/uL Hgb 13.0 L (14.0-18.0) g/dl Hct 39.0 L (42.0-52.0) % MCV 93.1 (80.0-100.0) fL MCH 31.0 (25.0-34.0) pg MCHC 33.3 (32.0-36.0) g/dL RDW Std Deviation 43.7 (36.4-46.3) fL RDW Coeff of Jonathan 12.9 (11.5-14.5) % Plt Count 215 (130-400) K/uL MPV 10.0 (9.4-12.4) fL Immature Gran % (Auto) 0.4 % Neut % (Auto) 73.1 % Lymph % (Auto) 15.2 % Rutherford % (Auto) 8.5 % Eos % (Auto) 2.4 % Baso % (Auto) 0.4 % Neut # (Auto) 7.10 H (1.40-6.50) K/uL Lymph # (Auto) 1.48 (1.20-3.40) K/uL Rutherford # (Auto) 0.83 H (0.11-0.59) K/uL Eos # (Auto) 0.23 (0.00-0.50) K/uL Baso # (Auto) 0.04 (0.00-0.20) K/uL Immature Gran # (Auto) 0.04 (0.01-0.20) K/uL Sodium 136 (136-145) mmol/L Potassium 4.4 (3.5-5.1) mmol/L Chloride 103 (98-107) mmol/L Carbon Dioxide 23 (21-32) mmol/L Anion Gap 10 (3-11) BUN 22 (6-23) mg/dl Creatinine 1.71 H (0.6-1.4) mg/dl Est Cr Clr Drug Dosing 45.7 ml/min Est GFR ( Amer) 45.4 ml/min Est GFR (Non-Af Amer) 39.1 ml/min BUN/Creatinine Ratio 12.9 (10-20) Glucose 89 (70-99(Fasting)) mg/dl Calcium 9.1 (8.6-10.3) mg/dl Magnesium 1.1 L (1.7-2.4) mg/dl Total Bilirubin 0.6 (0.2-1.0) mg/dl AST 16 (13-39) U/L ALT 15 (7-52) U/L Alkaline Phosphatase 66 (34-104) U/L Troponin I High Sens 8.6 (0-20) pg/ml Total Protein 7.0 (6.0-8.3) gm/dl Albumin 4.1 (3.4-5.0) gm/dl Globulin 2.9 (2.5-4.0) gm/dl Albumin/Globulin Ratio 1.4 (0.9-2) Lipase 24 (11-82) U/L Administered Medications Discontinued Medications Amiloride HCl (Amiloride Hcl 5 Mg Tab) 5 mg PO ONE ONE Stop: 02/11/24 11:32 Last Admin: 02/11/24 12:00 Dose: 5 mg Documented By: EMILIANO Atenolol (Atenolol 25 Mg Tablet) 25 mg PO QAM [facility] Stop: 03/12/24 08:59 Last Admin: 02/11/24 07:54 Dose: Not Given Documented By: [facility] Atorvastatin Calcium (Atorvastatin 40 Mg Tab) 40 mg PO QDL [facility] Stop: 03/12/24 11:29 Last Admin: 02/11/24 11:59 Dose: 40 mg Documented By: [facility] Atorvastatin Calcium (Atorvastatin 20 Mg Tab) 20 mg PO QDL [facility] Stop: 03/12/24 11:29 Last Admin: 02/11/24 11:59 Dose: 20 mg Documented By: [facility] Enalapril Maleate (Enalapril Maleate 10 Mg Tab) 20 mg PO BID [facility] Stop: 03/12/24 08:59 Last Admin: 02/11/24 07:54 Dose: 20 mg Documented By: [facility] Magnesium Sulfate/Dextrose (Magnesium Sulfate / D5w) 1 gm in 100 mls @ 100 mls/hr IV Q1H WILLARD Stop: 02/11/24 01:18 Last Infusion: 02/11/24 02:11 Dose: Infused Documented By: Admin: 02/11/24 01:11 Dose: 100 mls/hr Documented By: Infusion: 02/11/24 01:11 Dose: Infused Documented By: Admin: 02/11/24 00:12 Dose: 100 mls/hr Documented By: Infusion: 02/11/24 00:12 Dose: Infused Documented By: Admin: 02/10/24 23:11 Dose: 100 mls/hr Documented By: Infusion: 02/10/24 23:05 Dose: Infused Documented By: Shandra Admin: 02/10/24 21:57 Dose: 100 mls/hr Documented By: JOCELINE Sodium Chloride (Nss) 500 mls @ 999 mls/hr IV .Q31M ONE Stop: 02/10/24 21:50 Last Infusion: 02/10/24 22:37 Dose: Infused Documented By: Admin: 02/10/24 21:57 Dose: 999 mls/hr Documented By: JOCELINE Sodium Chloride (Nss) 500 mls @ 125 mls/hr IV .Q4H [facility] Stop: 03/11/24 21:29 Last Infusion: 02/11/24 01:15 Dose: Infused Documented By: [facility] Admin: 02/10/24 21:57 Dose: 125 mls/hr Documented By: JOCELIEN Sodium Chloride (Nss) 1,000 mls @ 125 mls/hr IV .Q8H [facility] Stop: 03/12/24 00:14 Last Admin: 02/11/24 07:55 Dose: 125 mls/hr Documented By: Infusion: 02/11/24 07:55 Dose: Infused Documented By: [facility] Admin: 02/11/24 01:15 Dose: 125 mls/hr Documented By: NORA Magnesium Sulfate/Dextrose (Magnesium Sulfate / D5w) 1 gm in 100 mls @ 50 mls/hr IV Q2H [facility] Stop: 02/11/24 15:14 Last Admin: 02/11/24 13:53 Dose: 50 mls/hr Documented By: Infusion: 02/11/24 13:51 Dose: Infused Documented By: [facility] Admin: 02/11/24 11:58 Dose: 50 mls/hr Documented By: EMILIANO Insulin Aspart (Insulin Aspart Per Unit Charge) 0 units SC ACHS [facility] Stop: 03/12/24 07:29 Last Admin: 02/11/24 11:58 Dose: 2 units Documented By: EMILIANO Co-signed By: DAVID Admin: 02/11/24 07:43 Dose: Not Given Documented By: [facility] Magnesium Chloride (Magnesium Chloride W/Calcium 64mg Delayed Rel Tab) 64 mg PO BID WILLARD Stop: 03/12/24 10:44 Last Admin: 02/11/24 11:59 Dose: 64 mg Documented By: [facility] Discharge Plan Visit Data Chief Complaint: Dizziness Stated Complaint: LIGHTHEADED, TINGLLE IN HANDS, DIARRHEA ED Provider: Deepak Membreno Discharge Problem: Hypomagnesemia, Acute on chronic renal insufficiency, Dizziness Patient Disposition: Admitted As Inpatient Discharge Instructions Interventions: ED Discharge Assessment Last Done: 02/11/24 00:20
[2024-02-11] MEDS ORDERED: ACETAMINOPHEN 325 MG TAB PO PRN (00:02)
[2024-02-11] MEDS ORDERED: GLUCOSE 40% GEL 15 GM TUBE PO PRN (00:02)
[2024-02-11] MEDS ORDERED: GLUCOSE 10 TAB/TUBE PO PRN (00:02)
[2024-02-11] MEDS ORDERED: GLUCAGON FOR INJ 1 MG VIAL SQ PRN (00:02)
[2024-02-11] MEDS ORDERED: CARBOHYDRATES FOR HYPOGLYCEMIA PO PRN (00:02)
[2024-02-11] MEDS ORDERED: POLYETHYLENE (MIRALAX) 17 GM PACK PO PRN (00:02)
[2024-02-11] MEDS ORDERED: DEXTROSE 50% 50 ML SYRINGE IV PRN (00:02)
[2024-02-11] MEDS: SODIUM CHLORIDE 0.9% 1,000 ML IV SCH (01:15)
[2024-02-11 04:32] LABS: Albumin Globulin Ratio 1.5 (0.9-2); Albumin Level 3.5 gm/dl (3.4-5.0); BUN Creatinine Ratio 11.8 (10-20); Bilirubin,Total 0.4 mg/dl (0.2-1.0); Calcium 8.3 mg/dl (8.6-10.3); Est GFR (African American) 48.8 ml/min; Est GFR (Non-African American) 42.1 ml/min; Globulin 2.4 gm/dl (2.5-4.0); Magnesium 2.2 mg/dl (1.7-2.4); Phosphorus 3.8 mg/dl (2.5-4.9); Potassium 4.2 mmol/L (3.5-5.1); Total Protein 5.9 gm/dl (6.0-8.3)
[2024-02-11 04:33] LABS: Basophils # (auto) 0.03 K/uL (0.00-0.20); Basophils % (auto) 0.4 %; Eosinophils # (auto) 0.26 K/uL (0.00-0.50); Eosinophils % (auto) 3.3 %; Hematocrit (blood only) 34.2 % (42.0-52.0); Hemoglobin 11.3 g/dl (14.0-18.0); Immature Granulocytes # (auto) 0.02 K/uL (0.01-0.20); Immature Granulocytes % (auto) 0.3 %; Lymphocytes # (auto) 1.94 K/uL (1.20-3.40); Lymphocytes % (auto) 24.7 %; Mean Corpuscular Hemoglobin 31.1 pg (25.0-34.0); Mean Corpuscular Volume 94.2 fL (80.0-100.0); Monocytes # (auto) 0.74 K/uL (0.11-0.59); Monocytes % (auto) 9.4 %; Neutrophils # (auto) 4.85 K/uL (1.40-6.50); Neutrophils % (auto) 61.9 %; Platelet Count 186 K/uL (130-400); RDW Standard Deviation 44.5 fL (36.4-46.3); Red Blood Count 3.63 M/uL (4.70-6.10); White Blood Count 7.84 K/ul (4.8-10.8)
[2024-02-11] MEDS: INSULIN ASPART PER UNIT CHARGE SC SCH (07:43)
[2024-02-11] MEDS: ENALAPRIL MALEATE 10 MG TAB PO SCH (07:54)
[2024-02-11] MEDS: ATENOLOL 25 MG TABLET PO SCH (07:54)
--- NOTE | 2024-02-11 11:18 | Nephrology Consultation ---
Date of Consultation February 11, 2024 Assessment & Plan (1) CKD (chronic kidney disease): (2) Hypomagnesemia: Plan Hospitalist service has corrected serum Mg w/ IV administration overnight and patient is now subjectively improved. FeMg on spot urine sample earlier this month was 14% suggestive of renal Mg wasting. Cause is not clear. Agree with reducing PPI to lowest dose that controls symptoms. Will change Spironolactone to Amiloride 5 mg daily to help low renal Mg wasting. Hospital pharmacy does not carry sustained release Mg. Recommend as outpatient that Mr. Granado take Magnesium Lactate SR [facility] 84 mg BID with food. I have asked our parking regulation enforcement officer staff to arrange follow up w/ Dr. Mcgrath within 1 week and placed order for PRP and Mg to be completed 1 day prior to outpatient follow up visit. POC discussed w/ hospitalist service this am 80 min visit provided History of Present Illness Reason for Consultation: Hypomagnesemia Attending Physician: Isaak Mccarthy History of Present Illness Mr. Granado is a 73 year old white male who is seen at the request of [facility] hospitalist service for evaluation of recurrent hypomagnesemia. Information for the HPI is obtained from direct patient interview and review of the EMR. HPI is summarized as follows: Mr. Granado has a known h/o CKD stage G3b/A1 (moderate impairment). Baseline Cr 1.5-1.9 w/ EGFR 42 cc/min. His primary Lens Coating Technician is Dr. Mcgrath. CKD is attributed to DKD. His medical history is also significant for AODM, HTN, obesity, GERD, OA/DJD, hypomagnesemia. Mr. Granado was last hospitalized 02/01/24-02/03/24 due to weakness associated w/ diarrhea and hypomagnesemia. Evaluation at that time revealed FeMg14%. Protonix dose was reduced, IV MgSO4 was provided and patient was changed from OTC [employer] Super Mg (combination Mg Aspartate, Lactate and Citrate) to MgCl. Unfortunately Mr. Granado tolerated the MgCl poorly with recurrent diarrhea and presented to the [facility] last evening w/ Mg 1.1 and weakness. Allergies Allergy/AdvReac Type Severity Reaction Status Date / Time No Known Allergies Allergy Verified 02/01/24 15:20 Home Medications Medication Instructions Recorded Confirmed Type blood sugar diagnostic (Unite TechnologiesTouch #10 ea 06/24/19 01/27/24 History Ultra Blue Test Strip) cholecalciferol (vitamin D3) 25 3,000 units PO QDL 06/24/19 02/10/24 History mcg (1,000 unit) capsule lancets 33 gauge (Jazmine Delalcides #100 ea 06/24/19 01/27/24 History Lancets) furosemide 20 mg tablet 20 mg PO DAILY PRN edema #90 tabs 07/16/22 02/10/24 Rx flaxseed 1,000 mg capsule 1,000 mg PO QDL 05/28/23 02/10/24 History krill 500 mg-omega-3 150 mg-dha 45 1 cap PO QDL 05/28/23 02/10/24 History mg-epa 75 [id number] capsule (krill oil) vitamin B complex 1 cap PO QPM 05/28/23 02/10/24 History ramipril 10 mg capsule 10 mg PO BID #180 caps 07/02/23 02/10/24 Rx diclofenac sodium 1 % topical gel 4 g topical QID PRN Joint Pain 90 07/04/23 02/10/24 Rx days #300 grams glimepiride 1 mg tablet 1 mg PO BID #180 tabs 01/19/24 02/10/24 Rx magnesium chloride 64 mg 64 mg PO BID #180 tabs 01/26/24 02/10/24 Rx (magnesium chloride) tablet,delayed release atenolol 50 mg tablet 25 mg PO QAM 02/01/24 02/10/24 History atorvastatin 20 mg tablet 20 mg PO QDL 02/01/24 02/10/24 History atorvastatin 40 mg tablet 40 mg PO QDL 02/01/24 02/10/24 History spironolactone 50 mg tablet 50 mg PO QDL 02/01/24 02/10/24 History loperamide 2 mg capsule 2 mg PO Q6 PRN diarrhea #45 caps 02/03/24 02/10/24 Rx metformin 500 mg tablet,extended 500 mg PO BID #60 tabs 02/03/24 02/10/24 Rx release 24 hr pantoprazole 40 mg tablet,delayed 40 mg PO QAM 02/10/24 02/10/24 History release amiloride 5 mg tablet 5 mg PO DAILY #30 tabs 02/11/24 Rx magnesium L-lactate 84 mg 84 mg PO BID #60 tabs 02/11/24 Rx tablet,extended release Patient History Surgical History No significant past surgical history Family History Father Congestive heart failure Mother Coronary heart disease Myocardial infarction Type 2 diabetes mellitus Brother Essential hypertension Sister Myocardial infarction Denies family history of Ovarian cancer Prostate cancer Kidney disease Breast cancer Colorectal cancer Social History Smoking Status: Former smoker Tobacco Type: Cigarettes Age Started Using Tobacco: 21; Second Hand Exposure: No; Do You Dip or Chew Tobacco: No; Hx Alcohol Use: No Hx Substance Use: No Preferred Language: Indonesian Communication Ability: Effective Visual Impairment: No Limitations Hearing Ability: Normal Apns Required: No Beliefs That Will Affect Care: None marital status: Single Current Living Situation: Family current occupational status: retired Feels Safe at Home: Yes Childhood Exposure to Second-Hand Smoke: No Diet: regular caffeine: Yes during the past year weight has: remained stable Dental Care, Regularly: Yes Physical Activity Frequency: Does not Exercise Seatbelt Use: always Sunscreen Use: No Assistive Devices: Cane Review of Systems Constitutional: + fatigue; no fever Eyes: no problem reported Ear, Nose, Mouth, Throat: no problem reported Respiratory: no cough and no dyspnea Cardiovascular: no chest pain Gastrointestinal: + diarrhea/loose stools Genitourinary: no dysuria or no hematuria Integumentary: no rash Neurologic: no problem reported Physical Exam Constitutional: not in distress Eyes: PERRL, conjunctivae normal, anicteric sclerae ENMT: external ear and nose normal, oropharynx normal Neck: trachea midline, no thyromegaly Respiratory: normal respiratory effort, lungs clear to auscultation Cardiovascular: RRR, no murmur, no edema Gastrointestinal (Abdomen): normal bowel sounds, soft, nontender, no hepatosplenomegaly Skin: no rashes, warm and dry Psychiatric: Affect: euthymic affect Results & Data Vital Signs (Past 12 Hours) Vital Signs Temp Pulse Pulse Pulse Resp BP Pulse Ox 02/11/24 11:06 36.8 C 58 L 18 131/76 96 02/11/24 07:28 36.9 C 60 18 143/93 H 93 02/11/24 04:51 36.9 C 61 17 139/76 95 02/11/24 00:37 71 02/11/24 00:25 36.6 C 68 18 148/90 H 97 02/11/24 00:20 36.6 C 68 18 148/90 H 97 O2 Del Method 02/11/24 11:06 Room Air 02/11/24 07:28 Room Air 02/11/24 04:51 Room Air 02/11/24 00:37 02/11/24 00:25 Room Air 02/11/24 00:20 Room Air Laboratory Results Laboratory Results WBC 7.84 K/ul (4.8-10.8) 02/11/24 03:46 RBC 3.63 M/uL (4.70-6.10) L 02/11/24 03:46 Hgb 11.3 g/dl (14.0-18.0) L 02/11/24 03:46 Hct 34.2 % (42.0-52.0) L 02/11/24 03:46 MCV 94.2 fL (80.0-100.0) 02/11/24 03:46 MCH 31.1 pg (25.0-34.0) 02/11/24 03:46 MCHC 33.0 g/dL (32.0-36.0) 02/11/24 03:46 RDW Std Deviation 44.5 fL (36.4-46.3) 02/11/24 03:46 RDW Coeff of Jonathan 13.0 % (11.5-14.5) 02/11/24 03:46 Plt Count 186 K/uL (130-400) 02/11/24 03:46 MPV 10.0 fL (9.4-12.4) 02/11/24 03:46 Immature Gran % (Auto) 0.3 % 02/11/24 03:46 Neut % (Auto) 61.9 % 02/11/24 03:46 Lymph % (Auto) 24.7 % 02/11/24 03:46 Wirt % (Auto) 9.4 % 02/11/24 03:46 Eos % (Auto) 3.3 % 02/11/24 03:46 Baso % (Auto) 0.4 % 02/11/24 03:46 Neut # (Auto) 4.85 K/uL (1.40-6.50) 02/11/24 03:46 Lymph # (Auto) 1.94 K/uL (1.20-3.40) 02/11/24 03:46 Wirt # (Auto) 0.74 K/uL (0.11-0.59) H 02/11/24 03:46 Eos # (Auto) 0.26 K/uL (0.00-0.50) 02/11/24 03:46 Baso # (Auto) 0.03 K/uL (0.00-0.20) 02/11/24 03:46 Immature Gran # (Auto) 0.02 K/uL (0.01-0.20) 02/11/24 03:46 Sodium 137 mmol/L (136-145) 02/11/24 03:46 Potassium 4.2 mmol/L (3.5-5.1) 02/11/24 03:46 Chloride 105 mmol/L (98-107) 02/11/24 03:46 Carbon Dioxide 24 mmol/L (21-32) 02/11/24 03:46 Anion Gap 8 (3-11) 02/11/24 03:46 BUN 19 mg/dl (6-23) 02/11/24 03:46 Creatinine 1.61 mg/dl (0.6-1.4) H 02/11/24 03:46 Est Cr Clr Drug Dosing 49.0 ml/min 02/11/24 03:46 Est GFR ( Amer) 48.8 ml/min 02/11/24 03:46 Est GFR (Non-Af Amer) 42.1 ml/min 02/11/24 03:46 BUN/Creatinine Ratio 11.8 (10-20) 02/11/24 03:46 Glucose 96 mg/dl (70-99(Fasting)) 02/11/24 03:46 POC Glucose 116 mg/dl (70-99) H 02/11/24 11:05 Calcium 8.3 mg/dl (8.6-10.3) L 02/11/24 03:46 Phosphorus 3.8 mg/dl (2.5-4.9) 02/11/24 03:46 Magnesium 2.2 mg/dl (1.7-2.4) 02/11/24 03:46 Total Bilirubin 0.4 mg/dl (0.2-1.0) 02/11/24 03:46 AST 14 U/L (13-39) 02/11/24 03:46 ALT 12 U/L (7-52) 02/11/24 03:46 Alkaline Phosphatase 57 U/L (34-104) 02/11/24 03:46 Troponin I High Sens 8.6 pg/ml (0-20) 02/10/24 20:03 Total Protein 5.9 gm/dl (6.0-8.3) L 02/11/24 03:46 Albumin 3.5 gm/dl (3.4-5.0) 02/11/24 03:46 Globulin 2.4 gm/dl (2.5-4.0) L 02/11/24 03:46 Albumin/Globulin Ratio 1.5 (0.9-2) 02/11/24 03:46 Lipase 24 U/L (11-82) 02/10/24 20:03 PG Care Time/CCT Total # of Minutes Spent Total Time Spent with Patient: Total time spent is greater than 50% in coordination of care (as documented) at patient's floor/unit and/or counseling patient: Coding Level of Care Code 92679 IN/OBS CONSULT LVL 5,80M Diagnoses CKD (chronic kidney disease) N18.9 Hypomagnesemia E83.42
[2024-02-11] MEDS ORDERED: SPIRONOLACTONE 25 MG TAB PO SCH (11:30)
--- NOTE | 2024-02-11 11:52 | Electrocardiogram Report ---
Test Reason : Blood Pressure : / mmHG Vent. Rate : 076 BPM Atrial Rate : 076 BPM P-R Int : 196 ms QRS Dur : 082 ms QT Int : 362 ms P-R-T Axes : 040 004 032 degrees QTc Int : 407 ms Normal sinus rhythm Possible Inferior infarct , age undetermined Abnormal ECG When compared with ECG of 01-FEB-2024 13:54, Borderline criteria for Inferior infarct are now Present T wave amplitude has increased in Anterior leads Confirmed by Timo Kay ([id number]) on 02/11/2024 11:51:40 AM Referred By: REFERRED SELF Confirmed By:Vincent Kay
--- NOTE | 2024-02-11 11:54 | Electrocardiogram Report ---
Test Reason : Blood Pressure : / mmHG Vent. Rate : 056 BPM Atrial Rate : 056 BPM P-R Int : 198 ms QRS Dur : 100 ms QT Int : 440 ms P-R-T Axes : 048 047 -01 degrees QTc Int : 424 ms Sinus bradycardia Otherwise normal ECG When compared with ECG of 10-FEB-2024 20:01, (unconfirmed) QRS duration has increased Confirmed by Timo Kay ([id number]) on 02/11/2024 11:53:48 AM Referred By: REFERRED SELF Confirmed By:Vincent Kay
[2024-02-11] MEDS: MAGNESIUM SULFATE / D5W 1 GM/100 ML BAG IV SCH (11:58)
[2024-02-11] MEDS: ATORVASTATIN 20 MG TAB PO SCH (11:59)
[2024-02-11] MEDS: ATORVASTATIN 40 MG TAB PO SCH (11:59)
[2024-02-11] MEDS: MAGNESIUM CHLORIDE W/CALCIUM 64MG DELAYED REL TAB PO SCH (11:59)
[2024-02-11] MEDS: aMILoride HCL 5 MG TAB PO ONE (12:00)
--- NOTE | 2024-02-11 19:43 | Billing Data ---
Date of Service February 11, 2024 Coding Level of Care Code 04969 INT INP/OBS CARE
[2024-02-12] MEDS ORDERED: aMILoride HCL 5 MG TAB PO SCH (09:00)
--- NOTE | 2024-02-15 22:32 | Discharge Summary ---
Date of Service February 11, 2024 Admission HPI Per Admitting Provider Henri Granado is a 73-year-old male who presents to the hospital for low magnesium. Patient was recently discharged from the hospital hypomagnesia. He had it checked today and was told to come into the emergency room. States that he is having tingling in his hands and legs and he feels weak. States that since he has been home he has been taking oral magnesium. With the oral magnesium he has also been taking Imodium and has only had approximately 3 episodes of diarrhea over the past week since being discharged. Denies any other symptoms. Denies any chest pain, abdominal pain, or palpitations. Principal Diagnosis hypomagnesemia Discharge Exam Constitutional: WD/WN, vitals as above Respiratory: normal respiratory effort, lungs clear to auscultation Cardiovascular: RRR, no murmur, no edema Skin: no rashes, warm and dry Psychiatric: A+Ox3, euthymic affect Discharge Data Allergies Allergy/AdvReac Type Severity Reaction Status Date / Time No Known Allergies Allergy Verified 02/01/24 15:20 Consultations 02/10/24 22:46 ED Decision to Admit Stat 02/11/24 00:02 Consult Nephrology Routine Hospital Course (1) Hypomagnesemia: -CBC was benign, slight rise in creatinine at 1.71, magnesium 1.1. -Patient was recently discharged from the hospital on 02/03/2024 for hypomagnesia. He saw nephrology which recommended magnesium chloride 45 mg twice daily as well as staying on spironolactone and to continue on pantoprazole 40 mg daily -Has been taking Imodium with his oral magnesium to reduce the episodes of diarrhea. Did have 3 episodes of diarrhea since discharge. -EKG showed normal sinus rhythm. -Will monitor on telemetry, nephrology consulted. Discharge plan: continue amiloride, stop spironolactone. check labs in a few days and in a week (2) Gastroesophageal reflux disease: -Was on twice daily dosing pantoprazole. Currently 40 mg daily. (3) Hypercholesterolemia: - continue home meds. (4) Hypertension: - Continue home meds. (5) Diabetes mellitus: - Patient's home regimen held on admission -resume at discharge Total Time Total Time Spent Total Time Spent (In Minutes): 32 Discharge Plan Discharge Items Patient Disposition: Home - Self-Care Reason For Visit: HYPOMAGNESIA Discharge Diagnosis: hypomagnesium Activity: Resume your previous activity Non-emergency contact: Primary Care Provider Call non-emergency contact if: you have any medication questions Follow-up/Referrals: Hai Khan III, CRNP [Primary Care Provider] - 02/20/24 9:20 am Diet: Carb Consistent or DM2 and Heart Healthy Ambulatory Orders: Basic Metabolic Panel (Routine) Timeframe: 1 Week Location: Determined by Patient Ordered By: Isaak Mccarthy Basic Metabolic Panel (Routine) Timeframe: 2 Days Location: Determined by Patient Ordered By: Isaak Mccarthy Magnesium (Routine) Timeframe: 1 Week Location: Determined by Patient Ordered By: Isaak Mccarthy Magnesium (Routine) Timeframe: 2 Days Location: Determined by Patient Ordered By: Isaak Mccarthy Addtl Attending Provider Instructions: recommend followup with PCP in 1 week Recommend checking bmp and magnesium in 2 days and in 1 week. You will be taking amiloride instead of spironolactone. Pending Studies at Discharge: No Stand-Alone Forms: My [facility] Anapsis, Smoking Cessation Medications and DC Order Prescriptions: New amiloride 5 mg tablet 5 mg PO DAILY Qty: 30 0RF magnesium L-lactate 84 mg tablet extended release 84 mg PO BID Qty: 60 0RF Continued furosemide 20 mg tablet 20 mg PO DAILY PRN (Reason: edema) Qty: 90 1RF ramipril 10 mg capsule 10 mg PO BID Qty: 180 3RF diclofenac sodium 1 % gel 4 g topical QID PRN (Reason: Joint Pain) 90 Days Qty: 300 1RF Rx Instructions: apply to single knee, ankle, foot; for foot includes sole/toes/top of foot glimepiride 1 mg tablet 1 mg PO BID Qty: 180 3RF (DME) OneTouch Ultra Blue Test Strip strip See Dose Instructions .ROUTE .MEDSUPPLY Qty: 10 Rx Instructions: As directed (DME) lancets [OneTouch Delica Lancets] 33 gauge misc See Dose Instructions .ROUTE .MEDSUPPLY Qty: 100 Rx Instructions: As directed cholecalciferol (vitamin D3) 1,000 unit capsule 3,000 units PO QDL Hold Instructions: Home Medication placed on hold at Doctor's office vitamin B complex Capsule 1 cap PO QPM flaxseed 1,000 mg Capsule 1,000 mg PO QDL krill oil [id number] mg Capsule 1 cap PO QDL atorvastatin 40 mg tablet 40 mg PO QDL Rx Instructions: TAKE 1 TABLET BY MOUTH DAILY TAKE ALONG WITH 20 MG TABLET FOR 60 MG DAILY atorvastatin 20 mg tablet 20 mg PO QDL Rx Instructions: TAKE 1 TABLET BY MOUTH DAILY TAKE ALONG WITH 40 MG TABLET FOR 60 MG DAILY atenolol 50 mg tablet 25 mg PO QAM Rx Instructions: TAKE 1/2 TABLET BY MOUTH ONCE DAILY (qam) loperamide 2 mg Capsule 2 mg PO Q6 PRN (Reason: diarrhea) Qty: 45 0RF metformin 500 mg tablet extended release 24 hr 500 mg PO BID Qty: 60 0RF Rx Instructions: Take on a full stomach pantoprazole 40 mg tablet,delayed release (DR/EC) 40 mg PO QAM Discontinued magnesium chloride 64 mg tablet,delayed release (DR/EC) 64 mg PO BID Qty: 180 3RF spironolactone 50 mg tablet 50 mg PO QDL Rx Instructions: TAKE 1 TABLET BY MOUTH DAILY (lunch) Discharge Orders: Discharge Order (Routine); Ordered 02/11/24 Ordered By: Isaak Mccarthy Admission Data Admit Date/Time: 02/10/24 23:11 Attending Provider: Isaka Mccarthy Admit Provider: David Castro Primary Care Provider: Hai Khan III Other Providers: Silvino Nevarez; Yunier Robertson; Adelso Wheatley Kevin C.; Starr Alfonso Other Interventions: Discharge Summary Assessment (RN) Last Done: 02/11/24 14:05 Coding Level of Care Code 50175 INP/OBS DISCH >30 MIN Diagnoses Hypomagnesemia E83.42 Gastroesophageal reflux disease without esophagitis K21.9 Esophagitis presence: without esophagitis Hypercholesterolemia E78.00 Essential hypertension I10 Hypertension type: essential hypertension Type 2 diabetes mellitus with chronic kidney disease, without long-term current use of insulin, unspecified CKD stage E11.22 Diabetes mellitus type: type 2 Diabetes mellitus alf insulin use: without remote computer terminal operator use Diabetes mellitus complication status: with kidney complications Diabetes mellitus complication detail: with chronic kidney disease Chronic kidney disease stage: unspecified stage
== END 2024-02-11 16:49 | disposition home or self-care (01) ==
LOC: ED 19:16 → 2E 19:16 → SUATTDRO 23:11 → 2E 02-11 00:20

== ENCOUNTER 2024-02-21 19:04 | Inpatient (IN) ==
--- NOTE | 2024-02-21 19:31 | Emergency Department Note ---
Impression & Plan Weakness, Hypomagnesemia, Anemia ED Provider Note NAME: GABRIELLA BECKER AGE: 73 SEX: M : 1950 ARRIVES VIA: Walk-In INFORMANT: Patient ED PROVIDER(S): Rehan Roldan DO CHIEF COMPLAINT: weak HPI: Patient is a 73-year-old male who presents to the ER for bilateral distal paresthesias in his hands and feet. He notes this started earlier today. He does feel a little bit on the weaker side. He denies any headache or change in vision. No chest pain or shortness of breath. He does have a history of hypomagnesia and notes that he has had this 2-3 times before in the past and feels very similar. He was discharged recently on mag notes that he has been taking it. He has no other complaints. No chest pain or shortness of breath. No dysuria, urgency, or frequency. No other exacerbating or remitting factors. No focal weakness. ADDITIONAL HISTORY OBTAINED: Per HPI Chronic Medical/Social Conditions Affecting Care: Per HPI PAST MEDICAL HISTORY:See Below PAST SURGICAL HISTORY:See Below FAMILY HISTORY:See Below SOCIAL HISTORY:See Below HOME MEDICATIONS:See Below ALLERGIES:See Below VITALS:See Below PHYSICAL EXAMINATION: GENERAL: Sitting up in bed, alert, well appearing, well nourished, no distress, non-toxic EYE EXAM: normal conjunctiva. PERRL and EOM's intact. OROPHARYNX: no exudate, no erythema, lips, buccal mucosa, and tongue normal and mucous membranes are moist NECK: supple, no nuchal rigidity, no adenopathy, non-tender LUNGS: Clear to auscultation. Normal chest wall mechanics HEART: no murmurs, S1 normal and S2 normal ABDOMEN: abdomen soft, non-tender, normo-active bowel sounds, no masses, no rebound or guarding. BACK: Back is symmetrical on inspection and there is no deformity, no midline tenderness, no CVA tenderness. SKIN: no rashes and no bruising UPPER EXTREMITIES: upper extremities are grossly normal. LOWER EXTREMITIES: No pitting edema. NEURO EXAM: Normal sensorium, cranial nerves II-XII intact, normal speech, no weakness of arms, no weakness of legs. No drift. Finger to nose intact. Gross sensation intact. MEDICAL DECISION MAKING: Patient is a 73-year-old male who presents ER for weakness and paresthesias. IV was established blood work was obtained. Labs show no significant leukocytosis or anemia. BMP with a creatinine 1.75 fairly consistent with previous. Magnesium significantly low at 0.8. LFTs bilirubin lipase is unremarkable. Patient was given IV magnesium and updated bedside. Discussed case with the hospitalist for further evaluation management treatment. Consults/Care Managements Discussions: Per MDM Triage Nursing notes reviewed. Limited review of prior medical records performed Vital Signs: reviewed and remarkable for no significant abnormalities Differential diagnosis: Infection, dehydration, metabolic abnormality, hypo/hyperglycemia, electrolyte disturbance, anemia, hypoxia, cardiac sources, intracerebral event, toxicologic, neurologic, as well as other pathologies. ER treatment provided: See below Diagnostics interpreted by me include EKG and cardiac monitoring as listed below: -Cardiac Monitoring: An order was placed for continuous cardiac monitoring. The monitor shows a rate of 85 with sinus rhythm. -ECG: Sinus rhythm rate 83 Left axis Right bundle branch block QTc 507 -Laboratory studies:Interpreted by me as stated above in MDM and shown below. Imaging studies: Xrays: As interpreted by me:none CTs show: none Procedures:none Critical Care: None Past Med/Surg History Problem List (Updated 02/21/24 @ 22:18 by Rehan Roldan DO) Anemia (Acute) Hypomagnesemia (Acute) Weakness (Acute) Aldosteronism Dizziness (Acute) Acute on chronic renal insufficiency (Acute) Diarrhea (Acute) Weakness (Acute) Diabetes mellitus with diabetic nephropathy Hypomagnesemia (Acute) Osteoarthritis (Chronic) Proteinuria (Chronic) Obesity (Chronic) Hypertension (Chronic) Hypercholesterolemia (Chronic) Gastroesophageal reflux disease (Chronic) Diabetes mellitus (Chronic) Surgical History No significant past surgical history Family History Father Congestive heart failure Mother Coronary heart disease Myocardial infarction Type 2 diabetes mellitus Brother Essential hypertension Sister Myocardial infarction Denies family history of Ovarian cancer Prostate cancer Kidney disease Breast cancer Colorectal cancer Social History Smoking Status: Never smoker Tobacco Type: Cigarettes Age Started Using Tobacco: 21; Second Hand Exposure: No; Do You Dip or Chew Tobacco: No; Hx Alcohol Use: No Hx Substance Use: No Preferred Language: Kazakh Communication Ability: Effective Visual Impairment: No Limitations Hearing Ability: Normal Crop Nutrition Scientist Required: No Beliefs That Will Affect Care: None marital status: Single Current Living Situation: Family current occupational status: retired Feels Safe at Home: Yes Childhood Exposure to Second-Hand Smoke: No Diet: regular caffeine: Yes during the past year weight has: remained stable Dental Care, Regularly: Yes Physical Activity Frequency: Does not Exercise Seatbelt Use: always Sunscreen Use: No Assistive Devices: Cane Allergies Allergies Allergy/AdvReac Type Severity Reaction Status Date / Time No Known Allergies Allergy Verified 02/21/24 20:16 Home Meds Home Medications Medication Instructions Recorded Confirmed blood sugar diagnostic (OneTouch #10 ea 06/24/19 02/20/24 Ultra Blue Test Strip) cholecalciferol (vitamin D3) 25 3,000 units PO QDL 06/24/19 02/21/24 mcg (1,000 unit) capsule lancets 33 gauge (OneTouch Delica #100 ea 06/24/19 02/20/24 Lancets) krill 500 mg-omega-3 150 mg-dha 45 1 cap PO QDL 05/28/23 02/21/24 mg-epa 75 [id number] capsule (krill oil) vitamin B complex 1 cap PO QPM 05/28/23 02/21/24 atenolol 50 mg tablet 25 mg PO QAM 02/01/24 02/21/24 atorvastatin 20 mg tablet 20 mg PO QDL 02/01/24 02/21/24 atorvastatin 40 mg tablet 40 mg PO QDL 02/01/24 02/21/24 pantoprazole 40 mg tablet,delayed 40 mg PO QAM 02/10/24 02/21/24 release flaxseed oil 1,000 mg capsule 1,000 mg PO QDL 02/21/24 02/21/24 Previous Rx's Medication Instructions Recorded furosemide 20 mg tablet 20 mg PO DAILY PRN edema #90 tabs 07/16/22 ramipril 10 mg capsule 10 mg PO BID #180 caps 07/02/23 diclofenac sodium 1 % topical gel 4 g topical QID PRN Joint Pain 90 07/04/23 days #300 grams glimepiride 1 mg tablet 1 mg PO BID #180 tabs 01/19/24 loperamide 2 mg capsule 2 mg PO Q6 PRN diarrhea #45 caps 02/03/24 amiloride 5 mg tablet 5 mg PO DAILY #90 tabs 02/20/24 magnesium L-lactate 84 mg 84 mg PO TID #90 tabs 02/20/24 tablet,extended release metformin 500 mg tablet,extended 500 mg PO BID #180 tabs 02/20/24 release 24 hr Results & Data (ED) Vital Signs Vital Signs - 24 hr 02/21/24 19:09 02/21/24 19:21 02/21/24 19:37 Temperature 36.8 C Temperature Source Temporal Artery Scan Pulse Rate 75 Pulse Rate [Apical] Respiratory Rate 18 18 Respiratory Effort / Characteristics Respiratory Depth Blood Pressure 144/89 H Blood Pressure [Right Arm] Blood Pressure Mean 107 Blood Pressure Mean [Right Arm] Blood Pressure Position [Right Arm] Pulse Oximetry 96 98 Oxygen Delivery Method Room Air Room Air Room Air Sepsis Recent Fever Within 48 Hours No Sepsis New/Unexplained Change in Mental Status No Sepsis Action Taken by Nursing No Action Required 02/21/24 19:47 02/21/24 20:36 02/21/24 21:05 Temperature Temperature Source Pulse Rate 63 Pulse Rate [Apical] 63 61 Respiratory Rate 18 18 Respiratory Effort / Characteristics Non-Labored Non-Labored Respiratory Depth Normal Normal Blood Pressure Blood Pressure [Right Arm] 134/78 126/80 Blood Pressure Mean Blood Pressure Mean [Right Arm] 96 95 Blood Pressure Position [Right Arm] Sitting Pulse Oximetry 97 96 Oxygen Delivery Method Room Air Room Air Sepsis Recent Fever Within 48 Hours Sepsis New/Unexplained Change in Mental Status Sepsis Action Taken by Nursing Laboratory Data 02/21/24 19:34 02/21/24 19:34 Lab Results 02/21/24 Range/Units 19:34 WBC 8.93 (4.8-10.8) K/ul RBC 3.93 L (4.70-6.10) M/uL Hgb 12.1 L (14.0-18.0) g/dl Hct 36.9 L (42.0-52.0) % MCV 93.9 (80.0-100.0) fL MCH 30.8 (25.0-34.0) pg MCHC 32.8 (32.0-36.0) g/dL RDW Std Deviation 42.8 (36.4-46.3) fL RDW Coeff of Jonathan 12.3 (11.5-14.5) % Plt Count 244 (130-400) K/uL MPV 10.6 (9.4-12.4) fL Immature Gran % (Auto) 0.6 % Neut % (Auto) 67.5 % Lymph % (Auto) 19.6 % [place] % (Auto) 9.4 % Eos % (Auto) 2.5 % Baso % (Auto) 0.4 % Neut # (Auto) 6.03 (1.40-6.50) K/uL Lymph # (Auto) 1.75 (1.20-3.40) K/uL [place] # (Auto) 0.84 H (0.11-0.59) K/uL Eos # (Auto) 0.22 (0.00-0.50) K/uL Baso # (Auto) 0.04 (0.00-0.20) K/uL Immature Gran # (Auto) 0.05 (0.01-0.20) K/uL Sodium 135 L (136-145) mmol/L Potassium 4.7 (3.5-5.1) mmol/L Chloride 103 (98-107) mmol/L Carbon Dioxide 21 (21-32) mmol/L Anion Gap 11 (3-11) BUN 26 H (6-23) mg/dl Creatinine 1.75 H (0.6-1.4) mg/dl Est Cr Clr Drug Dosing 44.1 ml/min Est GFR ( Amer) 44.1 ml/min Est GFR (Non-Af Amer) 38.1 ml/min BUN/Creatinine Ratio 14.9 (10-20) Glucose 107 H (70-99(Fasting)) mg/dl Calcium 8.8 (8.6-10.3) mg/dl Magnesium 0.8 L* (1.7-2.4) mg/dl Total Bilirubin 0.4 (0.2-1.0) mg/dl AST 21 (13-39) U/L ALT 19 (7-52) U/L Alkaline Phosphatase 72 (34-104) U/L Total Protein 6.8 (6.0-8.3) gm/dl Albumin 3.8 (3.4-5.0) gm/dl Globulin 3.0 (2.5-4.0) gm/dl Albumin/Globulin Ratio 1.3 (0.9-2) Lipase 38 (11-82) U/L Administered Medications Discontinued Medications Magnesium Sulfate/Dextrose (Magnesium Sulfate / D5w) 1 gm in 100 mls @ 100 mls/hr IV Q1H WILLARD Stop: 02/21/24 22:15 Last Admin: 02/21/24 21:12 Dose: 100 mls/hr Documented By: Infusion: 02/21/24 21:12 Dose: Infused Documented By: Admin: 02/21/24 20:23 Dose: 100 mls/hr Documented By: ANAYELI Discharge Plan Visit Data Chief Complaint: Weakness Stated Complaint: FEET/HANDS/LEGS TINGLING, WEAKNESS ED Provider: Rehan Roldan Discharge Problem: Weakness, Hypomagnesemia, Anemia Discharge Problem: Anemia Qualifiers: Anemia type: unspecified type Qualified Code(s): D64.9 - Anemia, unspecified
[2024-02-21 19:53] LABS: Basophils # (auto) 0.04 K/uL (0.00-0.20); Basophils % (auto) 0.4 %; Eosinophils # (auto) 0.22 K/uL (0.00-0.50); Eosinophils % (auto) 2.5 %; Hematocrit (blood only) 36.9 % (42.0-52.0); Hemoglobin 12.1 g/dl (14.0-18.0); Immature Granulocytes # (auto) 0.05 K/uL (0.01-0.20); Immature Granulocytes % (auto) 0.6 %; Lymphocytes # (auto) 1.75 K/uL (1.20-3.40); Lymphocytes % (auto) 19.6 %; Mean Corpuscular Hemoglobin 30.8 pg (25.0-34.0); Mean Corpuscular Hgb Conc 32.8 g/dL (32.0-36.0); Mean Corpuscular Volume 93.9 fL (80.0-100.0); Mean Platelet Volume 10.6 fL (9.4-12.4); Monocytes # (auto) 0.84 K/uL (0.11-0.59); Monocytes % (auto) 9.4 %; Neutrophils # (auto) 6.03 K/uL (1.40-6.50); Neutrophils % (auto) 67.5 %; Platelet Count 244 K/uL (130-400); RDW Coefficient of Variation 12.3 % (11.5-14.5); RDW Standard Deviation 42.8 fL (36.4-46.3); Red Blood Count 3.93 M/uL (4.70-6.10); White Blood Count 8.93 K/ul (4.8-10.8)
[2024-02-21 20:03] LABS: BUN Creatinine Ratio 14.9 (10-20); Calcium 8.8 mg/dl (8.6-10.3); Creatinine Clr Calc Pharmacy 44.1 ml/min; Est GFR (African American) 44.1 ml/min; Est GFR (Non-African American) 38.1 ml/min; Potassium 4.7 mmol/L (3.5-5.1)
[2024-02-21 20:13] LABS: Albumin Globulin Ratio 1.3 (0.9-2); Albumin Level 3.8 gm/dl (3.4-5.0); Bilirubin,Total 0.4 mg/dl (0.2-1.0); Magnesium 0.8 mg/dl (1.7-2.4); Total Protein 6.8 gm/dl (6.0-8.3)
[2024-02-21] MEDS: MAGNESIUM SULFATE / D5W 1 GM/100 ML BAG IV SCH ×2 (20:23→22:16)
--- NOTE | 2024-02-21 20:38 | History & Physical Report ---
Date of Service February 21, 2024 Assessment & Plan (1) Hypomagnesemia: Plan: Severe hypomagnesemia at 0.8 on arrival Two recent [place] admissions for similar Hx of hypomagnesemia and intermittent diarrhea x 3-4 years, with an acute worsening over the past 4 months Hypomagnesemia likely secondary to GI losses and poor absorption Will hold PPI for now Magnesium sulfate 1 g x 5 given Maintain K > 4 Continuous telemetry and watch for signs of SOB/bradycardia Patient's FeMg spot urine earlier this month revealed 14% renal mag wasting with unclear etiology Patient does have a routine follow-up appointment with nephrology on Friday 02/23 A.m. CBC, BMP, Mag (2) Diarrhea: Plan: Episodes of intermittent, watery diarrhea; likely contributing cause of hypomagnesemia No mucus, blood, or recent antibiotic use Loperamide 2 mg p.o. q6h as needed Will defer stool PCR, as patient has reliable diarrhea when taking too much magnesium (?osmotic effect) (3) Diabetes mellitus with diabetic nephropathy: Plan: Last A1c at 5.5% on 01/17/2024 Hold metformin, glimepiride; if diarrhea is the culprit, may recommend looking into metformin alternatives SSI; with target BSG range 110-140mg/dL, CF 45, carb ratio 15 T2DM diet BSG ACHS Adjust regimen as needed (4) Gastroesophageal reflux disease: Plan: Patient is on pantoprazole, but recently decreased to once daily Will hold PPI Famotidine may also impair absorption of magnesium Will trial sucralfate 1g BID (rather than TID - given renal function), and if possible, recommend weaning off GERD medications entirely (5) Aldosteronism: Plan: Patient recently switched spironolactone to amiloride Plan Disposition: Admit to [facility] telemetry Full code T2DM diet VTE PPx: Heparin 5000 units SQ q12h History of Present Illness Chief Complaint: Hypomagnesemia, weakness Primary Care Provider: Hai Khan III, CRISTINA Henri is a 73-year-old male with PMH of diabetes, GERD, hypercholesteremia, HTN, and hypomagnesemia. He presented for weakness and numbness and tingling in his hands on 02/20. He reports 2 recent hospitalizations for hypomagnesemia within the past month. His issues with hypomagnesia have been going on for 3-4 years, and he has been taking magnesium supplements for that amount of time. He has had intermittent diarrhea over that period of time, but this began to worsen in September 2023. Then within the past 3 weeks is diarrhea became "unbearable". The patient went on a diet in September (eating half the number of calories). When he was discharged from the hospital on 02/10, his medications were reportedly switched up. His metformin was changed to 500 mg twice daily extended release, and his spironolactone was stopped and switched to amiodarone hide (as he was told that spironolactone tends to decrease magnesium). He was also switched on his magnesium supplementations from Mag64 to mag lactate 84 mg twice daily. He was doing well this week, but then developed diarrhea this afternoon and took Imodium around 3 PM. He did not have diarrhea at all this past week (solid stool), but then started again today. He reports that when this happens, he has liquidy stool (no mucus (no blood in stool/diarrhea. Light brown in color. No melena or dark tarry stool. No recent antibiotic use. No history of food allergies or lactose intolerance. No sick contacts. 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 Patient's vitals are stable at time of admission. ED course: Magnesium sulfate 1 g IV x 2 ROS: Patient endorses diarrhea, and neuropathy (in hands, but mostly in feet). Patient denies fever, chills, night-sweats, body aches, joint pain, dizziness, lightheadedness, ANDREWS, chest pain, chest palpitations, SOB, cough, abdominal pain, N/V, blood in diarrhea, blood in urine, or burning with urination. Allergies Allergy/AdvReac Type Severity Reaction Status Date / Time No Known Allergies Allergy Verified 02/21/24 20:16 Home Medications Medication Instructions Recorded Confirmed Type blood sugar diagnostic ([employer] #10 ea 06/24/19 02/20/24 History Ultra Blue Test Strip) cholecalciferol (vitamin D3) 25 3,000 units PO QDL 06/24/19 02/21/24 History mcg (1,000 unit) capsule lancets 33 gauge ([employer] Delica #100 ea 06/24/19 02/20/24 History Lancets) furosemide 20 mg tablet 20 mg PO DAILY PRN edema #90 tabs 07/16/22 02/21/24 Rx krill 500 mg-omega-3 150 mg-dha 45 1 cap PO QDL 05/28/23 02/21/24 History mg-epa 75 [id number] capsule (krill oil) vitamin B complex 1 cap PO QPM 05/28/23 02/21/24 History ramipril 10 mg capsule 10 mg PO BID #180 caps 07/02/23 02/21/24 Rx diclofenac sodium 1 % topical gel 4 g topical QID PRN Joint Pain 90 07/04/23 02/21/24 Rx days #300 grams glimepiride 1 mg tablet 1 mg PO BID #180 tabs 01/19/24 02/21/24 Rx atenolol 50 mg tablet 25 mg PO QAM 02/01/24 02/21/24 History atorvastatin 20 mg tablet 20 mg PO QDL 02/01/24 02/21/24 History atorvastatin 40 mg tablet 40 mg PO QDL 02/01/24 02/21/24 History loperamide 2 mg capsule 2 mg PO Q6 PRN diarrhea #45 caps 02/03/24 02/21/24 Rx pantoprazole 40 mg tablet,delayed 40 mg PO QAM 02/10/24 02/21/24 History release amiloride 5 mg tablet 5 mg PO DAILY #90 tabs 02/20/24 02/21/24 Rx magnesium L-lactate 84 mg 84 mg PO TID #90 tabs 02/20/24 02/21/24 Rx tablet,extended release metformin 500 mg tablet,extended 500 mg PO BID #180 tabs 02/20/24 02/21/24 Rx release 24 hr flaxseed oil 1,000 mg capsule 1,000 mg PO QDL 02/21/24 02/21/24 History Past Med/Surg History Problem List Anemia (Acute) Hypomagnesemia (Acute) Weakness (Acute) Aldosteronism Dizziness (Acute) Acute on chronic renal insufficiency (Acute) Diarrhea (Acute) Weakness (Acute) Diabetes mellitus with diabetic nephropathy Hypomagnesemia (Acute) Osteoarthritis (Chronic) Proteinuria (Chronic) Obesity (Chronic) Hypertension (Chronic) Hypercholesterolemia (Chronic) Gastroesophageal reflux disease (Chronic) Diabetes mellitus (Chronic) Surgical History No significant past surgical history Family History Father Congestive heart failure Mother Coronary heart disease Myocardial infarction Type 2 diabetes mellitus Brother Essential hypertension Sister Myocardial infarction Denies family history of Ovarian cancer Prostate cancer Kidney disease Breast cancer Colorectal cancer Social History Smoking Status: Never smoker Tobacco Type: Cigarettes Age Started Using Tobacco: 21; Second Hand Exposure: No; Do You Dip or Chew Tobacco: No; Tobacco Cessation Education Requested by Patient: No Hx Alcohol Use: No Hx Substance Use: No Preferred Language: Serbian Communication Ability: Effective Visual Impairment: No Limitations Hearing Ability: Normal Splash Line Operator Required: No Beliefs That Will Affect Care: None marital status: Single Current Living Situation: Family Current Living Situation Comment: home with sister and brother in law current occupational status: retired Other Information That Helps Us Care for You: No Feels Safe at Home: Yes Safety Concerns: Feels Safe At This Time Childhood Exposure to Second-Hand Smoke: No Diet: regular caffeine: Yes during the past year weight has: remained stable Dental Care, Regularly: Yes Physical Activity Frequency: Does not Exercise Seatbelt Use: always Sunscreen Use: No Assistive Devices: Cane Review of Systems Review of Systems: See HPI above Physical Exam Physical Exam: General: no acute distress; pleasant affect; non-toxic appearing; well- nourished; cooperative; 96% on RA HEENT: normocephalic, atraumatic; no scleral icterus; PERRLA w/ EOMs intact; moist mucus membrane; vision and hearing grossly intact Neck: supple; no lymphadenopathy; trachea midline Skin: warm, dry without signs of tenting; no cyanosis; no rashes, lesions, or erythema noted CV: chest wall NTP; RRR; S1/S2 normal; no murmurs/rubs/gallops; pulses intact and symmetric at radial, DP, and PT Lungs: no acute respiratory distress; symmetrical chest wall expansion; clear breath sounds across all lung her w/o adventitious sounds; no wheezing ABD: Soft, NTP; BS present; no rebound/guarding; no distention; bruising on the abdomen secondary to SQ heparin MSK: no tics or fasciculations; no edema noted in the LEs b/l, nonerythematous Neuro: A&Ox3; normal mood and affect; fluent speech; no focal deficits; sensation intact and symmetric in the UEs/LEs b/l Results & Data Results & Data Vital Signs (Past 12 Hours) Vital Signs Temp Pulse Pulse Resp BP BP Pulse Ox 02/21/24 19:47 63 18 134/78 97 02/21/24 19:37 18 98 02/21/24 19:21 02/21/24 19:09 36.8 C 75 18 144/89 H 96 O2 Del Method 02/21/24 19:47 Room Air 02/21/24 19:37 Room Air 02/21/24 19:21 Room Air 02/21/24 19:09 Room Air Laboratory Results Abnormal lab results 02/21/24 Range/Units 19:34 RBC 3.93 L (4.70-6.10) M/uL Hgb 12.1 L (14.0-18.0) g/dl Hct 36.9 L (42.0-52.0) % Howell # (Auto) 0.84 H (0.11-0.59) K/uL Sodium 135 L (136-145) mmol/L BUN 26 H (6-23) mg/dl Creatinine 1.75 H (0.6-1.4) mg/dl Glucose 107 H (70-99(Fasting)) mg/dl Magnesium 0.8 L* (1.7-2.4) mg/dl ECG Additional Comments: ECG revealed normal sinus rhythm at 65 bpm; QTc 380 Code Status & VTE Plan Code Status Full code VTE Prophylaxis Plan VTE Prophylaxis will be ordered: Yes Supervising Physician Co-Signing Physician Notes Patient seen and examined, chart reviewed, case discussed with CORTES Hollins and I agree with the assessment and plan as above. Patient with longstanding history of hypomagnesemia presenting with the same. He has had previous admissions for hypomagnesemia. He recently had some medication changes - outlined above. He was taking his Magnesium supplement as directed - had a Mg checked on 02/18 and it was found to be low at 1.1. It was recommended that he take three tablets daily. He took three tablets yesterday on 02/19 with no issues. Today he took a pill this AM and a second one at 15:00. After his second pill he developed a single episode of watery diarrhea Patient follows with Nephrology - is scheduled to see them on Friday Exam is unremarkable +S1/S2, regular, no m/r/g Lungs - CTA Abd - soft, NT/ND Ext - warm, well perfused Labs and images reviewed Mg=0.8. Remainder of electrolytes are WNL Assessment/Plan -Continued resuscitation - received 2gm of Mg thus far. Will give additional 3 gm -Repeat Mg in AM and continue repletion -Will stop Protonix - uncertain if this is interfering with absorption. Trial of sucralfate -Spironolactone has been changed to Amiloride for Mg sparing - continue -Remainder as above PG Care Time/CCT Total # of Minutes Spent Total Time Spent with Patient: Total time spent is greater than 50% in coordination of care (as documented) at patient's floor/unit and/or counseling patient: Coding [place] [address] INT INP/OBS CARE 3/75MIN Patient Type Established Medical Decision Making High Complexity Diagnoses Hypomagnesemia E83.42 Diarrhea R19.7 Type 2 diabetes mellitus with diabetic nephropathy, without long-term current use of insulin E11.21 Diabetes mellitus junior loan processor insulin use: without junior loan processor use Diabetes mellitus type: type 2 Gastroesophageal reflux disease without esophagitis K21.9 Esophagitis presence: without esophagitis Aldosteronism E26.9 (3) Diabetes mellitus with diabetic nephropathy Diabetes mellitus care home insulin use: without junior loan processor use Diabetes mellitus type: type 2 Qualified Code(s): E11.21 - Type 2 diabetes mellitus with diabetic nephropathy (4) Gastroesophageal reflux disease Esophagitis presence: without esophagitis Qualified Code(s): K21.9 - Gastro- esophageal reflux disease without esophagitis
[2024-02-21] MEDS ORDERED: DEXTROSE 50% 50 ML SYRINGE IV PRN (22:31)
[2024-02-21] MEDS ORDERED: GLUCOSE 10 TAB/TUBE PO PRN (22:31)
[2024-02-21] MEDS ORDERED: ACETAMINOPHEN 325 MG TAB PO PRN (22:31)
[2024-02-21] MEDS ORDERED: ONDANSETRON INJ 2 MG/ML 2 ML VIAL IV PRN (22:31)
[2024-02-21] MEDS ORDERED: GLUCAGON FOR INJ 1 MG VIAL SQ PRN (22:31)
[2024-02-21] MEDS ORDERED: DICLOFENAC SOD 1% GEL 100 GM TUBE EXT PRN (22:31)
[2024-02-21] MEDS ORDERED: GLUCOSE 40% GEL 15 GM TUBE PO PRN (22:31)
[2024-02-21] MEDS ORDERED: CARBOHYDRATES FOR HYPOGLYCEMIA PO PRN (22:31)
[2024-02-21] MEDS ORDERED: LOPERAMIDE HCL 2 MG CAP PO PRN (22:31)
[2024-02-21 22:44] LABS: Appearance Urine Clear (Clear); Bilirubin Urine Negative (Negative); Blood Urine Negative (Negative); Color Urine Yellow; Glucose Urine UA Negative (Negative); Ketones Urine Trace (Negative); Leukocyte Esterase Urine Negative (Negative); Nitrite Urine Negative (Negative); Protein Urine Negative (Negative); Specific Gravity Urine 1.009 (1.000-1.030); Urobilinogen Urine Negative (Negative)
[2024-02-22 06:35] LABS: Basophils # (auto) 0.04 K/uL (0.00-0.20); Basophils % (auto) 0.6 %; Eosinophils # (auto) 0.28 K/uL (0.00-0.50); Eosinophils % (auto) 4.3 %; Hematocrit (blood only) 36.3 % (42.0-52.0); Hemoglobin 11.9 g/dl (14.0-18.0); Immature Granulocytes # (auto) 0.06 K/uL (0.01-0.20); Immature Granulocytes % (auto) 0.9 %; Lymphocytes # (auto) 1.67 K/uL (1.20-3.40); Lymphocytes % (auto) 25.5 %; Mean Corpuscular Hemoglobin 30.7 pg (25.0-34.0); Mean Corpuscular Hgb Conc 32.8 g/dL (32.0-36.0); Mean Corpuscular Volume 93.6 fL (80.0-100.0); Mean Platelet Volume 10.4 fL (9.4-12.4); Monocytes % (auto) 9.2 %; Neutrophils # (auto) 3.89 K/uL (1.40-6.50); Neutrophils % (auto) 59.5 %; Platelet Count 212 K/uL (130-400); RDW Coefficient of Variation 12.4 % (11.5-14.5); RDW Standard Deviation 42.7 fL (36.4-46.3); Red Blood Count 3.88 M/uL (4.70-6.10); White Blood Count 6.54 K/ul (4.8-10.8)
[2024-02-22 06:53] LABS: BUN Creatinine Ratio 12.2 (10-20); Calcium 8.6 mg/dl (8.6-10.3); Creatinine Clr Calc Pharmacy 47.3 ml/min; Est GFR (African American) 47.7 ml/min; Est GFR (Non-African American) 41.2 ml/min; Magnesium 2.2 mg/dl (1.7-2.4); Potassium 4.6 mmol/L (3.5-5.1)
--- NOTE | 2024-02-22 07:15 | Hospitalist Progress Note ---
Date of Service February 22, 2024 Assessment & Plan (1) Hypomagnesemia: Plan: Severe hypomagnesemia at 0.8 on arrival Two recent [place] admissions for similar Hx of hypomagnesemia and intermittent diarrhea x 3-4 years, with an acute worsening over the past 4 months Hypomagnesemia likely secondary to GI losses, poor absorption and perhaps renal losses Will hold PPI for now, consider H2 if needed Magnesium sulfate 1 g x 5 given Maintain K > 4 Continuous telemetry and watch for signs of SOB/bradycardia/Torsades Patient's FeMg spot urine earlier this month revealed 14% renal mag wasting with unclear etiology In the [employer] [place] [facility] there is incidental notation that SGLT2 inhibitors may improve refractory hypomagnesemia to this and we will try Jardiance as the patient has an indication as he is a diabetic. Reluctance to increase the amiloride as the patient's potassium is 4.6. Patient will bring in his own magnesium and begin returning to the supplementation of the magnesium lactate SR (2) Diarrhea: Plan: Episodes of intermittent, watery diarrhea; likely contributing cause of hypomagnesemia No mucus, blood, or recent antibiotic use Loperamide 2 mg p.o. q6h as needed Will defer stool PCR, as patient has reliable diarrhea when taking too much magnesium (?osmotic effect) Colonoscopy 06/21 only small diverticuli noted GERD pt on pantoprozole, can affect magnesium, will stop consier H2 if needed (3) Diabetes mellitus with diabetic nephropathy: Plan: Last A1c at 5.5% on 01/17/2024 Hold metformin, glimepiride; if diarrhea is the culprit, may recommend looking into metformin alternatives SSI; with target BSG range 110-140mg/dL, CF 45, carb ratio 15 T2DM diet BSG ACHS Adding Jardiance to her regimen at this time (4) Aldosteronism: Plan: Patient recently switched spironolactone to amiloride Plan Full code VTE PPx: Heparin 5000 units SQ q12h Admission and Anticipated Discharge Date Admission Date: February 21, 2024 Subjective Resting comfortably without complaints concerns of refractory hypomagnesemia once discharged are voiced Physical Exam Physical Exam: Awake alert appropriate Cardiac exam is regular lungs are clear no peripheral neuropathy is noted Results & Data Results & Data Vital Signs (Past 12 Hours) Vital Signs Temp Pulse Pulse Resp BP Pulse Ox Pulse Ox 02/22/24 07:07 71 02/22/24 03:09 97.9 F 62 18 102/63 93 02/22/24 00:41 69 02/22/24 00:05 97.9 F 65 18 145/76 H 93 02/21/24 22:41 71 18 124/75 97 02/21/24 22:31 66 18 124/75 97 02/21/24 22:31 97 02/21/24 21:05 61 18 126/80 96 02/21/24 20:36 63 02/21/24 19:47 63 18 134/78 97 02/21/24 19:37 18 98 02/21/24 19:21 O2 Del Method O2 Del Method 02/22/24 07:07 02/22/24 03:09 Room Air 02/22/24 00:41 02/22/24 00:05 Room Air 02/21/24 22:41 Room Air 02/21/24 22:31 Room Air 02/21/24 22:31 Room Air 02/21/24 21:05 Room Air 02/21/24 20:36 02/21/24 19:47 Room Air 02/21/24 19:37 Room Air 02/21/24 19:21 Room Air Laboratory Results Reviewed CBC reviewed chemistry Ordered repeat magnesium for the afternoon of 02/21 PG Care Time/CCT Total # of Minutes Spent Total Time Spent with Patient: Total time spent is greater than 50% in coordination of care (as documented) at patient's floor/unit and/or counseling patient: Coding Level of Care Code 12760 SUB INP/OBS CARE 3/50MIN Diagnoses Hypomagnesemia E83.42 Diarrhea R19.7 Type 2 diabetes mellitus with diabetic nephropathy, without long-term current use of insulin E11.21 Diabetes mellitus chcf insulin use: without chcf use Diabetes mellitus type: type 2 Aldosteronism E26.9 (3) Diabetes mellitus with diabetic nephropathy Diabetes mellitus terminal computer operator insulin use: without chcf use Diabetes mellitus type: type 2 Qualified Code(s): E11.21 - Type 2 diabetes mellitus with diabetic nephropathy
[2024-02-22] MEDS: INSULIN ASPART PER UNIT CHARGE SC SCH (09:19)
[2024-02-22] MEDS: ENALAPRIL MALEATE 10 MG TAB PO SCH (09:20)
[2024-02-22] MEDS: aMILoride HCL 5 MG TAB PO SCH (09:20)
[2024-02-22] MEDS: SUCRALFATE 1 GM TAB PO SCH (09:21)
[2024-02-22] MEDS: ATENOLOL 25 MG TABLET PO SCH (09:21)
[2024-02-22] MEDS: HEPARIN SOD 5,000 UNIT/0.5 ML VIAL SQ SCH (09:22)
[2024-02-22] MEDS: ATORVASTATIN 40 MG TAB PO SCH (12:47)
[2024-02-22] MEDS: ATORVASTATIN 20 MG TAB PO SCH (12:47)
[2024-02-22] MEDS ORDERED: EMPAGLIFLOZIN 10 MG TAB PO SCH (15:15)
--- NOTE | 2024-02-22 21:24 | Electrocardiogram Report ---
Test Reason : Blood Pressure : / mmHG Vent. Rate : 065 BPM Atrial Rate : 065 BPM P-R Int : 178 ms QRS Dur : 082 ms QT Int : 366 ms P-R-T Axes : 088 010 015 degrees QTc Int : 380 ms Normal sinus rhythm Possible Anterior infarct , age undetermined Abnormal ECG When compared with ECG of 11-FEB-2024 05:26, No significant change was found Confirmed by Yaya Kahn ([id number]) on 02/22/2024 9:23:52 PM Referred By: REFERRED SELF Confirmed By:Yaya Kahn
[2024-02-23 06:31] LABS: Basophils # (auto) 0.04 K/uL (0.00-0.20); Basophils % (auto) 0.6 %; Eosinophils # (auto) 0.28 K/uL (0.00-0.50); Eosinophils % (auto) 4.2 %; Hematocrit (blood only) 35.2 % (42.0-52.0); Hemoglobin 11.4 g/dl (14.0-18.0); Immature Granulocytes # (auto) 0.06 K/uL (0.01-0.20); Immature Granulocytes % (auto) 0.9 %; Lymphocytes # (auto) 1.76 K/uL (1.20-3.40); Lymphocytes % (auto) 26.2 %; Mean Corpuscular Hemoglobin 30.5 pg (25.0-34.0); Mean Corpuscular Hgb Conc 32.4 g/dL (32.0-36.0); Mean Corpuscular Volume 94.1 fL (80.0-100.0); Mean Platelet Volume 10.3 fL (9.4-12.4); Monocytes # (auto) 0.59 K/uL (0.11-0.59); Monocytes % (auto) 8.8 %; Neutrophils # (auto) 3.99 K/uL (1.40-6.50); Neutrophils % (auto) 59.3 %; Platelet Count 216 K/uL (130-400); RDW Coefficient of Variation 12.3 % (11.5-14.5); RDW Standard Deviation 42.8 fL (36.4-46.3); Red Blood Count 3.74 M/uL (4.70-6.10); White Blood Count 6.72 K/ul (4.8-10.8)
[2024-02-23 06:46] LABS: BUN Creatinine Ratio 14.1 (10-20); Calcium 8.8 mg/dl (8.6-10.3); Creatinine Clr Calc Pharmacy 42.1 ml/min; Est GFR (African American) 41.5 ml/min; Est GFR (Non-African American) 35.8 ml/min; Magnesium 1.7 mg/dl (1.7-2.4); Potassium 4.7 mmol/L (3.5-5.1)
--- NOTE | 2024-02-23 08:01 | Hospitalist Progress Note ---
Date of Service February 23, 2024 Assessment & Plan (1) Hypomagnesemia: Plan: Severe hypomagnesemia at 0.8 on arrival Two recent [place] admissions for similar Hx of hypomagnesemia and intermittent diarrhea x 3-4 years, with an acute worsening over the past 4 months Hypomagnesemia likely secondary to GI losses, poor absorption and perhaps renal losses Will hold PPI for now, transition to ppi Magnesium sulfate 1 g x 5 given Maintain K > 4 Continuous telemetry and watch for signs of SOB/bradycardia/Torsades Patient's FeMg spot urine earlier this month revealed 14% renal mag wasting with unclear etiology In the [facility] [place] [facility] there is incidental notation that SGLT2 inhibitors may improve refractory hypomagnesemia to this and we will try Jardiance as the patient has an indication as he is a diabetic. Reluctance to increase the amiloride as the patient's potassium is 4.6. Patient will bring in his own magnesium and begin returning to the supplementation of the magnesium lactate SR (2) Diarrhea: Plan: Episodes of intermittent, watery diarrhea; likely contributing cause of hypomagnesemia No mucus, blood, or recent antibiotic use Loperamide 2 mg p.o. q6h as needed Will defer stool PCR, as patient has reliable diarrhea when taking too much magnesium (?osmotic effect) Colonoscopy 06/21 only small diverticuli noted GERD pt on pantoprozole, can affect magnesium, will stop consier H2 if needed (3) Diabetes mellitus with diabetic nephropathy: Plan: Last A1c at 5.5% on 01/17/2024 Hold metformin, glimepiride; if diarrhea is the culprit, may recommend looking into metformin alternatives SSI; with target BSG range 110-140mg/dL, CF 45, carb ratio 15 T2DM diet BSG ACHS Adding Jardiance to her regimen at this time (4) Aldosteronism: Plan: Patient recently switched spironolactone to amiloride Plan Full code VTE PPx: Heparin 5000 units SQ q12h Admission and Anticipated Discharge Date Admission Date: February 21, 2024 Subjective Resting comfortably without complaints concerns of refractory hypomagnesemia once discharged are voiced Physical Exam Physical Exam: Awake alert appropriate Cardiac exam is regular lungs are clear no peripheral neuropathy is noted Results & Data Results & Data Vital Signs (Past 12 Hours) Vital Signs Temp Pulse Pulse Pulse Resp BP Pulse Ox 02/23/24 07:53 97.9 F 67 18 136/79 94 02/23/24 03:34 98.2 F 56 L 18 110/66 96 02/22/24 23:58 98.1 F 67 18 107/69 95 02/22/24 22:01 56 L 02/22/24 20:24 98.1 F 50 L 18 134/76 96 O2 Del Method 02/23/24 07:53 Room Air 02/23/24 03:34 Room Air 02/22/24 23:58 Room Air 02/22/24 22:01 02/22/24 20:24 Room Air Laboratory Results review cbc review chemistry PG Care Time/CCT Total # of Minutes Spent Total Time Spent with Patient: Total time spent is greater than 50% in coordination of care (as documented) at patient's floor/unit and/or counseling patient: Coding Level of Care Code 04267 SUB INP/OBS CARE 2/35MIN Diagnoses Hypomagnesemia E83.42 Diarrhea R19.7 Type 2 diabetes mellitus with diabetic nephropathy, without long-term current use of insulin E11.21 Diabetes mellitus half-way insulin use: without technician terminal and repeater use Diabetes mellitus type: type 2 Aldosteronism E26.9 (3) Diabetes mellitus with diabetic nephropathy Diabetes mellitus technician terminal and repeater insulin use: without half-way use Diabetes mellitus type: type 2 Qualified Code(s): E11.21 - Type 2 diabetes mellitus with diabetic nephropathy
[2024-02-23] MEDS: aMILoride HCL 5 MG TAB PO SCH (08:37)
[2024-02-23] MEDS: EMPAGLIFLOZIN 10 MG TAB PO SCH (08:38)
[2024-02-23] MEDS: MAGNESIUM SULFATE / D5W 1 GM/100 ML BAG IV SCH (08:44)
[2024-02-23] MEDS ORDERED: Nursing to Pharmacy Communication SCH (10:45)
[2024-02-23] MEDS ORDERED: LACTATE PO SCH ×2 (14:00→21:00)
[2024-02-23] MEDS ORDERED: MAGNESIUM PO SCH ×2 (14:00→21:00)
[2024-02-23] MEDS: FAMOTIDINE 20 MG TAB PO SCH (20:23)
[2024-02-23] MEDS: MAGNESIUM PO SCH (20:24)
[2024-02-23] MEDS: LACTATE PO SCH (20:24)
[2024-02-24 06:43] LABS: Basophils # (auto) 0.03 K/uL (0.00-0.20); Basophils % (auto) 0.4 %; Eosinophils # (auto) 0.23 K/uL (0.00-0.50); Eosinophils % (auto) 3.2 %; Hematocrit (blood only) 34.5 % (42.0-52.0); Hemoglobin 11.2 g/dl (14.0-18.0); Immature Granulocytes # (auto) 0.05 K/uL (0.01-0.20); Immature Granulocytes % (auto) 0.7 %; Lymphocytes # (auto) 1.77 K/uL (1.20-3.40); Lymphocytes % (auto) 24.7 %; Mean Corpuscular Hemoglobin 30.7 pg (25.0-34.0); Mean Corpuscular Hgb Conc 32.5 g/dL (32.0-36.0); Mean Corpuscular Volume 94.5 fL (80.0-100.0); Mean Platelet Volume 10.2 fL (9.4-12.4); Monocytes % (auto) 8.4 %; Neutrophils # (auto) 4.49 K/uL (1.40-6.50); Neutrophils % (auto) 62.6 %; Platelet Count 229 K/uL (130-400); RDW Coefficient of Variation 12.1 % (11.5-14.5); RDW Standard Deviation 42.2 fL (36.4-46.3); Red Blood Count 3.65 M/uL (4.70-6.10); White Blood Count 7.17 K/ul (4.8-10.8)
[2024-02-24 07:04] LABS: BUN Creatinine Ratio 17.2 (10-20); Calcium 8.6 mg/dl (8.6-10.3); Creatinine Clr Calc Pharmacy 41.9 ml/min; Est GFR (Non-African American) 35.4 ml/min; Magnesium 1.8 mg/dl (1.7-2.4); Potassium 4.8 mmol/L (3.5-5.1)
--- NOTE | 2024-02-24 17:38 | Nephrology Consultation ---
Date of Consultation February 24, 2024 Assessment & Plan (1) Hypomagnesemia: Serum magnesium normalized with IV administration provided by hospitalist service. Magnesium lactate 84 mg BID has been resumed. Prospective monitoring ordered with follow up blood work tomorrow. Check phosphorus with next blood work. Past evaluation suggested urine wasting. Amiloride 5 mg daily was added. Jardiance started this admission. Follow up 24 hour urine has been requested but can be coordinated as an outpatient as well. Contributing history includes metformin, PPI use, and chronic diarrhea. Ability to tolerate PO magnesium supplements remains a concern. Henri remains on amiloride 5 mg daily and Jardiance 10 mg daily. No oral magnesium supplement is currently ordered. (2) CKD (chronic kidney disease): CKD attributed to hypertension and DKD. Creatinine stable. No monoclonal process identified on prior evaluation. Outpatient follow up to be arranged at discharge. (3) Diabetes mellitus with diabetic nephropathy: Started on Jardiance 10 mg daily. Metformin may contribute to chronic hypomagnesemia and diarrhea. Consider stopping the medication. (4) Hypertension: BP controlled with enalapril. Volume status acceptable. Avoid diuretics. Atenolol held due to low HR and acceptable BP. (5) Gastroesophageal reflux disease: Pantoprazole switched to famotidine. Sucralfate has also been provided. History of Present Illness Reason for Consultation: hypomagnesemia Requesting Physician: Isaak Mccarthy Attending Physician: Isaak Mccarthy History of Present Illness Henri Granado is a 73-year-old male with diabetes mellitus, hypertension, obesity, GERD, and hypomagnesemia. He has a history of resistant hypertension. He has a history of a slight M spike on SPEP. He has chronic hypomagnesemia. Prior evaluation suggested urine magnesium wasting (random U mag 109 mg/g, U creat 70 mg/dL, S mag 1.7 mg/dL, S creat 1.48 mg/dL). On follow up testing, there was no change or development of progressive globulinemia. I maintain a low suspicion for MGRS or other plasma cell disorder affecting the kidneys. Immunofixation demonstrate a small band in IgM lambda in the past but more recently IgM K with very slight increase in alpha globulins on SPEP. UPEP by history showed non selective proteinuria. There is no other clinical evidence of paraproteinemia and no significant change overall in proteinuria. Henri has not had hypophosphatemia or NAGMA. Kidney function has been fairly stable with serum creatinine ~1.8 mg/dL. Henri has had 3 recent admissions to [facility] with symptomatic hypomagnesemia. Serum magnesium had been well controlled with daily use of Super Mag supplement while taking spironolactone for the past couple of years. He had been maintained on pantoprazole and metformin chronically. He has an Rx for furosemide PRN but had not taken the medication. Henri started a new diet in mid September to help mitigate recent weight gain. He then developed chronic diarrhea. However, this has recently improved. He returned to the [facility] [place] [facility] in December for evaluation of hypomagnesemia. At that time, his PPI was weaned and Super Mag was switched to Slow Mag. Henri has had 3 hospitalizations at [facility] this month, during the most recent prior hospitalization, he was switched to Magnesium lactate 84 mg BID which was increased to 84 mg TID prior to admission. His PPI was switched to famotidine. He was started on amiloride 5 mg daily. He states that he was able to tolerate Mag lactate twice daily without diarrhea. He developed loose stool after increasing to TID for once day. He was admitted to [facility] from January 31-, February 09-, and most recently on February 20. Laboratory studies note a history of stable renal function with mild chronic hyponatremia. Potassium 4.8 mmol/L. Allergies Allergy/AdvReac Type Severity Reaction Status Date / Time No Known Allergies Allergy Verified 02/21/24 20:16 Home Medications Medication Instructions Recorded Confirmed Type blood sugar diagnostic ([email or web address] #10 ea 06/24/19 02/20/24 History Ultra Blue Test Strip) cholecalciferol (vitamin D3) 25 3,000 units PO QDL 06/24/19 02/21/24 History mcg (1,000 unit) capsule lancets 33 gauge ([email or web address] Delica #100 ea 06/24/19 02/20/24 History Lancets) furosemide 20 mg tablet 20 mg PO DAILY PRN edema #90 tabs 07/16/22 02/21/24 Rx krill 500 mg-omega-3 150 mg-dha 45 1 cap PO QDL 05/28/23 02/21/24 History mg-epa 75 [id number] capsule (krill oil) vitamin B complex 1 cap PO QPM 05/28/23 02/21/24 History ramipril 10 mg capsule 10 mg PO BID #180 caps 07/02/23 02/21/24 Rx diclofenac sodium 1 % topical gel 4 g topical QID PRN Joint Pain 90 07/04/23 02/21/24 Rx days #300 grams glimepiride 1 mg tablet 1 mg PO BID #180 tabs 01/19/24 02/21/24 Rx atenolol 50 mg tablet 25 mg PO QAM 02/01/24 02/21/24 History atorvastatin 20 mg tablet 20 mg PO QDL 02/01/24 02/21/24 History atorvastatin 40 mg tablet 40 mg PO QDL 02/01/24 02/21/24 History loperamide 2 mg capsule 2 mg PO Q6 PRN diarrhea #45 caps 02/03/24 02/21/24 Rx pantoprazole 40 mg tablet,delayed 40 mg PO QAM 02/10/24 02/21/24 History release amiloride 5 mg tablet 5 mg PO DAILY #90 tabs 02/20/24 02/21/24 Rx magnesium L-lactate 84 mg 84 mg PO TID #90 tabs 02/20/24 02/21/24 Rx tablet,extended release metformin 500 mg tablet,extended 500 mg PO BID #180 tabs 02/20/24 02/21/24 Rx release 24 hr flaxseed oil 1,000 mg capsule 1,000 mg PO QDL 02/21/24 02/21/24 History Patient History Surgical History No significant past surgical history Family History Father Congestive heart failure Mother Coronary heart disease Myocardial infarction Type 2 diabetes mellitus Brother Essential hypertension Sister Myocardial infarction Denies family history of Ovarian cancer Prostate cancer Kidney disease Breast cancer Colorectal cancer Social History Smoking Status: Never smoker Tobacco Type: Cigarettes Age Started Using Tobacco: 21; Second Hand Exposure: No; Do You Dip or Chew Tobacco: No; Hx Alcohol Use: No Hx Substance Use: No Preferred Language: French Communication Ability: Effective Visual Impairment: No Limitations Hearing Ability: Normal Movie Machine Operator Required: No Beliefs That Will Affect Care: None marital status: Single Current Living Situation: Family Current Living Situation Comment: home with sister and brother in law current occupational status: retired Feels Safe at Home: Yes Childhood Exposure to Second-Hand Smoke: No Diet: regular caffeine: Yes during the past year weight has: remained stable Dental Care, Regularly: Yes Physical Activity Frequency: Does not Exercise Seatbelt Use: always Sunscreen Use: No Assistive Devices: Cane Review of Systems Review of Systems: All systems reviewed & are unremarkable except as noted in HPI & below Physical Exam Constitutional: well developed; no acute distress Eyes: no scleral abnormality and no corneal abnormality ENMT: Mouth: no oral mucosal abnormality and oral mucous membranes not dry Neck: normal visual inspection and trachea midline Respiratory: normal respiratory effort Auscultation: lungs clear to auscultation bilaterally Cardiovascular: Rate/Rhythm: regular rate Heart Sounds: normal S1 and normal S2 Extremities: no edema Musculoskeletal: Extremities: no cyanosis and no clubbing Skin: normal turgor; no lesions Neurologic: Motor/Sensory: no tremor and no asterixis Psychiatric: Orientation: alert and oriented x 3 Results & Data Vital Signs (Past 12 Hours) Vital Signs Temp Pulse Pulse Resp BP Pulse Ox O2 Del Method 02/24/24 15:42 36.9 C 66 18 120/74 92 Room Air 02/24/24 15:00 59 L 02/24/24 11:08 36.7 C 68 18 130/82 94 Room Air 02/24/24 08:00 Room Air 02/24/24 07:48 36.8 C 77 16 129/77 98 Room Air 02/24/24 07:00 58 L Laboratory Results Laboratory Results - last 24 hr 02/23/24 02/24/24 02/24/24 20:04 06:09 08:06 WBC 7.17 RBC 3.65 L Hgb 11.2 L Hct 34.5 L MCV 94.5 MCH 30.7 MCHC 32.5 RDW Std Deviation 42.2 RDW Coeff of Jonathan 12.1 Plt Count 229 MPV 10.2 Immature Gran % (Auto) 0.7 Neut % (Auto) 62.6 Lymph % (Auto) 24.7 Cole % (Auto) 8.4 Eos % (Auto) 3.2 Baso % (Auto) 0.4 Neut # (Auto) 4.49 Lymph # (Auto) 1.77 Cole # (Auto) 0.60 H Eos # (Auto) 0.23 Baso # (Auto) 0.03 Immature Gran # (Auto) 0.05 Sodium 136 Potassium 4.8 Chloride 106 Carbon Dioxide 22 Anion Gap 8 BUN 32 H Creatinine 1.86 H Est Cr Clr Drug Dosing 41.9 Est GFR ( Amer) 41.0 Est GFR (Non-Af Amer) 35.4 BUN/Creatinine Ratio 17.2 Glucose 99 POC Glucose 130 H 106 H Calcium 8.6 Magnesium 1.8 02/24/24 02/24/24 11:48 17:04 WBC RBC Hgb Hct MCV MCH MCHC RDW Std Deviation RDW Coeff of Jonathan Plt Count MPV Immature Gran % (Auto) Neut % (Auto) Lymph % (Auto) Cole % (Auto) Eos % (Auto) Baso % (Auto) Neut # (Auto) Lymph # (Auto) Cole # (Auto) Eos # (Auto) Baso # (Auto) Immature Gran # (Auto) Sodium Potassium Chloride Carbon Dioxide Anion Gap BUN Creatinine Est Cr Clr Drug Dosing Est GFR ( Amer) Est GFR (Non-Af Amer) BUN/Creatinine Ratio Glucose POC Glucose 117 H 106 H Calcium Magnesium PG Care Time/CCT Total # of Minutes Spent Total Time Spent with Patient: Total time spent is greater than 50% in coordination of care (as documented) at patient's floor/unit and/or counseling patient: Coding Level of Care Code 96205 IN/OBS CONSULT LVL 4,60M Diagnoses Hypomagnesemia E83.42 CKD (chronic kidney disease) N18.9 Type 2 diabetes mellitus with diabetic nephropathy, without long-term current use of insulin E11.21 Diabetes mellitus terminal operations supervisor insulin use: without terminal operations supervisor use Diabetes mellitus type: type 2 Essential hypertension I10 Hypertension type: essential hypertension Gastroesophageal reflux disease without esophagitis K21.9 Esophagitis presence: without esophagitis (3) Diabetes mellitus with diabetic nephropathy Diabetes mellitus terminal operations supervisor insulin use: without terminal operations supervisor use Diabetes mellitus type: type 2 Qualified Code(s): E11.21 - Type 2 diabetes mellitus with diabetic nephropathy (4) Hypertension Hypertension type: essential hypertension Qualified Code(s): I10 - Essential (primary) hypertension (5) Gastroesophageal reflux disease Esophagitis presence: without esophagitis Qualified Code(s): K21.9 - Gastro- esophageal reflux disease without esophagitis
[2024-02-24] MEDS: ATENOLOL 25 MG TABLET PO ONE (20:36)
--- NOTE | 2024-02-24 20:37 | Hospitalist Progress Note ---
Date of Service February 24, 2024 Assessment & Plan (1) Hypomagnesemia: Plan: Severe hypomagnesemia at 0.8 on arrival Two recent [place] admissions for similar Hx of hypomagnesemia and intermittent diarrhea x 3-4 years, with an acute worsening over the past 4 months Hypomagnesemia likely secondary to GI losses, poor absorption and perhaps renal losses Will hold PPI for now, transition to ppi Magnesium sulfate 1 g x 5 given Maintain K > 4 Continuous telemetry and watch for signs of SOB/bradycardia/Torsades Patient's FeMg spot urine earlier this month revealed 14% renal mag wasting with unclear etiology In the [employer] [place] [facility] there is incidental notation that SGLT2 inhibitors may improve refractory hypomagnesemia to this and we will try Jardiance as the patient has an indication as he is a diabetic. Reluctance to increase the amiloride as the patient's potassium is 4.6. Patient will bring in his own magnesium and begin returning to the supplementation of the magnesium lactate SR Magnesium appears to be stable, will recheck and consult nephrology to ensure gameplan established. (2) Diarrhea: Plan: Episodes of intermittent, watery diarrhea; likely contributing cause of hypomagnesemia No mucus, blood, or recent antibiotic use Loperamide 2 mg p.o. q6h as needed Will defer stool PCR, as patient has reliable diarrhea when taking too much magnesium (?osmotic effect) Colonoscopy 06/21 only small diverticuli noted GERD pt on pantoprozole, can affect magnesium, will stop consier H2 if needed (3) Diabetes mellitus with diabetic nephropathy: Plan: Last A1c at 5.5% on 01/17/2024 Hold metformin, glimepiride; if diarrhea is the culprit, may recommend looking into metformin alternatives SSI; with target BSG range 110-140mg/dL, CF 45, carb ratio 15 T2DM diet BSG ACHS Adding Jardiance to her regimen at this time (4) Aldosteronism: Plan: Patient recently switched spironolactone to amiloride Plan Full code VTE PPx: Heparin 5000 units SQ q12h Admission and Anticipated Discharge Date Admission Date: February 21, 2024 Subjective 73 yo male reports no new symp[toms Review of Systems Review of Systems: All systems reviewed & are unremarkable except as noted in HPI & below Physical Exam Physical Exam: Awake alert appropriate Cardiac exam is regular lungs are clear no peripheral neuropathy is noted Results & Data Results & Data Vital Signs (Past 12 Hours) Vital Signs Temp Pulse Pulse Resp BP Pulse Ox O2 Del Method 02/24/24 19:08 36.9 C 70 18 105/66 93 Room Air 02/24/24 15:42 36.9 C 66 18 120/74 92 Room Air 02/24/24 15:00 59 L 02/24/24 11:08 36.7 C 68 18 130/82 94 Room Air PG Care Time/CCT Total # of Minutes Spent Total Time Spent with Patient: Total time spent is greater than 50% in coordination of care (as documented) at patient's floor/unit and/or counseling patient: Coding Level of Care Code 98132 SUB INP/OBS CARE 2/35MIN Diagnoses Hypomagnesemia E83.42 Diarrhea R19.7 Type 2 diabetes mellitus with diabetic nephropathy, without long-term current use of insulin E11.21 Diabetes mellitus intermodal customer service insulin use: without senior care use Diabetes mellitus type: type 2 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
[2024-02-25 07:30] LABS: Albumin Level 3.7 gm/dl (3.4-5.0); BUN Creatinine Ratio 17.4 (10-20); Calcium 8.8 mg/dl (8.6-10.3); Creatinine Clr Calc Pharmacy 35.6 ml/min; Est GFR (African American) 33.8 ml/min; Est GFR (Non-African American) 29.2 ml/min; Magnesium 1.8 mg/dl (1.7-2.4); Potassium 4.8 mmol/L (3.5-5.1)
[2024-02-25] MEDS: PLASMA-LYTE A 500 ML IV ONE (10:03)
--- NOTE | 2024-02-25 10:35 | Nephrology Progress Note ---
Date of Service February 25, 2024 Assessment & Plan (1) Hypomagnesemia: Plan: Serum magnesium stable at 1.8. Continue Magnesium lactate 84 mg BID. Prospective monitoring ordered with follow up blood work this afternoon. Past evaluation suggested urine wasting. Continue amiloride 5 mg daily and Jardiance 10 mg daily. Follow up 24 hour urine will be coordinated as an outpatient. Contributing history includes metformin, PPI use, and chronic diarrhea. Ability to tolerate PO magnesium supplements remains a concern. PPI and metformin will both be held. (2) CKD (chronic kidney disease): Plan: CKD attributed to hypertension and DKD. Creatinine slightly elevated this AM. I suspect this is related to Jardiance. Will provide a bolus of 500 ml plasma-lyte and encourage PO fluids. Metabolic profile will be rechecked this afternoon. If creatinine stable/improved, consider discharge with close outpatient follow up. I discussed the plan of care with Dr. Mccarthy this AM. Blood work should be repeated prior to the weekend. I would also like serum magnesium levels to be checked weekly. No monoclonal process identified on prior evaluation. Outpatient follow up to be arranged with me at discharge. (3) Diabetes mellitus with diabetic nephropathy: Plan: Started on Jardiance 10 mg daily. Metformin may contribute to chronic hypomagnesemia and diarrhea. I would encourage that the medication be held. (4) Hypertension: Plan: BP reasonably controlled with enalapril. Atenolol 25 mg provided yesterday - noted asymptomatic bradycardia with the medication. Atenolol held this AM due to low heart rate. Volume status acceptable. Avoid diuretics. (5) Gastroesophageal reflux disease: Plan: Pantoprazole switched to famotidine. Sucralfate has also been provided. Admission and Anticipated Discharge Date Admission Date: February 21, 2024 Subjective No acute events overnight. Henri feels well this AM. No diarrhea or GI symptoms reported. Appetite is good. Tolerating PO fluids well. No fluid retention or edema. Review of Systems Review of Systems: All systems reviewed & are unremarkable except as noted in HPI & below Physical Exam Constitutional: well developed; no acute distress Eyes: no scleral abnormality and no corneal abnormality ENMT: Mouth: no oral mucosal abnormality and oral mucous membranes not dry Neck: normal visual inspection and trachea midline Respiratory: normal respiratory effort Cardiovascular: Rate/Rhythm: regular rate Heart Sounds: normal S1 and normal S2 Extremities: no edema Musculoskeletal: Extremities: no cyanosis and no clubbing Skin: normal turgor; no lesions Neurologic: Motor/Sensory: no tremor and no asterixis Psychiatric: Orientation: alert and oriented x 3 Results & Data Vital Signs (Past 12 Hours) Vital Signs Temp Pulse Pulse Resp BP BP Pulse Ox 02/25/24 07:51 36.3 C L 56 L 18 118/66 92 02/25/24 07:17 55 L 02/25/24 03:05 36.9 C 61 20 110/67 95 02/24/24 23:45 36.7 C 57 L 20 125/74 96 O2 Del Method 02/25/24 07:51 Room Air 02/25/24 07:17 02/25/24 03:05 Room Air 02/24/24 23:45 Room Air Laboratory Results Laboratory Results - last 24 hr 02/24/24 02/24/24 02/24/24 11:48 17:04 20:05 Sodium Potassium Chloride Carbon Dioxide Anion Gap BUN Creatinine Est Cr Clr Drug Dosing Est GFR ( Amer) Est GFR (Non-Af Amer) BUN/Creatinine Ratio Glucose POC Glucose 117 H 106 H 140 H Calcium Phosphorus Magnesium Albumin 02/25/24 02/25/24 05:57 08:09 Sodium 136 Potassium 4.8 Chloride 105 Carbon Dioxide 22 Anion Gap 9 BUN 38 H Creatinine 2.18 H D Est Cr Clr Drug Dosing 35.6 Est GFR ( Amer) 33.8 Est GFR (Non-Af Amer) 29.2 BUN/Creatinine Ratio 17.4 Glucose 100 H POC Glucose 120 H Calcium 8.8 Phosphorus 4.0 Magnesium 1.8 Albumin 3.7 PG Care Time/CCT Total # of Minutes Spent Total Time Spent with Patient: Total time spent is greater than 50% in coordination of care (as documented) at patient's floor/unit and/or counseling patient: Coding Level of Care Code 66916 SUB INP/OBS CARE 3/50MIN Diagnoses Hypomagnesemia E83.42 CKD (chronic kidney disease) N18.9 Type 2 diabetes mellitus with diabetic nephropathy, without long-term current use of insulin E11.21 Diabetes mellitus type: type 2 Diabetes mellitus terminal operator insulin use: without halfway use Essential hypertension I10 Hypertension type: essential hypertension Gastroesophageal reflux disease without esophagitis K21.9 Esophagitis presence: without esophagitis (3) Diabetes mellitus with diabetic nephropathy Diabetes mellitus type: type 2 Diabetes mellitus halfway insulin use: without halfway use Qualified Code(s): E11.21 - Type 2 diabetes mellitus with diabetic nephropathy (4) Hypertension Hypertension type: essential hypertension Qualified Code(s): I10 - Essential (primary) hypertension (5) Gastroesophageal reflux disease Esophagitis presence: without esophagitis Qualified Code(s): K21.9 - Gastro- esophageal reflux disease without esophagitis
[2024-02-25 15:01] LABS: Creatinine Clr Calc Pharmacy 33.1 ml/min; Est GFR (Non-African American) 26.8 ml/min; Magnesium 1.8 mg/dl (1.7-2.4); Potassium 4.9 mmol/L (3.5-5.1)
[2024-02-25] MEDS: LACTATED RINGER'S 1,000 ML IV SCH (16:01)
[2024-02-25] MEDS ORDERED: Nursing to Pharmacy Communication SCH (17:00)
[2024-02-25] MEDS: FAMOTIDINE 20 MG TAB PO SCH (17:09)
[2024-02-25] MEDS: SUCRALFATE 1 GM TAB PO SCH (17:10)
--- NOTE | 2024-02-25 22:14 | Hospitalist Progress Note ---
Date of Service February 25, 2024 Assessment & Plan (1) Hypomagnesemia: Plan: Severe hypomagnesemia at 0.8 on arrival Two recent [place] admissions for similar Hx of hypomagnesemia and intermittent diarrhea x 3-4 years, with an acute worsening over the past 4 months Hypomagnesemia likely secondary to GI losses, poor absorption and perhaps renal losses Will hold PPI for now, transition to ppi Magnesium sulfate 1 g x 5 given Maintain K > 4 Continuous telemetry and watch for signs of SOB/bradycardia/Torsades Patient's FeMg spot urine earlier this month revealed 14% renal mag wasting with unclear etiology In the [employer] [place] of [employer] there is incidental notation that SGLT2 inhibitors may improve refractory hypomagnesemia to this and we will try Jardiance as the patient has an indication as he is a diabetic. Reluctance to increase the amiloride as the patient's potassium is 4.6. Patient will bring in his own magnesium and begin returning to the supplementation of the magnesium lactate SR Magnesium appears to be stable, will recheck and consult nephrology to ensure gameplan established. Jardiance can cause a temporary worsening of his GFR. will monitor. Magnesium is at goal. (2) Diarrhea: Plan: Episodes of intermittent, watery diarrhea; likely contributing cause of hypomagnesemia No mucus, blood, or recent antibiotic use Loperamide 2 mg p.o. q6h as needed Will defer stool PCR, as patient has reliable diarrhea when taking too much magnesium (?osmotic effect) Colonoscopy 06/21 only small diverticuli noted GERD pt on pantoprozole, can affect magnesium, will stop consier H2 if needed (3) Diabetes mellitus with diabetic nephropathy: Plan: Last A1c at 5.5% on 01/17/2024 Hold metformin, glimepiride; if diarrhea is the culprit, may recommend looking into metformin alternatives SSI; with target BSG range 110-140mg/dL, CF 45, carb ratio 15 T2DM diet BSG ACHS Adding Jardiance to her regimen at this time (4) Aldosteronism: Plan: Patient recently switched spironolactone to amiloride Plan Full code VTE PPx: Heparin 5000 units SQ q12h Admission and Anticipated Discharge Date Admission Date: February 21, 2024 Subjective 73 yo male reports no new symptoms. Review of Systems Review of Systems: All systems reviewed & are unremarkable except as noted in HPI & below Physical Exam Physical Exam: Awake alert appropriate Cardiac exam is regular lungs are clear no peripheral neuropathy is noted Results & Data Results & Data Vital Signs (Past 12 Hours) Vital Signs Temp Pulse Pulse Resp BP BP Pulse Ox 02/25/24 19:35 37 C 63 17 97/61 L 95 02/25/24 16:24 36.6 C 60 18 105/58 L 94 02/25/24 16:12 58 L 02/25/24 11:03 36.6 C 56 L 18 108/65 93 O2 Del Method 02/25/24 19:35 Room Air 02/25/24 16:24 Room Air 02/25/24 16:12 02/25/24 11:03 Room Air PG Care Time/CCT Total # of Minutes Spent Total Time Spent with Patient: Total time spent is greater than 50% in coordination of care (as documented) at patient's floor/unit and/or counseling patient: Coding Level of Care Code 61365 SUB INP/OBS CARE 2/35MIN Diagnoses Hypomagnesemia E83.42 Diarrhea R19.7 Type 2 diabetes mellitus with diabetic nephropathy, without long-term current use of insulin E11.21 Diabetes mellitus intermodal dispatcher insulin use: without intermodal dispatcher use Diabetes mellitus type: type 2 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
[2024-02-26 06:24] LABS: BUN Creatinine Ratio 16.7 (10-20); Calcium 8.8 mg/dl (8.6-10.3); Creatinine Clr Calc Pharmacy 36.9 ml/min; Est GFR (African American) 35.4 ml/min; Est GFR (Non-African American) 30.5 ml/min; Magnesium 1.9 mg/dl (1.7-2.4); Potassium 5.8 mmol/L (3.5-5.1)
[2024-02-26 09:44] LABS: Hematocrit (blood only) 36.4 % (42.0-52.0); Hemoglobin 11.9 g/dl (14.0-18.0); Mean Corpuscular Hemoglobin 31.1 pg (25.0-34.0); Mean Corpuscular Hgb Conc 32.7 g/dL (32.0-36.0); Mean Platelet Volume 10.4 fL (9.4-12.4); Platelet Count 205 K/uL (130-400); RDW Coefficient of Variation 12.4 % (11.5-14.5); RDW Standard Deviation 43.1 fL (36.4-46.3); Red Blood Count 3.83 M/uL (4.70-6.10); White Blood Count 8.03 K/ul (4.8-10.8)
--- NOTE | 2024-02-26 10:25 | Nephrology Progress Note ---
Date of Service February 26, 2024 Assessment & Plan (1) Hypomagnesemia: Plan: Serum magnesium stable. Continue Magnesium lactate 84 mg BID. Continue Jardiance 10 mg daily. Samples provided. Due to elevated potassium, decrease amiloride to 5 mg every other day. I discussed the plan of care with Dr. Mccarthy this AM. Low potassium diet reviewed with Henri this AM. Repeat labs on Friday. Follow up 24 hour urine will be coordinated as an outpatient. Contributing history includes metformin, PPI use, and chronic diarrhea. Diarrhea improved. PPI and metformin will both be held. (2) CKD (chronic kidney disease): Plan: CKD attributed to hypertension and DKD. Creatinine slightly elevated after starting SGLT2i but stable. Close outpatient follow up will be arranged with me in the nephrology clinic. I have requested a clinic for next week. Serum metabolic profile and magnesium will be monitored weekly. Prospective monitoring will be arranged for monoclonal clonal abnormality. (3) Diabetes mellitus with diabetic nephropathy: Plan: Started on Jardiance 10 mg daily. Metformin held. (4) Hypertension: Plan: BP reasonably controlled with enalapril. Atenolol held due to low heart rate. Volume status acceptable. Avoid diuretics. (5) Gastroesophageal reflux disease: Plan: Pantoprazole switched to famotidine. Sucralfate has also been provided. Admission and Anticipated Discharge Date Admission Date: February 21, 2024 Subjective No acute events overnight. Henri feels well this AM. No GI symptoms reported. Denies fluid retention or edema. BP remains acceptable. Review of Systems Review of Systems: All systems reviewed & are unremarkable except as noted in HPI & below Physical Exam Constitutional: well developed; no acute distress Eyes: no scleral abnormality and no corneal abnormality ENMT: Mouth: no oral mucosal abnormality and oral mucous membranes not dry Neck: normal visual inspection and trachea midline Respiratory: normal respiratory effort Auscultation: lungs clear to auscultation bilaterally Cardiovascular: Rate/Rhythm: regular rate Heart Sounds: normal S1 and normal S2 Extremities: no edema Musculoskeletal: Extremities: no cyanosis and no clubbing Skin: normal turgor; no lesions Neurologic: Motor/Sensory: no tremor and no asterixis Psychiatric: Orientation: alert and oriented x 3 Results & Data Vital Signs (Past 12 Hours) Vital Signs Temp Pulse Pulse Resp BP BP Pulse Ox 02/26/24 08:27 36.5 C 79 18 126/82 95 05/30/24 07:06 70 02/26/24 03:42 36.3 C L 80 13 92/60 L 96 02/26/24 00:57 57 L 02/25/24 23:44 36.4 C L 56 L 12 107/70 94 O2 Del Method 02/26/24 08:27 Room Air 02/26/24 07:06 02/26/24 03:42 Room Air 02/26/24 00:57 02/25/24 23:44 Room Air Laboratory Results Laboratory Results - last 24 hr 02/25/24 02/25/24 02/25/24 12:05 14:32 17:16 WBC RBC Hgb Hct MCV MCH MCHC RDW Std Deviation RDW Coeff of Jonathan Plt Count MPV Sodium 133 L Potassium 4.9 Chloride 103 Carbon Dioxide 24 Anion Gap 6 BUN 35 H Creatinine 2.34 H Est Cr Clr Drug Dosing 33.1 Est GFR ( Amer) 31.0 Est GFR (Non-Af Amer) 26.8 BUN/Creatinine Ratio 15.0 Glucose 100 H POC Glucose 99 99 Calcium 9.0 Magnesium 1.8 02/25/24 02/26/24 02/26/24 20:27 05:50 08:09 WBC 8.03 RBC 3.83 L Hgb 11.9 L Hct 36.4 L MCV 95.0 MCH 31.1 MCHC 32.7 RDW Std Deviation 43.1 RDW Coeff of Jonathan 12.4 Plt Count 205 MPV 10.4 Sodium 135 L Potassium 5.8 H Chloride 105 Carbon Dioxide 24 Anion Gap 6 BUN 35 H Creatinine 2.10 H Est Cr Clr Drug Dosing 36.9 Est GFR ( Amer) 35.4 Est GFR (Non-Af Amer) 30.5 BUN/Creatinine Ratio 16.7 Glucose 105 H POC Glucose 116 H 103 H Calcium 8.8 Magnesium 1.9 02/26/24 09:37 WBC RBC Hgb Hct MCV MCH MCHC RDW Std Deviation RDW Coeff of Jonathan Plt Count MPV Sodium Potassium 5.1 Chloride Carbon Dioxide Anion Gap BUN Creatinine Est Cr Clr Drug Dosing Est GFR ( Amer) Est GFR (Non-Af Amer) BUN/Creatinine Ratio Glucose POC Glucose Calcium Magnesium PG Care Time/CCT Total # of Minutes Spent Total Time Spent with Patient: Total time spent is greater than 50% in coordination of care (as documented) at patient's floor/unit and/or counseling patient: Coding Level of Care Code 34447 SUB INP/OBS CARE MIN Diagnoses Hypomagnesemia E83.42 CKD (chronic kidney disease) N18.9 Type 2 diabetes mellitus with diabetic nephropathy, without long-term current use of insulin E11.21 Diabetes mellitus type: type 2 Diabetes mellitus 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 insulin use: without 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 use Essential hypertension I10 Hypertension type: essential hypertension Gastroesophageal reflux disease without esophagitis K21.9 Esophagitis presence: without esophagitis (3) Diabetes mellitus with diabetic nephropathy Diabetes mellitus type: type 2 Diabetes mellitus 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 insulin use: without 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 use Qualified Code(s): E11.21 - Type 2 diabetes mellitus with diabetic nephropathy (4) Hypertension Hypertension type: essential hypertension Qualified Code(s): I10 - Essential (primary) hypertension (5) Gastroesophageal reflux disease Esophagitis presence: without esophagitis Qualified Code(s): K21.9 - Gastro- esophageal reflux disease without esophagitis
--- NOTE | 2024-02-26 12:23 | Electrocardiogram Report ---
Test Reason : Blood Pressure : / mmHG Vent. Rate : 056 BPM Atrial Rate : 056 BPM P-R Int : 186 ms QRS Dur : 102 ms QT Int : 408 ms P-R-T Axes : 047 024 026 degrees QTc Int : 393 ms Sinus bradycardia Otherwise normal ECG When compared with ECG of 21-FEB-2024 19:26, No significant change was found Confirmed by Carlo Davis ([id number]) on 02/26/2024 12:22:38 PM Referred By: REFERRED SELF Confirmed By:Carlo Davis
--- NOTE | 2024-02-26 15:16 | Discharge Summary ---
Date of Service February 26, 2024 Admission HPI Per Admitting Provider Henri is a 73-year-old male with PMH of diabetes, GERD, hypercholesteremia, HTN, and hypomagnesemia. He presented for weakness and numbness and tingling in his hands on 02/20. He reports 2 recent hospitalizations for hypomagnesemia within the past month. His issues with hypomagnesia have been going on for 3-4 years, and he has been taking magnesium supplements for that amount of time. He has had intermittent diarrhea over that period of time, but this began to worsen in September 2023. Then within the past 3 weeks is diarrhea became "unbearable". The patient went on a diet in September (eating half the number of calories). When he was discharged from the hospital on 02/10, his medications were reportedly switched up. His metformin was changed to 500 mg twice daily extended release, and his spironolactone was stopped and switched to amiodarone hide (as he was told that spironolactone tends to decrease magnesium). He was also switched on his magnesium supplementations from Mag64 to mag lactate 84 mg twice daily. He was doing well this week, but then developed diarrhea this afternoon and took Imodium around 3 PM. He did not have diarrhea at all this past week (solid stool), but then started again today. He reports that when this happens, he has liquidy stool (no mucus (no blood in stool/diarrhea. Light brown in color. No melena or dark tarry stool. No recent antibiotic use. No history of food allergies or lactose intolerance. No sick contacts. 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 Patient's vitals are stable at time of admission. ED course: Magnesium sulfate 1 g IV x 2 ROS: Patient endorses diarrhea, and neuropathy (in hands, but mostly in feet). Patient denies fever, chills, night-sweats, body aches, joint pain, dizziness, lightheadedness, ANDREWS, chest pain, chest palpitations, SOB, cough, abdominal pain, N/V, blood in diarrhea, blood in urine, or burning with urination. Principal Diagnosis hypomagnesemia Discharge Exam Awake alert appropriate Cardiac exam is regular lungs are clear no peripheral neuropathy is noted Discharge Data Allergies Allergy/AdvReac Type Severity Reaction Status Date / Time No Known Allergies Allergy Verified 02/21/24 20:16 Consultations 02/21/24 20:17 ED Decision to Admit Stat 02/24/24 15:26 Consult Nephrology Routine Hospital Course (1) Hypomagnesemia: Severe hypomagnesemia at 0.8 on arrival Two recent [place] admissions for similar Hx of hypomagnesemia and intermittent diarrhea x 3-4 years, with an acute worsening over the past 4 months Hypomagnesemia likely secondary to GI losses, poor absorption and perhaps renal losses Patient's FeMg spot urine earlier this month revealed 14% renal mag wasting with unclear etiology In the [employer] [employer] there is incidental notation that SGLT2 inhibitors may improve refractory hypomagnesemia to this and we will try Jardiance as the patient has an indication as he is a diabetic. Reluctance to increase the amiloride as the patient's potassium is 4.6. Patient will bring in his own magnesium and begin returning to the supplementation of the magnesium lactate SR Magnesium appeared stable with amiloride, stopping PPI and metformin. Potassium though was creeping upwards, will switch amiloride to every other day. WIll recommend rechecking BMP and mag next friday and friday. Creatinine did rise and this likely is from Jardiance as it can cause a temporary worsening of his GFR. Magnesium is at goal. will also hold vitamin D due to concern of hypomagnesemia. (2) Diarrhea: Episodes of intermittent, watery diarrhea; likely contributing cause of hypomagnesemia No mucus, blood, or recent antibiotic use Loperamide 2 mg p.o. q6h as needed Will defer stool PCR, as patient has reliable diarrhea when taking too much magnesium (?osmotic effect) Colonoscopy 06/21 only small diverticuli noted GERD pt on pantoprozole, can affect magnesium, will stop consier H2 if needed (3) Diabetes mellitus with diabetic nephropathy: Last A1c at 5.5% on 01/17/2024 Adding Jardiance to her regimen at this time (4) Aldosteronism: Patient recently switched spironolactone to amiloride Total Time Total Time Spent Total Time Spent (In Minutes): 32 Discharge Plan Discharge Items Patient Disposition: Home - Self-Care Reason For Visit: HYPOMAGNESEMIA, WEAKNESS Discharge Diagnosis: hypomagenesmia Activity: Resume your previous activity Non-emergency contact: Primary Care Provider Call non-emergency contact if: you have any medication questions Follow-up/Referrals: Hai Khan III, CRNP [Primary Care Provider] - 03/08/24 3:00 pm Diet: Carb Consistent or DM2 and Low Potassium (2gm) Ambulatory Orders: Basic Metabolic Panel (Routine) Timeframe: 20240301 Location: Determined by Patient Ordered By: Isaak Mccarthy Basic Metabolic Panel (Routine) Timeframe: 20240305 Location: Determined by Patient Ordered By: Isaak Mccarthy Magnesium (Routine) Timeframe: 20240301 Location: Determined by Patient Ordered By: Isaak Mccarthy Magnesium (Routine) Timeframe: 20240305 Location: Determined by Patient Ordered By: Isaak Arceo Attending Provider Instructions: You were seen for hypomagnesemia. We will recommend that you hold your metofrmin and pantoprazole. Your magnesium appears to finally be stable. WIll continue Magnesium lactate 84 mg BID. Also continue Jardiance 10 mg daily. Samples provided. Due to elevated potassium, we will decrease amiloride to 5 mg every other day. You will also be on a low potassium diet. Repeat labs on Friday. Followup with Nephrology as a n outpatient. Followup with PCP in 1-2 weeks. Pending Studies at Discharge: No Stand-Alone Forms: My [facility] [place], Smoking Cessation Medications and DC Order Prescriptions: New sucralfate 1 gram Tablet 1 g PO [id number] Qty: 60 0RF famotidine 20 mg Tablet 20 mg PO BID17 Qty: 60 0RF famotidine [Pepcid] 20 mg tablet 20 mg PO BID Qty: 180 0RF amiloride 5 mg tablet 5 mg PO Q OTHER DAY Qty: 45 0RF Jardiance 10 mg tablet 10 mg PO DAILY Qty: 90 0RF Continued furosemide 20 mg tablet 20 mg PO DAILY PRN (Reason: edema) Qty: 90 1RF ramipril 10 mg capsule 10 mg PO BID Qty: 180 3RF diclofenac sodium 1 % gel 4 g topical QID PRN (Reason: Joint Pain) 90 Days Qty: 300 1RF Rx Instructions: apply to single knee, ankle, foot; for foot includes sole/toes/top of foot glimepiride 1 mg tablet 1 mg PO BID Qty: 180 3RF (DME) OneTouch Ultra Blue Test Strip strip See Dose Instructions .ROUTE .MEDSUPPLY Qty: 10 Rx Instructions: As directed (DME) lancets [OneTouch Delica Lancets] 33 gauge misc See Dose Instructions .ROUTE .MEDSUPPLY Qty: 100 Rx Instructions: As directed vitamin B complex Capsule 1 cap PO QPM krill oil [id number] mg Capsule 1 cap PO QDL flaxseed oil 1,000 mg Capsule 1,000 mg PO QDL Rx Instructions: administer with a meal atorvastatin 40 mg tablet 40 mg PO QDL Rx Instructions: TAKE 1 TABLET BY MOUTH DAILY TAKE ALONG WITH 20 MG TABLET FOR 60 MG DAILY atorvastatin 20 mg tablet 20 mg PO QDL Rx Instructions: TAKE 1 TABLET BY MOUTH DAILY TAKE ALONG WITH 40 MG TABLET FOR 60 MG DAILY atenolol 50 mg tablet 25 mg PO QAM Rx Instructions: TAKE 1/2 TABLET BY MOUTH ONCE DAILY (qam) loperamide 2 mg Capsule 2 mg PO Q6 PRN (Reason: diarrhea) Qty: 45 0RF Changed amiloride 5 mg tablet 5 mg PO Q OTHER DAY Qty: 90 1RF magnesium L-lactate 84 mg tablet extended release 84 mg PO BID Qty: 90 0RF Discontinued cholecalciferol (vitamin D3) 1,000 unit capsule 3,000 units PO QDL Hold Instructions: Home Medication placed on hold at Doctor's office metformin 500 mg tablet extended release 24 hr 500 mg PO BID Qty: 180 3RF Rx Instructions: Take on a full stomach pantoprazole 40 mg tablet,delayed release (DR/EC) 40 mg PO QAM Discharge Orders: Discharge Order (Routine); Ordered 02/26/24 Ordered By: Isaak Mccarthy Admission Data Admit Date/Time: 02/21/24 21:16 Attending Provider: Isaak Mccarthy Admit Provider: Galina Marino Primary Care Provider: Hai Khan III Other Providers: Galina Marino; Yunier Robertson; Adelso Wheatley Kevin C.; Starr Alfonso Other Interventions: Discharge Summary Assessment (RN) Last Done: 02/26/24 15:41 Coding Level of Care Code 27873 INP/OBS DISCH >30 MIN Diagnoses Hypomagnesemia E83.42 Diarrhea R19.7 Type 2 diabetes mellitus with diabetic nephropathy, without long-term current use of insulin E11.21 Diabetes mellitus custodial insulin use: without custodial use Diabetes mellitus type: type 2 Aldosteronism E26.9
[2024-02-26] MEDS: ATENOLOL 25 MG TABLET PO ONE (15:50)
== END 2024-02-26 18:19 | disposition home or self-care (01) | DRG 641 ==
LOC: ED 19:04 → EDINP 21:16 → SUATTDRO 21:16 → 2N 22:31